=== PATIENT | female | born 1970 | race Caucasian/White ===

== ENCOUNTER 2023-05-12 10:22 | Outpatient (OUT) | payer OTHER, SELFPAY ==
[2023-05-12 10:43] LABS: Basophils Absolute Auto 0.1 10^3/uL (0.0-0.1); Basophils Percent Auto 1.4 % (0.2-2.0); Eosinophils Absolute Auto 0.2 10^3/uL (0.0-0.7); Eosinophils Percent Auto 3.4 % (0.9-7.0); Hematocrit 46.3 % (36.0-48.0); Hemoglobin 15.6 g/dL (12.0-16.0); Immature Granulocytes Abs Auto 0.01 10^3/uL (0.00-0.03); Immature Granulocytes Pct Auto 0.2 % (0.0-0.5); Lymphocytes Absolute Auto 1.3 10^3/uL (1.2-3.8); Lymphocytes Percent Auto 22.3 % (20.5-60.0); Mean Corpuscular HGB Conc 33.7 g/dL (29.9-35.2); Mean Corpuscular Hemoglobin 29.3 pg (26.7-34.0); Mean Platelet Volume 9.9 fL (9.5-13.5); Monocytes Absolute Auto 0.3 10^3/uL (0.3-0.8); Monocytes Percent Auto 6.1 % (1.7-12.0); Neutrophils Absolute Auto 3.7 10^3/uL (1.4-6.5); Neutrophils Percent Auto 66.6 % (43.0-75.0); Platelet Count 326 10^3/uL (150-450); Red Blood Count 5.32 10^6/uL (4.20-5.40); Red Cell Distribution Width 12.1 % (11.0-15.0); White Blood Count 5.6 10^3/uL (4.0-11.0)
[2023-05-12 10:56] LABS: Anion Gap 11.6; Calcium 9.2 mg/dL (8.5-10.1); Carbon Dioxide 30.5 mmol/L (21.0-32.0); Chloride 104 mmol/L (98-107); Estimated GFR (African America >60 (>=60); Estimated GFR (Non-African Ame >60 (>=60); Glucose 101 mg/dL (74-106); Potassium 4.1 mmol/L (3.5-5.1); Sodium 142 mmol/L (136-145)
== END 2023-05-12 10:23 ==
LOC: LAB 10:26
PROVIDERS: PCP Family Medicine; Visit Provider Internal Medicine Cardiovascular Disease
DX: I48.91 Unspecified atrial fibrillation (principal)
CPT/HCPCS: 36415; 80048; 85025

== ENCOUNTER 2023-08-24 16:30 | Outpatient (OUT) | payer OTHER, SELFPAY ==
[2023-08-26 04:07] LABS: FSH 77.7 mIU/mL (.); Luteinizing Hormone(LH) 17.9 mIU/mL (.)
== END 2023-08-24 16:31 | disposition home or self-care (01) ==
PROVIDERS: PCP Family Medicine
DX: Z00.00 Encounter for general adult medical examination without abnormal findings (principal)
CPT/HCPCS: 36415; 83001; 83002

== ENCOUNTER 2024-05-20 14:39 | Outpatient (OUT) | payer OTHER, SELFPAY ==
[2024-05-20 15:09] LABS: Basophils Absolute Auto 0.1 10^3/uL (0.0-0.1); Eosinophils Absolute Auto 0.3 10^3/uL (0.0-0.7); Eosinophils Percent Auto 3.3 % (0.9-7.0); Hematocrit 42.9 % (36.0-48.0); Hemoglobin 14.1 g/dL (12.0-16.0); Immature Granulocytes Abs Auto 0.01 10^3/uL (0.00-0.03); Immature Granulocytes Pct Auto 0.1 % (0.0-0.5); Lymphocytes Absolute Auto 1.7 10^3/uL (1.2-3.8); Lymphocytes Percent Auto 20.8 % (20.5-60.0); Mean Corpuscular HGB Conc 32.9 g/dL (29.9-35.2); Mean Corpuscular Volume 88.3 fL (81.0-99.0); Mean Platelet Volume 9.7 fL (9.5-13.5); Monocytes Absolute Auto 0.6 10^3/uL (0.3-0.8); Monocytes Percent Auto 7.4 % (1.7-12.0); Neutrophils Absolute Auto 5.4 10^3/uL (1.4-6.5); Neutrophils Percent Auto 67.4 % (43.0-75.0); Platelet Count 293 10^3/uL (150-450); Red Blood Count 4.86 10^6/uL (4.20-5.40); Red Cell Distribution Width 12.4 % (11.0-15.0); White Blood Count 8.1 10^3/uL (4.0-11.0)
[2024-05-20 15:26] LABS: Anion Gap 11.9; BUN Creatinine Ratio 35.2; Calcium 8.8 mg/dL (8.5-10.1); Carbon Dioxide 30.1 mmol/L (21.0-32.0); Chloride 104 mmol/L (98-107); Estimated GFR (African America >60 (>=60); Estimated GFR (Non-African Ame >60 (>=60); Glucose 93 mg/dL (74-106); Sodium 142 mmol/L (136-145)
== END 2024-05-20 14:40 | disposition home or self-care (01) ==
LOC: LAB 14:44
PROVIDERS: PCP Family Medicine; Visit Provider Internal Medicine Cardiovascular Disease
DX: I48.0 Paroxysmal atrial fibrillation (principal)
CPT/HCPCS: 36415; 80048; 85025

== ENCOUNTER 2024-06-06 07:54 | Outpatient (OUT) | payer OTHER, SELFPAY ==
--- NOTE | 2024-06-06 08:01 | CA_ITS ---
Patient Name: HILDA STANLEY MR#: [id number] : 1970 Exam Date: 06/06/2024 Ordering Doctor: KHAI SAEED ECHOCARDIOGRAM REPORT PROCEDURE: CA ECHO DOPPLER COMPLETE INDICATIONS: Paroxysmal A-fib COMPARISON: None. DESCRIPTION: COMPLETE ECHOCARDIOGRAM Real-time transthoracic echocardiography with 2D, M-mode, spectral and color flow Doppler performed. QUALITY: Technical quality was good. LEFT VENTRICLE: Normal chamber size. Borderline left ventricular hypertrophy. Abnormal septal motion, likely due to bundle branch block. Global left ventricular systolic function is normal. LV EF: Estimated left ventricular ejection fraction is 60-65 % DIASTOLIC: Diastolic function is indeterminate. ATRIAL SEPTUM: LEFT ATRIUM: Moderate dilatation. RIGHT ATRIUM: Moderate dilatation. RIGHT VENTRICLE: Normal chamber size. Normal right ventricular systolic function. Pacer wire present. TRICUSPID VALVE: Normal mobility and thickness. No stenosis with moderate regurgitation. Mild pulmonary hypertension. RVSP 35 mmHg MITRAL VALVE: Normal mobility and thickness. No evidence of mitral valve stenosis. Mild mitral annular calcification. Trivial mitral regurgitation. AORTIC VALVE: Normal trileaflet appearance. Thickened aortic valve. Normal leaflet mobility. No evidence of aortic valve stenosis. No aortic regurgitation. AORTIC ROOT: Normal diameter and appearance. PULMONIC VALVE: Normal thickness and mobility. No stenosis. Trivial regurgitation. PERICARDIUM: No evidence of pericardial effusion. IVC: Normal size with partial collapse. PLEURA: CONCLUSION: 1. Borderline concentric left ventricular hypertrophy with normal systolic function. Abnormal septal motion is likely due to bundle branch block. LVEF is estimated at 60 to 65%. 2. Normal right ventricular size and systolic function. 3. Moderate biatrial dilatation. 4. Moderate tricuspid regurgitation. 5. Mildly elevated right-sided pressures. 6. No pericardial effusion. Adult Echocardiography Procedure Report Left Ventricle LVEDD (3.7 - 5.6 cm): 4.75 cm LVESD (2.2 - 4.0 cm): 3.47 cm LVIVS thickness (0.6 - 1.2 cm): 0.93 cm LVPW thickness (0.5 - 1.0 cm): 1.07 cm e': 0.10 m/s E - e': 6.58 LVOT Max Gradient: 5.15 mm[Hg] LVOT Area (cm2): 1.13 m/s Peak Velocity (LVOT): 1.13 m/s Mean Velocity (LVOT): 0.78 m/s LVOT Diameter 1.88 cm Left Ventricular Ejection Fraction: 60-65 % Left Atrium LA Volume Index (2D A2C): 39.96 ml/m2 Left Atrium Systolic Dimension: 3.74 cm Mitral Valve MV E to A Ratio: 1 Mitral Valve A-Wave Peak Velocity: 0.64 m/s Mitral Valve E-Wave Peak Velocity: 0.64 m/s Right Ventricle RV Internal Diastolic Dimension: 3.28 cm Aorta AO Root Diam: 3.33 cm Ascending Ao Diam: 3.37 cm, 3.18 cm Aortic Valve AoV Area (Peak Henrry): 2.32 cm2, 2.32 cm2 AoV Area (VTI): 2.20 cm2, 2.20 cm2 Peak Velocity(Antegrade Flow): 1.36 m/s Peak Gradient(Antegrade Flow): 7.40 mm[Hg] Mean Velocity(Antegrade Flow): 0.90 m/s Mean Gradient(Antegrade Flow): 3.83 mm[Hg] Velocity Time Integral: 27.97 cm Tricuspid Valve Peak Velocity (Regurgitant Flow): 2.18 m/s, 2.60 m/s, 2.16 m/s Pulmonic Valve Mean Gradient: 1.47 mm[Hg], 1.60 mm[Hg] Mean Velocity: 0.56 m/s, 0.59 m/s Peak Velocity: 0.87 m/s Peak Gradient: 2.82 mm[Hg], 3.27 mm[Hg] Right Atrium Right Atrium Systolic Pressure: 45.96 ml, 45.96 ml Dictated by: Rick Landrum M.D. on 06/06/2024 at 13:37 Approved by: Rick Landrum M.D. on 06/06/2024 at 13:41
== END 2024-06-06 07:55 | disposition home or self-care (01) ==
LOC: CARD 07:54
PROVIDERS: PCP Family Medicine; Visit Provider Internal Medicine Cardiovascular Disease
DX: I48.0 Paroxysmal atrial fibrillation (principal)
CPT/HCPCS: 93306

== ENCOUNTER 2024-07-18 16:01 | Outpatient (OUT) | payer OTHER, SELFPAY ==
[2024-07-18 16:21] LABS: Basophils Absolute Auto 0.1 10^3/uL (0.0-0.1); Basophils Percent Auto 0.9 % (0.2-2.0); Eosinophils Absolute Auto 0.2 10^3/uL (0.0-0.7); Eosinophils Percent Auto 2.7 % (0.9-7.0); Hematocrit 44.2 % (36.0-48.0); Hemoglobin 14.6 g/dL (12.0-16.0); Immature Granulocytes Abs Auto 0.02 10^3/uL (0.00-0.03); Immature Granulocytes Pct Auto 0.2 % (0.0-0.5); Lymphocytes Percent Auto 23.2 % (20.5-60.0); Mean Corpuscular Hemoglobin 28.9 pg (26.7-34.0); Mean Corpuscular Volume 87.5 fL (81.0-99.0); Mean Platelet Volume 9.5 fL (9.5-13.5); Monocytes Absolute Auto 0.6 10^3/uL (0.3-0.8); Monocytes Percent Auto 7.5 % (1.7-12.0); Neutrophils Absolute Auto 5.6 10^3/uL (1.4-6.5); Neutrophils Percent Auto 65.5 % (43.0-75.0); Platelet Count 317 10^3/uL (150-450); Red Blood Count 5.05 10^6/uL (4.20-5.40); White Blood Count 8.5 10^3/uL (4.0-11.0)
[2024-07-18 16:36] LABS: Troponin I High Sensitivity 5.8 pg/mL (4.0-51.3)
[2024-07-18 17:14] LABS: Erythrocyte Sedimentation Rate 5 mm/hr (<=30)
[2024-07-20 14:09] LABS: C-Reactive Protein, Cardiac 0.24 mg/L (0.00-3.00)
== END 2024-07-18 16:02 | disposition home or self-care (01) ==
LOC: LAB 16:01
PROVIDERS: PCP Family Medicine; Visit Provider Nurse Practitioner Family
DX: R07.89 Other chest pain (principal); R06.00 Dyspnea, unspecified; R06.02 Shortness of breath
CPT/HCPCS: 36415; 84484; 85025; 85652; 86140

== ENCOUNTER 2024-07-22 07:06 | Outpatient (OUT) | payer OTHER, SELFPAY ==
--- OUTSIDE RECORDS SUMMARY | 2024-07-22 07:09 | XMS_ITS | CCD ---
Author Organization [facility] Care Team Providers Care Hogshead Builder Name Role Phone Rashid Pruitt Attending Unavailable Rashid Pruitt Admitting Unavailable Kasey Pop Primary Care Unavailable RANDAL MEAZ Admitting Unavailable RANDAL MEZA Attending Unavailable KASEY POP Referring Unavailable KASEY POP Primary Care Unavailable NITA CHIANG Admitting Unavailable NITA CHIANG Attending Unavailable KASEY POP Referring Unavailable KASEY POP Primary Care Unavailable UNKNOWN, PROVIDER Admitting Unavailable UNKNOWN, PROVIDER Attending Unavailable KASEY POP Referring Unavailable KASEY POP Primary Care Unavailable PA Procedure Practitioner Unavailab le UNKNOWN, PROVIDER Surgeon Unavailable PA Procedure Practitioner Unavailab RANDAL Hogan Surgeon Unavailable Monica Garcia Unavailable LUIS Cardozo, DR AUNG Syed Admitting Unavaila skyler Cardozo, DR AUNG Syed Attending Unavaila skyler POP ., DR PARKS Primary Care Unavailable CLEMENT PEREZ Admitting Unavailable CLEMENT PEREZ Attending Unavailable MARTIN ., DR PARKS Primary Care Unavailable CLEMENT PEREZ Consulting Unavailable MARTIN ., DR APRKS Admitting Unavailable MARTIN ., DR PARKS Attending Unavailable MARTIN ., DR PARKS Primary Care Unavailable MARTIN ., DR PARKS Consulting Unavailable Kasey Pop Primary Care Physician Alexandria Fernandez Referring Unavailable Alexandria Fernandez Attending Unavailable Alexandria Fernandez Admitting Unavailable CLEMENT PEREZ Admitting Unavailable CLEMENT PEREZ Attending Unavailable CLEMENT PEREZ Referring Unavailable DELFINA TAO Attending Unavailable CLEMENT PEREZ Referring Unavailable STANLEY REYES Attending Unavailable CLEMENT PEREZ Attending Unavailable CLEMENT PEREZ Referring Unavailable CLEMENT PEREZ Referring Unavailable Allergies Allergy Classification Reported Allergen(s) Allergy Type Date of Onset Reaction(s) Facility (1 source) 09068,00; Translations: [Unknown] Propensity to adverse reactions (disorder) 9 [facility] Repository (1 source) No Known Medication Allergies; Translations: [No Known Medication Allergies] Propensity to adverse reactions (disorder) [facility] Repository Medications Current Medications Medication Drug Class(es) Dates Sig (Normalized) Sig (Original) Acetaminophen / oxyCODONE (1 source) Opioid Agonist Start: 04-08-2014 Percocet 325 mg-5 mg Tab 1 tab(s), Oral, q4hr as needed for pain, 15 tab(s), Refill(s) 0, Take one tab by mouth every four hours as needed for pain Start Date: 04/08/14 Status: Ordered aspirin 81 mg delayed release oral tablet (2 sources) Platelet Aggregation Inhibitor, Nonsteroidal Anti-inflammatory Drug Start: 11-11-2021 take 1 mg by mouth once daily aspirin 81 mg Oral EC Tab mg tab(s), Oral, Daily, Refills(s) 0 Start Date: 11/11/21 Status: Ordered Aspirin Active 24 hr dilTIAZem hydrochloride 240 mg extended release oral capsule (2 sources) Calcium Channel Sarah Start: 11-11-2021 take 1 capsule by mouth once daily Cardizem CD 240 mg/24 hours Cap-ER mg cap(s), Oral, Daily, Refills(s) 0 Start Date: 11/11/21 Status: Ordered Cartia XT Active lisinopril 5 mg oral tablet (2 sources) Angiotensin Converting Enzyme Inhibitor Start: 11-11-2021 take 1 mg by mouth once daily lisinopril 5 mg Tab mg tab(s), Oral, Daily, Refills(s) 0 Start Date: 11/11/21 Status: Ordered Lisinopril Activ e promethazine hydrochloride 25 mg oral tablet (1 source) Phenothiazine Start: 04-08-2014 take 1 tablet by mouth every six hours as needed for nausea and nausea and vomiting, then take 1 tablet by mouth every six hours as needed for nausea and nausea and vomiting Phenergan 25 mg Tab 1 tab, Oral, q6hr, PRN Nausea, Take one by mouth every six hours for nausea and vomiting, # 10 tab(s), Refills(s) 0 Start Date: 04/08/14 Status: Ordered valACYclovir 1000 mg oral tablet (1 source) Herpesvirus Nucleoside Analog DNA Polymerase Inhibitor, Herpes Simplex Virus Nucleoside Analog DNA Polymerase Inhibitor, Herpes Zoster Virus Nucleoside Analog DNA Polymerase Inhibitor Start: 09-08-2021 take 1 tablet by mouth every eight hours Valtrex 1 GM 1 tablet Orally tid for 10 day(s) Aug, Active Problems Active Problems Problem Classification Problem Date Documented Date Episodic/Chronic Acute cerebrovascular disease (1 source) Cerebrovascular accident 11-11-2021 Chronic Calculus of urinary tract (1 source) Kidney stone 11-11-2021 Episodic Cardiac and circulatory congenital anomalies (4 sources) Persistent left superior vena cava; Translations: [PERSISTENT LEFT SUPERIOR VENA CAVA] Onset: 04-02-2023 Chronic Cardiac dysrhythmias (5 sources) Atrial fibrillation; Translations: [Paroxysmal atrial fibrillation] Onset: 03-24-2023 11-11-2021 Chronic Conduction disorders (4 sources) Presence of cardiac pacemaker; Translations: [Encounter for adjustment and management of automatic implantable cardiac defibrillator] Onset: 04-04-2023 Chronic Essential hypertension (2 sources) Essential (primary) hypertension; Translations: [Essential (primary) hypertension] Onset: 03-24-2023 Chronic Genitourinary symptoms and ill-defined conditions (1 source) Nocturia 01-13-2022 Episodic Heart valve disorders (1 source) Rheumatic tricuspid insufficiency; Translations: [RHEUMATIC TRICUSPID INSUFFICIENCY] Onset: 04-04-2023 Chronic Other circulatory disease (2 sources) Presence of other cardiac implants and grafts; Translations: [Presence of other cardiac implants and grafts] Onset: 05-12-2024 Chronic Unclassified (1 source) Asymptomatic microscopic hematuria 01-13-2022 Unclassified (1 source) Supraventricular tachycardia, unspecified; Translations: [Supraventricular tachycardia, unspecified] Onset: 03-24-2023 Past or Other Problems Problem Classification Problem Date Documented Date Episodic/Chronic Unclassified (1 source) Supraventricular tachycardia, unspecified; Translations: [Supraventricular tachycardia, unspecified] Onset: 05-12-2024 Viral infection (1 source) Zoster without complications; Translations: [Herpes zoster without complication B02.9] Onset: 09-08-2021 Resolved: 09-08-2021 Episodic Results Test Name Value Interpretation Reference Range Facility 36on 07-19-2024 36 Appreciate your help! [facility] 36 She can get a limite d ECHO, assessing for effusion. I didn't see anything concerning on EKG, did you Dr. Perez? [facility] 36on 07-18-2024 36 Just spoke with Hollycoleen tano and she hasn't transmitted since 07/12. She just left the office. I will email the ECG to you and Dr. Perez. She will have labs drawn right now. I did ask her to do a manual transmission when she gets home. [facility] 36 Patient just had ech o last month prior to ablation. Did you still want another one? I spoke with scheduling at [facility] and they can't get her in for an echo for a week or so. Unless you wanted a limited, as they have more wiggle room for that. Patient is coming to the office right now for EKG and labs. Will call Evoke right now also. [facility] 36 Patient called to make you aware of an episode that happened yesterday morning around 7:50am. She was woken up by chest pain. Says she wasn't able to breathe during this time. Patient states it felt like someone was gripping my heart . She says she hasn't felt right since then. She did not go to the ED. Any suggestions? [facility] Follow-Upon 07-12-2024 Follow-Up [id number] Todd Stanley 1970 F Date Provider Department Center 07/12/2024 166-DELFINA TAO [facility]ARD [facility] Family History Problem Relation Age of Onset Bilateral breast cancer Other Diabetes Other Coronary artery disease Other Hypertension Other Family Status - Relation Status Age at Other Level of Service:18057 PA OFFICE/OUTPATIENT ESTABLISHED MOD MDM 30 MIN Reason for Visit and Comments: Atrial Fibrillation [80] Hypertension [077478] [facility] Telephoneon 07-01-2024 Telephone [id number] Todd Stanley 1970 F Date Provider Department Center 07/01/2024 Jimmie-MEHRDAD LOPEZ [facility] [place] [facility] Family History Problem Relation Age of Onset Bilateral breast cancer Other Diabetes Other Coronary artery disease Other Hypertension Other Family Status - Relation Status Age at Other Reason for Visit and Comments: 3 week post ablation f/u [Other] Normal [facility] Telephoneon 06-16-2024 Telephone [id number] Todd Stanley 1970 F Date Provider Department Center 06/16/20241986-MEHRDAD LOPEZ [facility] [place] [facility] Family History Problem Relation Age of Onset Bilateral breast cancer Other Diabetes Other Coronary artery disease Other Hypertension Other Family Status - Relation Status Age at Other Reason for Visit and Comments: week f/u post ablation [Other] Normal [facility] HPon 06-09-2024 [facility] Electrophysiology Consult Note Reason for visit: Afib ablation 06/09/24 Pt here for Afib ablation. Pt had episode of AF 1 month ago and was present for >1hr. She has come for Afib ablation. She is ablae to tolerate DOAC and previously underwent WATCHMAN for hematuria. Previously, she underwent hysterectomy in October of 2018 and in November of 2018 she sustained a cerebrovascular event consisting of slurred speech and unsteady gait among other symptoms. She was evaluated by Dr. Tiago Howe from Neurology at the time of her cerebrovascular symptoms according to Neurology note Left-sided weakness and left-sided numbness followed by an acute confusional state and transient global type a knee just symptoms. She was also observed to have dysarthria and difficulty with her speech as well as a left facial droop . An MRI of the brain could not be performed due to her pacemaker not being MRI compatible. At that time she was evaluated by Cardiology and interrogation of her pacemaker revealed 1.7% burden of atrial fibrillation. She was was recommended anticoagulation therapy. She has been maintained on apixaban 5 milligram twice daily. 06/08/23 HPI: patient for follow-up s/p generator change Submuscular PPM patient was previously seen by Jonathan Crenshaw for postop pain and as a precaution antibiotics were prescribed. she has come for follow-up for evaluation of her site. Patient denies aches, chills, fever --- 03/24/23 HPI: Todd Stanley is a 53 y.o. 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 She then had a gen change in [address] Cain with a suubsequent pocket revision by Dr Grider 2 months later. Subsequently this was infected and she underwent lead extraction at [facility]. A new dual chamber system was implanted at [facility]. She is also s/p WATCHMAN implant by Dr DAVILA. Now her device has approached HANNA. The current device is submuscular. She has [employer] device with 96% A pacing and 69% V pacing. She has underlying junctional and noted to have 2: 1 block when HR is >100bpm. PMH: Past Medical History: Diagnosis Date Abnormal ECG Arrhythmia Atrial fibrillation (CMS/HCC) Hypertension Kidney stones Myalgia Sinus node dysfunction (CMS/HCC) PSH: Past Surgical History: Procedure Laterality Date ABLATION OF DYSRHYTHMIC FOCUS CARDIAC CATHETERIZATION SECTION, CLASSIC INSERT / REPLACE / REMOVE PACEMAKER 2007 OTHER SURGICAL HISTORY watchman device placed SH: Social Determinants of Health Tobacco Use: Low Risk (06/09/2024) Patient History Smoking Tobacco Use: Never Smokeless Tobacco Use: Never Passive Exposure: Never Alcohol Use: Not on file Financial Resource Strain: Not on file Food Insecurity: Not on file Transportation Needs: Not on file Physical Activity: Not on file Stress: Not on file Social Connections: Not on file Intimate Partner Violence: Not At Risk (06/08/2023) [place] Safety & Environment Fear of Current or Ex-Partner: No Emotionally Abused: No Physically Abused: No Sexually Abused: No Physically or Sexually Abused: Not on file Depression: Not at risk (06/08/2023) PHQ-2 PHQ-2 Score: 0 Housing Stability: Not on file Utilities: Not on file Allergies: No Known Allergies Weight: 54.9kg Visit Vitals BP 154/86 Pulse 65 Temp 36.3 ???C (97.3 ???F) (Temporal) Resp 16 Ht 1.575 m (5' 2 ) Wt 59.7 kg (131 lb 9.8 oz) SpO2 100% BMI 24.07 kg/m??? OB Status Postmenopausal Smoking Status Never BSA 1.62 m??? Meds: No current facility-administered medications on file prior to encounter. Current Outpatient Medications on File Prior to Encounter Medication Sig Dispense Refill aspirin 81 mg EC tablet Take 81 mg by mouth in the morning. dilTIAZem CD (Cardizem CD) 120 mg 24 hr capsule TAKE 1 CAPSULE TWICE A DAY 60 capsule 0 lisinopril 5 mg tablet TAKE 1 TABLET DAILY 90 tablet 3 traMADol (Ultram) 50 mg tablet TAKE 1 TABLET BY MOUTH EVERY 8 HOURS NEEDED FOR SEVERE PAIN ROS: Review of Systems Constitutional: Positive for malaise/fatigue. All other systems reviewed and are negative. Physical Exam: Constitutional General Appearance: well-nourished, well-developed, appears stated age Level of Distress: comfortable Psychiatric Mental Status: alert, normal affect Orientation: oriented to time, place, and person Insight: good judgement Eyes Lids and Conjunctivae: non-injected, no xanthelasma ENMT Ears: no lesions on external ear Nose: no lesions on external nose Oropharynx: no cyanosis, no pallor Neck Neck: supple, trachea midline Carotid Arteries: bilateral normal upstroke, no bruits Jugular Veins: normal jugular venous pressure Thyroid: not enlarged Lungs Respiratory Effort: unlabored Chest Exam: normal curvature, no thoracic deformity Auscultation: clear, no w (more content not included)... Normal [facility] NURSNOTEon 06-09-2024 NURSNOTE EKG called to do EKG . Pt/inr sent Normal [facility] Orders Onlyon 06-09-2024 Orders Only [id number] Todd Stanley 1970 F Date Provider Department Center 06/09/20241986-MEHRDAD LOPEZ [facility] [place] [facility] Family History Problem Relation Age of Onset Bilateral breast cancer Other Diabetes Other Coronary artery disease Other Hypertension Other Family Status - Relation Status Age at Other Normal [facility] POCT GLUCOSE METER UNSOLICIT ED RESULTSon 06-09-2024 Glucose [Mass/Vol] 104 mg/dL Normal 70-105 [facility] Comment on above: Order Comment: Waive d Testing in the ED is performed under the ED CLIA certificate #[id number]. Result Comment: [facility] [place] Performed By: #### L [id number] ####[facility] ([facility] [place] [address] PROTIME-INRon 06-09-2024 INR IN PPP BY COAGULATION ASSAY 0.97 Normal 0.90-1.10 [facility] Comment on above: Result Comment: [facility] P RECOMMENDED INR FOR WARFARIN THERAPY CONDITION INR PROPHYLAXIS OF VENOUS THROMBOSIS 2-3 (HIGH-RISK SURGERY) TREATMENT OF VENOUS THROMBOSIS 2-3 TREATMENT OF PULMONARY EMBOLISM 2-3 PREVENTION OF SYSTEMIC EMBOLISM: 2-3 ACUTE MYOCARDIAL INFARCTION TISSUE HEART VALVES VALVULAR HEART DISEASE ATRIAL FIBRILLATION RECURRENT SYSTEMIC EMBOLISM MECHANICAL HEART VALVE 2.5-3.5 FROM: ORAL ANTICOAGULANTS. MECHANISM OF ACTION, CLINICAL EFFECTIVENESS, AND OPTIMAL THERAPEUTIC RANGE. CHEST 1995;108:231S-246S. Performed By: #### L [id number] ####[facility] ([facility] [place] [address] PROTHROMBIN TIME (PT) IN PPP BY COAGULATION ASSAY 12.9 Seconds Normal 12.3-14.8 [facility] Comment on above: Performed By: #### L [id number] ####[facility] ([facility] [place] [address] CTA CHEST W IV CONTRASTon CTA CHEST W IV CONTRAST CTA CHEST W IV CONTRAST 06/02/2024 8:49 AM CLINICAL INDICATIONS: Paroxysmal atrial fibrillation. Preablation evaluation. PROTOCOL: Gated chest CTA CONTRAST: 100 mL Omnipaque 350 TECHNIQUE: Multidetector CT axial slices of the chest were obtained with IV contrast. Multiplanar reformats were performed and viewed on a separate workstation and reviewed to further define anatomy and possible pathology. All CT scans at this facility use dose modulation, iterative reconstruction, and/or weight based dosing when appropriate to reduce radiation dose to as low as reasonably achievable. COMPARISON: None. FINDINGS: Lower neck: Thyroid gland within normal limits, no supraclavicle adenopathy. Vessels: Pulmonary arteries are Within normal limits. Mild atherosclerotic changes in the aorta. and coronary arteries. Mediastinum and Justina: Within normal limits. Heart: Normal size. No pericardial effusion. Airways: Within normal limits Lungs: A lateral dependent atelectasis. No other parenchymal abnormality Pleura: Within normal limits. Chest Wall: Left subclavian pacer with wires coursing within the right heart and coronary sinus associated with metal artifacts. Upper Abdomen: Within normal limits. Bones: Mild bony spurring in the thoracic spine suggesting mild spondylosis. No acute bony abnormality. Small sclerotic bone island is seen in the thoracic spine at approximately T10 level 3-D volume rendered images of the left atrium and pulmonary veins are obtained in various projections. Watchman device is seen in the left atrial appendage. Left superior pulmonary vein ostium measures 1.1 cm in diameter and first branch is approximately 2 cm from the ostium. Left inferior pulmonary vein ostium is 1.1 cm and first branch is approximately 2.4 cm from the ostium. The right superior pulmonary vein ostium is 1.7 cm in diameter and first branch is approximately 1.7 cm from the ostium. The right inferior pulmonary vein ostium is 1.5 cm and first branch is approximately 1.6 cm from the ostium. Contrast-filled esophagus is seen immediately posterior to the left atrium and in close proximity to the right inferior pulmonary vein ostium and also the left inferior pulmonary vein ostium. IMPRESSION: Watchman device in the left atrial appendage with no definite complications appreciated. Left subclavian pacer in place with wires coursing within the right heart and coronary sinus associated with metallic artifacts. Normal size and configuration of the left atrium and 2 pulmonary veins on each side with the measurements described above. Otherwise, no evidence of acute pulmonary pathology. Electronically signed: Fatmata Wheeler MD. Not Vldtd Invalid Interpretation Code [facility] Comment on above: Order Comment: Modesta freedman schedule prior to Jun 30 Orders Onlyon 05-17-2024 Orders Only [id number] Todd Stanley 1970 F Date Provider Department Center 05/17/2024 Sosa-AMYSTANLEY Salas Leyla Baez. Family History Problem Relation Age of Onset Bilateral breast cancer Other Diabetes Other Coronary artery disease Other Hypertension Other Family Status - Relation Status Age at Other Normal [facility] Prep for Procedureon 024 Prep for Procedure [id number] Todd Stanley 1970 F Date Provider Department Center 05/17/2024 CLEMENT AGUAYO [facility] [place] [facility] Family History Problem Relation Age of Onset Bilateral breast cancer Other Diabetes Other Coronary artery disease Other Hypertension Other Family Status - Relation Status Age at Other Normal [facility] Office Visiton 05-12-2024 Follow-up visit [id number] Todd Stanley 1970 F Date Provider Department Center 05/12/2024 STANLEY GONZALEZ QIAN Plummer Family History Problem Relation Age of Onset Bilateral breast cancer Other Diabetes Other Coronary artery disease Other Hypertension Other Family Status - Relation Status Age at Other Level of Service:06735 PA OFFICE/OUTPATIENT ESTABLISHED MOD MDM 30 MIN Normal [facility] MA Mamm Screen w/CAD if perf and 3D Bilon 12-28-2023 MA Mamm Screen w/CAD if perf and 3D Raymond Exam Date/Time: 12/24/2023 16:35 EST Reason for Exam: Z12.31 Report IMPRESSION: BIRADS 1 NEGATIVE, NORMAL INTERVAL FOLLOW-UP.12 MONTH RECALL. CLINICAL HISTORY: Z12.31. COMPARISON: 10/06/2018. COMMENT: Routine views and tomosynthesis views of both breasts were obtained. There are scattered areas of fibroglandular density. No dominant breast mass nor neoplastic calcifications are noted. There has been no significant change when compared to the prior exam. The examination was reviewed with Computer Aided Detection. Breast Density: No Mammography is very important to your health. The current [employer] and National [employer] Network guidelines recommends annual mammography beginning at age 40. This facility utilizes a reminder system to ensure all patients receive reminder notifications at the appropriate time based on the recommendations of this exam. Board Certified Radiologists. Accredited by the ACR and FDA. Ordering Provider: Alexandria Fernandez FINAL REPORT Dictated: 12/28/2023 11:46 am Saroj Alcala M.D. Signed (Electronic Signature): 12/28/2023 11:46 am Signed by: Saroj Alcala M.D. Transcribed by: TYSON Technologist: BURTON Assessment: BI-RADS Category 1-Negative Recommendation: Normal interval follow-up Normal [facility] Consent for Treatmenton Consent for Treatment [id number] .[id number] Normal [facility] Physician Orderon 12-15-2023 Physician Order [id number] .00TIFF Normal [facility] ECHOCARDIO M/2D COMPLETEon 0 04-02-2023 ECHOCARDIO M/2D COMPLETE Patient: TODD STANLEY Exam Date: 04/02/2023 : 1970 Gender:F Ordering : CLEMENT PEREZ Admission #: [id number] Family : Order #: [id number] CLICK HERE TO VIEW EXAM ECHOCARDIOGRAM REPORT PROCEDURE: CARDIO PULMONARY ECHOCARDIO M/2D COMP INDICATIONS: Persistent left superior vena cava COMPARISON: None. DESCRIPTION: COMPLETE ECHOCARDIOGRAM Real-time transthoracic echocardiography with 2D, M-mode, spectral and color flow Doppler performed. QUALITY: Technical quality was good. LEFT VENTRICLE: Normal chamber size. Moderate concentric left ventricular hypertrophy. LV EF: Global left ventricular systolic function is hyperdynamic. Calculated left ventricular ejection fraction is 69% DIASTOLIC: Diastolic function is normal. ATRIAL SEPTUM: Inadequately seen. LEFT ATRIUM: Severe dilatation. RIGHT ATRIUM: Mild dilatation. RIGHT VENTRICLE: Normal chamber size. Normal right ventricular systolic function. Pacer wire present. TRICUSPID VALVE: Normal mobility and thickness. Moderate regurgitation. Mild pulmonary hypertension. RVSP 39mmHg MITRAL VALVE: Normal mobility and thickness. No evidence of mitral valve stenosis. There is no mitral annular calcification. Trivial mitral regurgitation. AORTIC VALVE: Normal trileaflet appearance. No visible sclerosis. Normal leaflet mobility. No evidence of aortic valve stenosis. Trivial aortic regurgitation. AORTIC ROOT: Normal diameter and appearance. PULMONIC VALVE: Normal thickness and mobility. No stenosis. No regurgitation. PERICARDIUM: Anterior free space; trivial effusion versus fat pad. IVC: Mild dilatation. No collapse CONCLUSION: 1. Global left ventricular systolic function is hyperdynamic; visually estimated ejection fraction 65 to 70%. No wall motion abnormalities. 2. Moderately increased left ventricular wall thickness. 3. Diastolic function is normal. 4. Biatrial enlargement. 5. The right ventricle is normal in size and systolic function. 6. Moderate tricuspid regurgitation. Mildly elevated right-sided pressures. 7. Anterior free space; trivial effusion versus fat pad. Adult Echocardiography Procedure Report Left Ventricle LVEDD (3.7 - 5.6 cm): 4.27 cm LVESD (2.2 - 4.0 cm): 3.11 cm LVIVS thickness (0.6 - 1.2 cm): 1.41 cm LVPW thickness (0.5 - 1.0 cm): 1.16 cm e': 0.10 m/s E - e': 6.90 LVOT Max Gradient: 5.26 mm[Hg] Peak Velocity (LVOT): 1.15 m/s Mean Velocity (LVOT): 0.79 m/s LVOT Diameter 2.06 cm Left Ventricular Ejection Fraction: 52.92 %, 52.92 % Left Atrium LA Volume Index (2D A2C): 75.84 ml, 75.84 ml Left Atrium Systolic Dimension: 3.88 cm Mitral Valve MV E to A Ratio: 1, 0.93 Mitral Valve A-Wave Peak Velocity: 0.74 m/s, 0.74 m/s Mitral Valve E-Wave Peak Velocity: 0.74 m/s, 0.68 m/s Right Ventricle RV Internal Diastolic Dimension: 3.02 cm Aorta AO Root Diam: 3.33 cm Ascending Ao Diam: 2.50 cm Aortic Valve AoV Area (Peak Henrry): 2.41 cm2, 2.41 cm2 AoV Area (VTI): 2.38 cm2, 2.38 cm2 Peak Velocity(Antegrade Flow): 1.59 m/s Peak Gradient(Antegrade Flow): 10.10 mm[Hg] Mean Velocity(Antegrade Flow): 1.03 m/s Mean Gradient(Antegrade Flow): 5.00 mm[Hg] Velocity Time Integral: 28.08 cm Tricuspid Valve Peak Velocity (Regurgitant Flow): 2.46 m/s, 2.35 m/s, 2.41 m/s, 2.17 m/s Peak Velocity: 0.55 m/s Pulmonic Valve Mean Gradient: 2.12 mm[Hg], 2.01 mm[Hg], 2.09 mm[Hg], 2.12 mm[Hg] Mean Velocity: 0.67 m/s, 0.65 m/s, 0.67 m/s, 0.68 m/s Peak Velocity: 1.02 m/s, 0.98 m/s, 0.98 m/s, 0.98 m/s Peak Gradient: 4.17 mm[Hg], 3.83 mm[Hg], 3.83 mm[Hg], 3.83 mm[Hg] Right Atrium Right Atrium Systolic Pressure: 50.68 ml, 50.68 ml Dictated by: Shellie Prince M.D. on 04/02/2023 at 15:04 Approved by: Shellie Prince M.D. on 04/02/2023 at 15:09 Normal [facility] CBC AUTO DIFFon 07-10-2022 BASO # 0.1 103/ul Normal 0.0-0.1 [facility] Comment on above: Performed By: #### H FPFCBC #### [facility] [address] [place] [address] Dr. Landen Mcrae Basophils/100 WBC (Bld) 1.0 % Normal 0.2-2.0 [facility] Comment on above: Performed By: #### H FPFCBC #### [facility] [address] [place] [address] Dr. Landen Mcrae EO # 0.4 103/ul Normal 0.0-0.7 [facility] Comment on above: Performed By: #### H FPFCBC #### [facility] [address] [place] [address] Dr. Landen Mcrae Eosinophils/100 WBC (Bld) 4.0 % Normal 0.9-7.0 [facility] Comment on above: Performed By: #### H FPFCBC #### [facility] [address] [place] [address] Dr. Landen Mcrae Erythrocyte distribution width (RBC) [Ratio] 12.3 % Normal 11.0-15.0 [facility] Comment on above: Performed By: #### H FPFCBC #### [facility] [address] [place] [address] Dr. Landen Mcrae Hematocrit (Bld) [Volume fraction] 41.9 % Normal 36.0-48.0 [facility] Comment on above: Performed By: #### H FPFCBC #### [facility] [address] [place] [address] Dr. Landen Mcrae Hemoglobin (Bld) [Mass/Vol] 14.1 g/dL Normal 12.0-16.0 [facility] Comment on above: Performed By: #### H FPFCBC #### [facility] [address] [place] [address] Dr. Landen Mcrae IG # 0.04 10e3/ul Critically high 0.00-0.03 [facility] Comment on above: Performed By: #### H FPFCBC #### [facility] [address] [place] [address] Dr. Landen Mcrae IG % 0.5 % Normal 0.0-0.5 [facility] Comment on above: Performed By: #### H FPFCBC #### [facility] [address] [place] [address] Dr. Landen Mcrae LYMPH # 1.6 103/ul Normal 1.2-3.8 [facility] Comment on above: Performed By: #### H FPFCBC #### [facility] [address] [place] [address] Dr. Landen Mcrae Lymphocytes/100 WBC (Bld) 17.7 % Critically low 20.5-60.0 [facility] Comment on above: Performed By: #### H FPFCBC #### [facility] [address] [place] [address] Dr. Landen Mcrae MCH (RBC) [Entitic mass] 29.5 pg Normal 26.7-34.0 [facility] Comment on above: Performed By: #### H FPFCBC #### [facility] [address] [place] [address] Dr. Landen Mcrae MCHC (RBC) [Mass/Vol] 33.7 g/dL Normal 29.9-35.2 [facility] Comment on above: Performed By: #### H FPFCBC #### [facility] [address] [place] [address] Dr. Landen Mcrae MCV (RBC) [Entitic vol] 87.7 fL Normal 81.0-99.0 [facility] Comment on above: Performed By: #### H FPFCBC #### [facility] [address] [place] [address] Dr. Landen Mcrae MONO # 0.6 103/ul Normal 0.3-0.8 [facility] Comment on above: Performed By: #### H FPFCBC #### [facility] [address] [place] [address] Dr. Landen Mcrae Monocytes/100 WBC (Bld) 7.0 % Normal 1.7-12.0 [facility] Comment on above: Performed By: #### H FPFCBC #### [facility] [address] [place] [address] Dr. Landen Mcrae NEUT # 6.2 103/ul Normal 1.4-6.5 [facility] Comment on above: Performed By: #### H FPFCBC #### [facility] [address] [place] [address] Dr. Landen Mcrae Neutrophils/100 WBC (Bld) 69.8 % Normal 43.0-75.0 [facility] Comment on above: Performed By: #### H FPFCBC #### [facility] [address] [place] [address] Dr. Landen Mcrae Platelet mean volume (Bld) [Entitic vol] 9.9 fL Normal 9.5-13.5 [facility] Comment on above: Performed By: #### H FPFCBC #### [facility] [address] [place] [address] Dr. Landen Mcrae PLT 344 103/ul Normal 150-450 [facility] Comment on above: Performed By: #### H FPFCBC #### [facility] [address] [place] [address] Dr. Landen Mcrae RBC 4.78 106/ul Normal 4.20-5.40 [facility] Comment on above: Performed By: #### H FPFCBC #### [facility] [address] [place] [address] Dr. Landen Mcrae WBC 8.8 103/ul Normal 4.0-11.0 [facility] Comment on above: Performed By: #### H FPFCBC #### [facility] [address] [place] [address] Dr. Landen Mcrae HEALTHFAIR PROFILEon 022 Albumin [Mass/Vol] 3.8 g/dL Normal 3.4-5.0 [facility] Comment on above: Performed By: #### H FPF #### [facility] [address] [place] [address] Dr. Landen Mcrae Albumin/Globulin [Mass ratio] 1.4 {ratio} Normal [facility] Comment on above: Performed By: #### H FPF #### [facility] [address] [place] [address] Dr. Landen Mcrae ALP [Catalytic activity/Vol] 83 U/L Normal 46-116 [facility] Comment on above: Performed By: #### H FPF #### [facility] [address] [place] [address] Dr. Landen Mcrae ALT [Catalytic activity/Vol] 19 U/L Normal 14-59 [facility] Comment on above: Performed By: #### H FPF #### [facility] [address] [place] [address] Dr. Landen Mcrae AST [Catalytic activity/Vol] 15 U/L Normal 15-37 [facility] Comment on above: Performed By: #### H FPF #### [facility] [address] [place] [address] Dr. Landen Mcrae Bilirubin [Mass/Vol] 0.5 mg/dL Normal 0.2-1.0 [facility] Comment on above: Performed By: #### H FPF #### [facility] [address] [place] [address] Dr. Landen Mcrae Calcium [Mass/Vol] 8.9 mg/dL Normal 8.5-10.1 [facility] Comment on above: Performed By: #### H FPF #### [facility] [address] [address] [address] Landen Mcrae Chloride [Moles/Vol] 103 mmol/L Normal 98-107 [facility] Comment on above: Performed By: #### H FPF #### [facility] [address] [address] [address] Landen Mcrae CHOL-HDL RATIO NORM SEE BELOW Normal [facility] Comment on above: Result Comment: 3.3 - 4.4 LOW RISK 4.4 - 7.1 AVERAGE RISK 7.1 - 11.0 MODERATE RISK >11.0 HIGH RISK Performed By: #### H FPF #### [facility] [address] [place] [address] Dr. Landen Mcrae Cholesterol [Mass/Vol] 161 mg/dL Normal <=200 [facility] Comment on above: Performed By: #### H FPF #### [facility] [address] [place] [address] Dr. Landen Mcrae Cholesterol in HDL [Mass/Vol] 57 mg/dL Normal 40-60 [facility] Comment on above: Performed By: #### H FPF #### [facility] [address] [place] [address] Dr. Landen Mcrae Cholesterol in LDL [Mass/Vol] 88.0 mg/dL Normal [facility] Comment on above: Performed By: #### H FPF #### [facility] [address] [address] [address] Landen Mcrae Cholesterol.total/C holesterol in HDL [Mass ratio] 2.8 {ratio} Normal [facility] Comment on above: Performed By: #### H FPF #### [facility] [address] [address] [address] Landen Mcrae CO2 [Moles/Vol] 27.1 mmol/L Normal 21.0-32.0 [facility] Comment on above: Performed By: #### H FPF #### [facility] [address] [address] [address] Landen Mcrae Creatinine [Mass/Vol] 0.58 mg/dL Normal 0.55-1.02 [facility] Comment on above: Performed By: #### H FPF #### [facility] [address] [address] [address] Landen Mcrae Globulin (S) [Mass/Vol] 2.8 g/dL Normal [facility] Comment on above: Performed By: #### H FPF #### [facility] [address] [address] [address] Landen Mcrae Glucose [Mass/Vol] 88 mg/dL Normal 74-106 [facility] Comment on above: Performed By: #### H FPF #### [facility] [address] [address] [address] Landen Mcrae HDL NORMAL > or = 60 mg/dl - LO W CARDIOVASCULAR RISK <40 mg/dl - HIGH CARDIOVASCULAR RISK Normal [facility] Comment on above: Performed By: #### H FPF #### [facility] [address] [address] [address] Landen Mcrae LDL CALC NORMAL SEE BELOW Normal [facility] Comment on above: Result Comment: <100 mg/dl OPTIMAL 100 - 129 mg/dl NEAR OR ABOVE OPTIMAL 130 - 159 mg/dl BORDERLINE HIGH 160 - 189 mg/dl HIGH >190 mg/dl VERY HIGH Performed By: #### H FPF #### [facility] [address] [address] [address] Landen Mcrae Potassium [Moles/Vol] 3.8 mmol/L Normal 3.5-5.1 [facility] Comment on above: Performed By: #### H FPF #### [facility] [address] [address] [address] Landen Mcrae Protein [Mass/Vol] 6.6 g/dL Normal 6.4-8.2 [facility] Comment on above: Performed By: #### H FPF #### [facility] [address] [address] [address] Landen Mcrae Sodium [Moles/Vol] 140 mmol/L Normal 136-145 [facility] Comment on above: Performed By: #### H FPF #### [facility] [address] [address] [address] Landen Mcrae Triglyceride [Mass/Vol] 80 mg/dL Normal <=150 [facility] Comment on above: Performed By: #### H FPF #### [facility] [address] [address] [address] Landen Mcrae TSH 1.159 uIU/mL Normal 0.358-3.740 [facility] Comment on above: Performed By: #### H FPF #### [facility] [address] [address] [address] Landen Mcrae Urea nitrogen [Mass/Vol] 19.0 mg/dL Critically high 7.0-18.0 [facility] Comment on above: Performed By: #### H FPF #### [facility] [address] [address] [address] Landen Mcrae Urea nitrogen/Creatinine [Mass ratio] 32.8 mg/mg Normal [facility] Comment on above: Performed By: #### H FPF #### [facility] [address] [address] [address] Landen Mcrae VLDL CALC 16.0 mg/dL Normal [facility] Comment on above: Performed By: #### H FPF #### [facility] [address] [address] [address] Landen Mcrae CBC COMPLETE BLOOD COUNTon 01-04-2019 Erythrocyte distribution width (RBC) [Ratio] 12.7 % Normal 11.5-15.0 [facility] Comment on above: Order Comment: No: D o not add to previous draw Performed By: #### 0 [id number] #### [facility] [address] [place] [address], [facility] Hematocrit (Bld) [Volume fraction] 36.4 % Normal 36.0-45.0 [facility] Comment on above: Order Comment: No: D o not add to previous draw Performed By: #### 0 0071 #### [facility] [address] [place] [address], [place] Hemoglobin (Bld) [Mass/Vol] 12.0 g/dL Normal 12.0-15.0 [facility] Comment on above: Order Comment: No: D o not add to previous draw Performed By: #### 0 [id number] #### [facility] [address] [place] [id number], [facility] MCH (RBC) [Entitic mass] 29.3 pg Normal 27.0-33.0 [facility] Comment on above: Order Comment: No: D o not add to previous draw Performed By: #### 0 0071 #### [facility] [address] [place] [address], [facility] MCHC (RBC) [Mass/Vol] 33.0 g/dL Normal 32.0-35.0 [facility] Comment on above: Order Comment: No: D o not add to previous draw Performed By: #### 0 0071 #### [facility] [address] [place] [address], [facility] MCV (RBC) [Entitic vol] 89.0 fL Normal 82.0-98.0 [facility] Comment on above: Order Comment: No: D o not add to previous draw Performed By: #### 0 0071 #### [facility] [address] [facility] [place] [address], [facility] Nucleated RBC/100 WBC (Bld) [Ratio] 0 % Normal 0-0 [facility] Comment on above: Order Comment: No: D o not add to previous draw Performed By: #### 0 [id number] #### [facility] [address] [facility] [place] [address], [facility] PLAT CNT 242 10*3/uL Normal 150-400 [facility] Comment on above: Order Comment: No: D o not add to previous draw Performed By: #### 0 0071 #### [facility] [address] [place] [id number], [facility] RBC (Bld) [#/Vol] 4.09 10*6/uL Normal 3.80-5.00 [facility] Comment on above: Order Comment: No: D o not add to previous draw Performed By: #### 0 0071 #### [facility] [address] WBC (Bld) [#/Vol] 8.63 10*3/uL Normal 4.00-10.60 [facility] Comment on above: Order Comment: No: D o not add to previous draw Performed By: #### 0 0071 #### [facility] [address] [facility] Cardiovascular Lab Reporton 11-03-2019 Cardiovascular Lab Report [facility] MR #: [id number] Department of Physician: [facility] Patt Landrum M.D. Division of Service Date: 11/02/2019 Cardiology Birthdate: 1970 Adult Cardiovascular Room #: [id number] [facility] [address] [address] Cardiovascular Laboratory Report INDICATION: The patient is a 48-year-old woman with a history of hypertension, paroxysmal atrial fibrillation, and transient ischemic attack. Her CHADS-VASc score is 4. She could not tolerate anticoagulation due to recurrent bleeding and hematuria. She has stopped the anticoagulation therapy. She had a shared care decision making with her mail opener, Dr. Ian Bruce and they both agreed that she should undergo the Watchman left atrial appendage closure procedure as an alternative to long-term anticoagulation. Because of that she is presenting today for that procedure. PROCEDURES: 1. Access into the right femoral vein under ultrasound guidance. 2. Preclosure in the right femoral vein. 3. Transseptal puncture under echocardiographic and fluoroscopic guidance. 4. Left atrial appendage angiogram. 5. Successful closure of the left atrial appendage using a Watchman 24 mm device. 6. Transesophageal echocardiography performed by Dr. Randal Meza for guidance of structural heart procedure. Please refer to her dictation for that. METHODS: Procedure was explained to the patient with risks and benefits. She signed an informed consent. She was brought to catheter builder in a fasting state. A transesophageal echocardiogram was performed under conscious sedation. After clearing the appendage from thrombi and doing initial measurement, access was obtained in the right common femoral vein. Using ultrasound guidance and micropuncture technique, a 6-[place] x 11 cm sheath was placed. A preclosure in the right common femoral vein was performed using a 6-[place] ProGlide device. An SL-1 transseptal sheath was advanced to the superior vena cava and using a BRK-1 needle transseptal puncture was performed using echocardiographic and fluoroscopic guidance. The transseptal sheath was advanced in the left atrial cavity and position was confirmed by measurement of left atrial pressure and obtaining saturated blood as well as by echocardiography and fluoroscopy. At this time, we advanced Amplatz Super Stiff J-tipped wire. However, it turned out that the sheath came back to the right atrium. We then readvanced the dilator of the transseptal sheath and we were able to find the recently created trans-septal hole and we advanced the sheath across it to the left atrial cavity. This was followed by advancement of the Amplatz Super Stiff wire to the left superior pulmonary vein. The transseptal sheath was then exchanged to the Watchman 14-[place]izen [place] access sheath single curve. Note that after initial access in the right common femoral vein, 3000 units of heparin were administered and after obtaining transseptal position, full heparinization was given with therapeutic ACT confirmed during the rest of the procedure and additional heparin given as needed. A 6-[place] angled pigtail catheter was advanced into the left atrial appendage. Left atrial appendage angiogram was performed in the right anterior oblique with caudal angulation view. Measurement of the appendage was performed by echocardiography and the maximal width was 20 mm. We decided to proceed with a 24 mm device which was prepped according to standard techniques. The device was advanced to the tip of the delivery sheath, however, the sheath came back. Therefore, we retrieved the device and then we advanced the pigtail catheter to achieve a more distal position in the left atrial appendage. The pigtail was retrieved and the 24 mm Watchman device was then re-advanced and then deployed across the appendage. A TUG test was performed. The left atrial appendage angiogram was performed. Transesophageal echocardiography confirmed adequate device position and adequate seal with a compression ranging from 8% to 19%. The device medium at all the PASS criteria. We decided to release the device. The device was released and maintained stable position at the end of the procedure. Transesophageal echocardiography showed that the device was stable in position. There was no evidence of pericardial effusion. However at the end of the procedure, it was noticed that at the tip of the sheath there was a mobile filament. The sheath was then retrieved from the left atrium to the inferior vena cava and then outside of the body and they previously placed Perclose sutures were tightened achieving partial hemostasis which was then managed with manual compression with good hemostasis. Examination of the access sheath showed that there was a small string attached to the tip of the access sheath and this was probably coming from the tip of the sheath. The tip of the sheath was then sent back to the nursing surgical services director for further examination. The patient tolerated the procedure well. The procedure was performed under conscious sedation. She will be admitted for further management. TOTAL FLUORO TIME: 23.1 minutes. TOTAL AIR KERMA: 382 mGy. TOTAL CONTRAST VOLUME: 15 mL. LEFT ATRIAL PRESSURE: Initially 1 mmHg, following administration of intravenous fluids 6 mmHg and reaching up to 10-12 mmHg with respiration. RECOMMENDATIONS: 1. The patient will be observed overnight after the Watchman procedure. 2. The patient will obtain an echocardiogram the next morning. 3. The patient will continue on aspirin 81 mg daily. 4. Warfarin 10 mg daily today and tomorrow followed by 5 mg daily. 5. Endocarditis prophylaxis for 6 months after Watchman procedure. 6. The patient will be scheduled for 45 day transesophageal echocardiography post Watchman procedure as per protocol. Electronically Signed by: Mario Landrum M.D. 11/16/2019 07:08 P Mario Landrum M.D. Date Dict: 11/02/2019/01:50 P/Mario Landrum M.D. Date Trans: 11/03/2019 03:13 Kayode [id number] cc: Kasey Pop M.D. [address] [id number] Normal [facility] PROTHROMBIN TIMEon 9 INR Coag (PPP) [Relative time] 1.16 {INR} Normal 0.91-1.16 [facility] Comment on above: Order Comment: No: D o not add to previous draw Result Comment: ACCC P RECOMMENDED INR FOR WARFARIN THERAPY ------ ------- CONDITION INR PROPHYLAXIS OF VENOUS THROMBOSIS 2-3 (HIGH-RISK SURGERY) TREATMENT OF VENOUS THROMBOSIS 2-3 TREATMENT OF PULMONARY EMBOLISM 2-3 PREVENTION OF SYSTEMIC EMBOLISM: 2-3 ACUTE MYOCARDIAL INFARCTION TISSUE HEART VALVES VALVULAR HEART DISEASE ATRIAL FIBRILLATION RECURRENT SYSTEMIC EMBOLISM MECHANICAL HEART VALVE 2.5-3.5 FROM: ORAL ANTICOAGULANTS. MECHANISM OF ACTION, CLINICAL EFFECTIVENESS, AND OPTIMAL THERAPEUTIC RANGE. CHEST 1995;108:231S-246S. Performed By: #### 0 [id number] #### [facility] [address] [facility]. [address] PT Coag (PPP) [Time] 14.9 s High 12.3-14.8 [facility] Comment on above: Order Comment: No: D o not add to previous draw Result Comment: ALL RESULTS MUST BE INTERPRETED WITH RESPECT TO BLOOD DRAWING ARTIFACT OR DILUTION ERROR OF ANTICOAGULANT AT THE TIME OF SAMPLING. Performed By: #### 0 [id number] #### [facility] [address] [facility]. [address] BASIC METABOLIC PANELon 10-23 Calcium [Mass/Vol] 9.0 mg/dL Normal 8.6-10.3 [facility] Comment on above: Performed By: #### 0 0071 #### [facility] [address] [place] [address], [place] Chloride [Moles/Vol] 102 mmol/L Normal 98-107 [facility] Comment on above: Performed By: #### 0 0071 #### [facility] [address] [place] [address], [place] CO2 [Moles/Vol] 29 mmol/L Normal 21-31 [facility] Comment on above: Performed By: #### 0 0071 #### [facility] [address] [place] [address], [place] Creatinine [Mass/Vol] 0.61 mg/dL Normal 0.60-1.20 [facility] Comment on above: Performed By: #### 0 0071 #### [facility] [address] [place] [address], [place] GFR/1.73 sq M predicted among blacks MDRD (S/P/Bld) [Vol rate/Area] mL/min/{1.73_m2} Normal >60 [facility] Comment on above: Performed By: #### 0 [id number] #### [facility] [address] [place] [address], [place] GFR/1.73 sq M predicted among non-blacks MDRD (S/P/Bld) [Vol rate/Area] mL/min/{1.73_m2} Normal >60 [facility] Comment on above: Performed By: #### 0 [id number] #### [facility] [address] [place] [address], [place] Glucose [Mass/Vol] 97 mg/dL Normal 70-100 [facility] Comment on above: Performed By: #### 0 [id number] #### [facility] [address] [place] [address], [place] Potassium [Moles/Vol] 3.2 mmol/L Low 3.5-5.1 [facility] Comment on above: Performed By: #### 0 0071 #### [facility] [address] [place] [address], [facility] Sodium [Moles/Vol] 139 mmol/L Normal 136-145 [facility] Comment on above: Performed By: #### 0 [id number] #### [facility] [address] [place] [address], [facility] Urea nitrogen [Mass/Vol] 16 mg/dL Normal 7-25 [facility] Comment on above: Performed By: #### 0 1 #### [facility] [address] [place] [address], [facility] CBC COMPLETE BLOOD COUNTon 01-03-2019 Erythrocyte distribution width (RBC) [Ratio] 12.4 % Normal 11.5-15.0 [facility] Comment on above: Performed By: #### [id number] #### [facility] [address] [place] [address], [facility] Hematocrit (Bld) [Volume fraction] 47.3 % High 36.0-45.0 [facility] Comment on above: Performed By: #### [id number] #### [facility] [address] [facility] [place] [id number], [facility] Hemoglobin (Bld) [Mass/Vol] 15.7 g/dL High 12.0-15.0 [facility] Comment on above: Performed By: #### 5 [id number] #### [facility] [address] [place] [id number], [facility] MCH (RBC) [Entitic mass] 28.9 pg Normal 27.0-33.0 [facility] Comment on above: Performed By: #### 5 [id number] #### [facility] [address] [place] [id number], [facility] MCHC (RBC) [Mass/Vol] 33.2 g/dL Normal 32.0-35.0 [facility] Comment on above: Performed By: #### 5 [id number] #### [facility] [address] [place] [address], [facility] MCV (RBC) [Entitic vol] 87.1 fL Normal 82.0-98.0 [facility] Comment on above: Performed By: #### 5 [id number] #### [facility] [address] [place] [address], [facility] Nucleated RBC/100 WBC (Bld) [Ratio] 0 % Normal 0-0 [facility] Comment on above: Performed By: #### 5 [id number] #### [facility] [address] [place] [address], [facility] PLAT CNT 359 10*3/uL Normal 150-400 The [facility] Comment on above: Performed By: #### 5 [id number] #### [facility] [address] [place] [address], [facility] RBC (Bld) [#/Vol] 5.43 10*6/uL High 3.80-5.00 [facility] Comment on above: Performed By: #### 5 [id number] #### [facility] [address] [place] [address], [facility] WBC (Bld) [#/Vol] 12.09 10*3/uL High 4.00-10.60 [facility] Comment on above: Performed By: #### 5 [id number] #### [facility] [address] PROTHROMBIN TIMEon 9 INR Coag (PPP) [Relative time] 1.17 {INR} High 0.91-1.16 [facility] Comment on above: Order Comment: No: D o not add to previous draw Result Comment: ACCC P RECOMMENDED INR FOR WARFARIN THERAPY ------ ------- CONDITION INR PROPHYLAXIS OF VENOUS THROMBOSIS 2-3 (HIGH-RISK SURGERY) TREATMENT OF VENOUS THROMBOSIS 2-3 TREATMENT OF PULMONARY EMBOLISM 2-3 PREVENTION OF SYSTEMIC EMBOLISM: 2-3 ACUTE MYOCARDIAL INFARCTION TISSUE HEART VALVES VALVULAR HEART DISEASE ATRIAL FIBRILLATION RECURRENT SYSTEMIC EMBOLISM MECHANICAL HEART VALVE 2.5-3.5 FROM: ORAL ANTICOAGULANTS. MECHANISM OF ACTION, CLINICAL EFFECTIVENESS, AND OPTIMAL THERAPEUTIC RANGE. CHEST 1995;108:231S-246S. Performed By: #### 5 [id number] #### [facility] [employer] [address] PT Coag (PPP) [Time] 15.0 s High 12.3-14.8 [facility] Comment on above: Order Comment: No: D o not add to previous draw Result Comment: ALL RESULTS MUST BE INTERPRETED WITH RESPECT TO BLOOD DRAWING ARTIFACT OR DILUTION ERROR OF ANTICOAGULANT AT THE TIME OF SAMPLING. Performed By: #### 5 [id number] #### [facility] [employer] [address] *MRSA/MSSA DNA NASALon 06-17 *MRSA/MSSA DNA NASAL Clinical Report: (D) Specimen: NASAL SWAB Collected: 06/17/2019 11:45 Status: Final Last Updated: 06/17/2019 18:47 MSSA DNA (Final) Negative MRSA DNA (Final) Methicillin Resistant Staphylococcus aureus DNA Detected Normal The [facility] Comment on above: Performed By: #### 3 1595 #### [facility] [address] APTTon 06-17-2019 aPTT Coag (Bld) [Time] 30.5 s Normal 25.0-35.0 [facility] Comment on above: Result Comment: ALL RESULTS MUST BE INTERPRETED WITH RESPECT TO BLOOD DRAWING ARTIFACT OR DILUTION ERROR OF ANTICOAGULANT AT THE TIME OF SAMPLING. THE APTT SHOULD NOT BE USED TO MONITOR UNFRACTIONATED HEPARIN THERAPY, THIS LABORATORY NO LONGER HAS AN ESTABLISHED THERAPEUTIC RANGE BASED ON THE APTT. IT IS RECOMMENDED THAT THE UFH - HEPARIN ASSAY (ANTI-XA ACTIVITY) BE USED FOR THIS PURPOSE. Performed By: #### 5 [id number], [id number] #### [facility] [address] [place] [address], [facility] BASIC METABOLIC PANELon 07-2 Calcium [Mass/Vol] 9.4 mg/dL Normal 8.6-10.3 [facility] Comment on above: Performed By: #### 0 0071 #### [facility] [address] [facility] [place] [address], [facility] Chloride [Moles/Vol] 102 mmol/L Normal 98-107 [facility] Comment on above: Performed By: #### 0 0071 #### [facility] [address] [facility] [place] [place] [address], [facility] CO2 [Moles/Vol] 28 mmol/L Normal 21-31 [facility] Comment on above: Performed By: #### 0 0071 #### [facility] [address] [facility] [place] [address], [facility] Creatinine [Mass/Vol] 0.56 mg/dL Low 0.60-1.20 [facility] Comment on above: Performed By: #### 0 0071 #### [facility] [address] [facility] [place] [address], [facility] GFR/1.73 sq M predicted among blacks MDRD (S/P/Bld) [Vol rate/Area] mL/min/{1.73_m2} Normal >60 The [facility] Comment on above: Performed By: #### 0 0071 #### [facility] [address] [place] [address], [facility] GFR/1.73 sq M predicted among non-blacks MDRD (S/P/Bld) [Vol rate/Area] mL/min/{1.73_m2} Normal >60 [facility] Comment on above: Performed By: #### 0 0071 #### [facility] [address] [place] [address], [facility] Glucose [Mass/Vol] 93 mg/dL Normal 70-100 The [facility] Comment on above: Performed By: #### 0 0071 #### [facility] [address] [place] [address], [facility] Potassium [Moles/Vol] 3.3 mmol/L Low 3.5-5.1 The [facility] Comment on above: Performed By: #### 0 0071 #### [facility] [address] [place] [address], [place] Sodium [Moles/Vol] 139 mmol/L Normal 136-145 The [facility] Comment on above: Performed By: #### 0 0071 #### [facility] [address] [place] [address], [facility] Urea nitrogen [Mass/Vol] 17 mg/dL Normal 7-25 [facility] Comment on above: Performed By: #### 0 0071 #### [facility] [address] [place] [address], [facility] CBC COMPLETE BLOOD COUNTon 0 06-17-2019 Erythrocyte distribution width (RBC) [Ratio] 12.7 % Normal 11.5-15.0 [facility] Comment on above: Performed By: #### 5 0608 #### [facility] [address] [place] [address], [facility] Hematocrit (Bld) [Volume fraction] 45.3 % High 36.0-45.0 [facility] Comment on above: Performed By: #### 5 0608 #### [facility] [address] [place] [address], [place] Hemoglobin (Bld) [Mass/Vol] 15.4 g/dL High 12.0-15.0 [facility] Comment on above: Performed By: #### 5 0608 #### [facility] [address] [place] [address], [facility] MCH (RBC) [Entitic mass] 29.1 pg Normal 27.0-33.0 [facility] Comment on above: Performed By: #### 5 0608 #### [facility] [address] [place] [address], [facility] MCHC (RBC) [Mass/Vol] 34.0 g/dL Normal 32.0-35.0 [facility] Comment on above: Performed By: #### 5 0608 #### [facility] [address] [place] [address], [facility] MCV (RBC) [Entitic vol] 85.5 fL Normal 82.0-98.0 [facility] Comment on above: Performed By: #### 5 0608 #### [facility] [address] [facility] [place] [address], [facility] Nucleated RBC/100 WBC (Bld) [Ratio] 0 % Normal 0-0 [facility] Comment on above: Performed By: #### 5 0608 #### [facility] [address] [place] [address], [facility] PLAT CNT 417 10*3/uL High 150-400 The [facility] Comment on above: Performed By: #### 5 0608 #### [facility] [address] [place] [address], [facility] RBC (Bld) [#/Vol] 5.30 10*6/uL High 3.80-5.00 The [facility] Comment on above: Performed By: #### 5 0608 #### [facility] [address] [place] [id number], [facility] WBC (Bld) [#/Vol] 10.62 10*3/uL High 4.00-10.60 [facility] Comment on above: Performed By: #### 5 0608 #### [address] CHEST AND LATERALon 06-17-20 CHEST AND LATERAL [facility] Department of Radiology [address] [place] [id number] Patient Name: DEEDEE STANLEY : 1970 Sex: F Age: Race: White Pt. Location: OUTP Patient Status: O Ordered Date: 06/17/2019 12:10:00 PM Completed Date: 06/17/2019 12:15 PM Requesting Provider: NITA CHIANG Attending Provider: NITA CHIANG Report Copy To: Signs & Symptoms: Pre-op for Watchman Device eval History: Comments: H/O atrial fibrillation Exam: CHEST AND LATERAL CHEST AND LATERAL 06/17/2019 12:15 PM EDT SIGNS AND SYMPTOMS: Pre-op for Watchman Device eval TECHNOLOGIST COMMENTS: Pre-op for Watchman Device eval QUESTION FOR THE RADIOLOGIST: H/O atrial fibrillation PROTOCOL: AP(PA) and Lateral views were obtained. 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 There is no pneumothorax. The lungs are free of infiltrates. There are no pleural effusions. The cardiomediastinal silhouette is unremarkable. IMPRESSION: No acute cardiopulmonary process. Approved by:Rashid Knapp on 06/17/2019 1:38 PM EDT. I, Madhav Harley, have reviewed the images and report and concur with these findings. Electronically signed by:Madhav Harley. Transcribed by: [email or web address], User Resident: RASHID KNAPP Electronically Signed by: MADHAV HARLEY @ 06/17/2019 04:12 PM I personally read this/these film(s) with this resident Normal The [facility] Comment on above: Order Comment: H/O a trial fibrillation PROTHROMBIN TIMEon 9 INR Coag (PPP) [Relative time] 0.97 {INR} Normal 0.91-1.16 The [facility] Comment on above: Result Comment: ACCC P RECOMMENDED INR FOR WARFARIN THERAPY ------ ------- CONDITION INR PROPHYLAXIS OF VENOUS THROMBOSIS 2-3 (HIGH-RISK SURGERY) TREATMENT OF VENOUS THROMBOSIS 2-3 TREATMENT OF PULMONARY EMBOLISM 2-3 PREVENTION OF SYSTEMIC EMBOLISM: 2-3 ACUTE MYOCARDIAL INFARCTION TISSUE HEART VALVES VALVULAR HEART DISEASE ATRIAL FIBRILLATION RECURRENT SYSTEMIC EMBOLISM MECHANICAL HEART VALVE 2.5-3.5 FROM: ORAL ANTICOAGULANTS. MECHANISM OF ACTION, CLINICAL EFFECTIVENESS, AND OPTIMAL THERAPEUTIC RANGE. CHEST 1995;108:231S-246S. Performed By: #### 5 [id number], [id number] #### [facility] [address] PT Coag (PPP) [Time] 12.9 s Normal 12.3-14.8 The [facility] Comment on above: Result Comment: ALL RESULTS MUST BE INTERPRETED WITH RESPECT TO BLOOD DRAWING ARTIFACT OR DILUTION ERROR OF ANTICOAGULANT AT THE TIME OF SAMPLING. Performed By: #### 5 [id number], [id number] #### [facility] [address] [place] [address], [place] TYPE AND SCREENon 06-17-2019 ABO INTERPRETATION A Normal [facility] Comment on above: Performed By: #### 6 2586 #### [facility] [address] [place] [address], [place] RH INTERPRETATION Positive Normal [facility] Comment on above: Performed By: #### 6 2586 #### [facility] [address] [place] [address], [place] Basic Metabolic Panelon 04-0 Calcium mass conc 9.4 mg/dL Normal 8.2-10.2 [facility] Comment on above: Performed By: #### C BC, PT, PTT, BMP #### [facility] [address] Chloride molar conc 101 mmol/L Normal 95-114 [facility] Comment on above: Performed By: #### C BC, PT, PTT, BMP #### [facility] [address] CO2 molar conc 24.1 mmol/L Normal 22.0-30.0 [facility] Comment on above: Performed By: #### C BC, PT, PTT, BMP #### [facility] [address] Creatinine mass conc 0.60 mg/dL Normal 0.44-1.03 [facility] Comment on above: Performed By: #### C BC, PT, PTT, BMP #### [facility] [address] [place] [address] [place] Creatinine mass conc 90.8558260523 mg/dL Normal [facility] Comment on above: Result Comment: PERF ORMED BY: [place] [address] [facility] [employer] [employer] ARELIS MONTEMAYOR M.D. Performed By: #### C BC, PT, PTT, BMP #### [facility] [address] [place] [address] [place] Estimated GFR ( Mehreen > 60 Normal [facility] Comment on above: Result Comment: GFR estimated reference range: According to KDOQI guidelines, <60 ml/min/1.73m2 is sufficient to diagnose a patient with chronic kidney disease. Performed By: #### C BC, PT, PTT, BMP #### [facility] [address] Estimated GFR (Non- Am > 60 Normal [facility] Comment on above: Performed By: #### C BC, PT, PTT, BMP #### [facility] [address] [place] [address] [place] Glucose mass conc 116 mg/dL High 70-100 [facility] Comment on above: Result Comment: [place] om Glucose Reference Range is dependent on time and content of last meal. Glucose of more than 200 mg/dL in a nonstressed, ambulatory subject supports the diagnosis of Diabetes Mellitus. ADA recommended reference range Performed By: #### C BC, PT, PTT, BMP #### [facility] [address] Potassium molar conc 3.5 mmol/L Normal 3.5-5.1 [facility] Comment on above: Performed By: #### C BC, PT, PTT, BMP #### [facility] [address] Sodium molar conc 137 mmol/L Normal 136-146 [facility] Comment on above: Performed By: #### C BC, PT, PTT, BMP #### [facility] [address] [place] [address] [place] Urea nitrogen mass conc 19 mg/dL Normal 9-23 [facility] Comment on above: Performed By: #### C BC, PT, PTT, BMP #### [facility] [address] [place] [address] abdomen pelvis wo conon 0 02-22-2019 CT abdomen pelvis wo con [facility] [place] [address] [place] [address] CT Scan Report Signed Patient: Todd Stanley MR#: [id number] : 1970 Acct:[id number] Age/Sex: 48 / F ADM Date: 02/22/19 Loc: ER Room: Type: [facility] ER Attending Dr: Ordering Provider: Rashid Pruitt DO Date of Service: 02/22/19 CT/CT abdomen pelvis wo con: Urogenital-Female Copies to: EdmondRashid DO CT ABDOMEN AND PELVIS WITHOUT CONTRAST COMPARISON: 11/26/2018 CLINICAL DATA: Dark urine for the past week and now gross hematuria. Painful urination. History of kidney stones. Spiral images were obtained through the abdomen and pelvis without contrast. This CT exam was performed using one or more following dose reduction techniques: Automated exposure control, adjustment of the mA and/or kV according to patient size, or use of iterative reconstruction technique. Limited cuts through the lung bases show minimal scarring or atelectasis. Evaluation of the intraabdominal organs is slightly limited without enhancement. No intrahepatic masses are identified. There are no calcified gallstones however gallbladder sludge is not excluded. The spleen, pancreas and adrenal glands are unremarkable. There are multiple small bilateral renal calculi. There is also a larger stone at the renal pelvis on the right toward the ureteropelvic junction which measures 7 mm. No hydronephrosis is seen. There is no ureteral dilatation or stones. The abdominal aorta is normal caliber and there is mild atherosclerotic plaque. There are a few tiny abdominal lymph nodes. No ascites is seen. There is an umbilical hernia containing fat. No small bowel dilatation is noted. Stool is present along the colon. A sclerotic area at the T10 vertebral body was seen previously. Images through the pelvis show normal caliber small bowel loops. There is additional moderate colonic stool. No diverticular disease is noted. The appendix is unremarkable. The uterus appears to be surgically absent. There is a left ovarian cyst measuring 2.5 cm. A smaller follicle is seen on the right. The urinary bladder shows no obvious abnormalities for the degree of distention. There are tiny inguinal lymph nodes. No free fluid is noted. CT/CT abdomen pelvis wo con IMPRESSION: BILATERAL NEPHROLITHIASIS WITH A LARGER STONE IN THE RIGHT RENAL PELVIS TOWARD THE URETEROPELVIC JUNCTION. NO OBSTRUCTIVE UROPATHY. INCOMPLETE BLADDER DISTENTION, LIMITING FULL ASSESSMENT. MODERATE COLONIC STOOL. 2.5 CM LEFT OVARIAN CYST. Impression dictated by: Nicole Freedman M.D.02/22/2019 3:21 PM Dictation Location: [facility] Transcribed By: [facility] 02/22/19 1521 Dictated By: Nicole Freedman MD 02/22/19 1514 Signed By: 02/22/19 1521 Normal [facility] Complete Blood Count Auto Di ffon 02-22-2019 Basophils #/vol (Bld) 0.1 10*3/uL Normal 0.0-0.2 [facility] Comment on above: Result Comment: PERF ORMED BY: [place] [address] [facility] [employer] ARELIS MONTEMAYOR M.D. Performed By: #### C BC, PT, PTT, BMP #### [address] Basophils/100 WBC (Bld) 0.8 % Normal . [facility] Comment on above: Performed By: #### C BC, PT, PTT, BMP #### [facility] [address] [place] [address] Eosinophils #/vol (Bld) 0.2 10*3/uL Normal 0.0-0.45 [facility] Comment on above: Performed By: #### C BC, PT, PTT, BMP #### [address] Eosinophils/100 WBC (Bld) 2.1 % Normal . [facility] Comment on above: Performed By: #### C BC, PT, PTT, BMP #### [address] Erythrocyte distribution width Ratio (RBC) 13.9 % Normal 11.9-15.3 [facility] Comment on above: Performed By: #### C BC, PT, PTT, BMP #### [facility] [address] [place] [address] Hematocrit Volume Fraction (Bld) 39.6 % Normal 34.0-46.4 [facility] Comment on above: Performed By: #### C BC, PT, PTT, BMP #### [address] Hemoglobin mass conc (Bld) 13.2 g/dL Normal 11.8-15.4 [facility] Comment on above: Performed By: #### C BC, PT, PTT, BMP #### [address] Lymphocytes #/vol (Bld) 1.3 10*3/uL Normal 1.00-4.8 [facility] Comment on above: Performed By: #### C BC, PT, PTT, BMP #### [address] Lymphocytes/100 WBC (Bld) 11.5 % Normal . [facility] Comment on above: Performed By: #### C BC, PT, PTT, BMP #### [address] MCH Entitic mass (RBC) 28.5 pg Normal 24.7-34.3 [facility] Comment on above: Performed By: #### C BC, PT, PTT, BMP #### [address] MCH Entitic mass (RBC) 33.3 g/dL Normal 32.0-35.0 [facility] Comment on above: Performed By: #### C BC, PT, PTT, BMP #### [address] MCV Entitic volume (RBC) 85.6 fL Normal 80-100 [facility] Comment on above: Performed By: #### C BC, PT, PTT, BMP #### [facility] [address] [place] [address] Monocytes #/vol (Bld) 0.8 10*3/uL Normal 0.0-0.8 [facility] Comment on above: Performed By: #### C BC, PT, PTT, BMP #### [address] Monocytes/100 WBC (Bld) 7.0 % Normal . [facility] Comment on above: Performed By: #### C BC, PT, PTT, BMP #### [facility] [address] Neutrophils #/vol (Bld) 9.1 10*3/uL High 1.8-7.7 [facility] Comment on above: Performed By: #### C BC, PT, PTT, BMP #### [facility] [address] [place] [address] Neutrophils/100 WBC (Bld) 78.6 % Normal . [facility] Comment on above: Performed By: #### C BC, PT, PTT, BMP #### [facility] [address] [place] [address] Nucleated RBC/100 WBC Ratio (Bld) 0.0 % Normal 0-0.5 [facility] Comment on above: Performed By: #### C BC, PT, PTT, BMP #### [address] Platelet mean volume Entitic volume (Bld) 8.3 fL Normal 6.3-10.7 [facility] Comment on above: Performed By: #### C BC, PT, PTT, BMP #### [facility] [address] [place] [address] Platelets #/vol (Bld) 319 10*3/uL Normal 150-450 [facility] Comment on above: Performed By: #### C BC, PT, PTT, BMP #### [facility] [address] [place] [address] RBC #/vol (Bld) 4.62 10*6/uL Normal 3.60-5.00 [facility] Comment on above: Performed By: #### C BC, PT, PTT, BMP #### [facility] [address] [place] [address] [place] WBC #/vol (Bld) 11.6 10*3/uL High 4.5-11.0 [facility] Comment on above: Performed By: #### C BC, PT, PTT, BMP #### [place] [address] [place] Dipstick and Microscopicon 0 02-22-2019 Appearance Nom (U) Turbid Critically abnormal Clear [facility] Comment on above: Order Comment: Name Collection Type: Clean-Voided Midstream Performed By: #### A DDMELANIAUAPLUS, CUU #### [facility] [address] [place] [address] Bacteria LM.HPF #/area (Urine sed) 1+ High None Seen [facility] Comment on above: Order Comment: Name Collection Type: Clean-Voided Midstream Result Comment: PERF ORMED BY: [place] [address] [facility] [employer] ARELIS MONTEMAYOR M.D. Performed By: #### A DDMELANIAUAPLUS, CUU #### [place] [address] [place] Bilirubin,Urine 2+ High Negative [facility] Comment on above: Order Comment: Name Collection Type: Clean-Voided Midstream Performed By: #### A DDMELANIAUAPLUS, CUU #### [address] Color Nom (U) Red Critically abnormal Yellow [facility] Comment on above: Order Comment: Name Collection Type: Clean-Voided Midstream Performed By: #### A DDONUAPLUS, CUU #### [address] Glucose Ql (U) 100 mg/dL High Normal [facility] Comment on above: Order Comment: Name Collection Type: Clean-Voided Midstream Performed By: #### A DDONUAPLUS, CUU #### [place] [address] [place] Ketones Ql (U) 1+ High Negative [facility] Comment on above: Order Comment: Name Collection Type: Clean-Voided Midstream Performed By: #### A DDONUAPLUS, CUU #### [place] [address] [place] Leukocyte esterase Test strip Ql (U) 3+ High Negative [facility] Comment on above: Order Comment: Name Collection Type: Clean-Voided Midstream Performed By: #### A DDONUAPLUS, CUU #### [facility] [address] [place] [address] [place] Nitrite,Urine Positive High Negative [facility] Comment on above: Order Comment: Name Collection Type: Clean-Voided Midstream Performed By: #### A DDONUAPLUS, CUU #### [address] Occult Blood,Urine 3+ High Negative [facility] Comment on above: Order Comment: Name Collection Type: Clean-Voided Midstream Result Comment: PERF ORMED BY: [place] [address] [facility] [employer] [employer] ARELIS MONTEMAYOR M.D. Performed By: #### A DDONUAPLUS, CUU #### [address] pH (U) 6.5 [pH] Normal 5.0-9.0 [facility] Comment on above: Order Comment: Name Collection Type: Clean-Voided Midstream Performed By: #### A DDONUAPLUS, CUU #### [place] [address] [place] Protein mass conc (U) mg/dL High Negative [facility] Comment on above: Order Comment: Name Collection Type: Clean-Voided Midstream Performed By: #### A DDONUAPLUS, CUU #### [place] [address] [place] RBC LM.HPF #/area (Urine sed) Innumerable High 0-4 [facility] Comment on above: Order Comment: Name Collection Type: Clean-Voided Midstream Performed By: #### A DDONUAPLUS, CUU #### [place] [address] [place] Specificy [place],Urine 1.025 Normal 1.001-1.030 [facility] Comment on above: Order Comment: Name Collection Type: Clean-Voided Midstream Performed By: #### A DDONUAPLUS, CUU #### [place] [address] [place] Squamous Epithelial Cell,Urine 3-4 High 0-2 [facility] Comment on above: Order Comment: Name Collection Type: Clean-Voided Midstream Performed By: #### A DDONUAPLUS, CUU #### [address] Urobilinogen,Urine >=2 High Normal [facility] Comment on above: Order Comment: Name Collection Type: Clean-Voided Midstream Performed By: #### A DDONUAPLUS, CUU #### [address] WBC LM.HPF #/area (Urine sed) 10-19 High 0-4 [facility] Comment on above: Order Comment: Name Collection Type: Clean-Voided Midstream Performed By: #### A DDONUAPLUS, CUU #### [address] Partial Thromboplastin Timeo n 02-22-2019 aPTT Coag time (Bld) 34.2 s Normal 23.0-35.0 [facility] Comment on above: Result Comment: PERF ORMED BY: [place] [address] PATH[facility] ARELIS MONTEMAYOR M.D. Performed By: #### C BC, PT, PTT, BMP #### [address] Prothrombin Time INRon 02-22 INR Coag RelTime (PPP) 1.2 {INR} Normal [facility] Comment on above: Result Comment: INR Therapeutic Range A) Pre- and Peroperative OAT started two weeks before surgery. NOT HIP SURGERY: 1.5 - 2.5 HIP SURGERY: 2 - 3 B) Primary and secondary prevention of venous THROMBOSIS: 2 - 3 C) Active venous thrombosis, pulmonary embolism and prevention of recurrent venous thrombosis: 2 - 3 D) Prevention of arterial thromboembolism including patients with mechanical heart valves: 3 - 4.5 Performed By: #### C BC, PT, PTT, BMP #### [address] Prothrombin time (PT) Coag time (PPP) 14.3 s High 9.0-12.9 [facility] Comment on above: Performed By: #### C BC, PT, PTT, BMP #### [facility] [address] [place] [address] [place] Urine Cultureon 02-22-2019 Bacteria identified Cx Nom (U) No Growth 2 Days PERFORMED BY: [place] [address] PATH[facility] [employer] ARELIS MONTEMAYOR M.D. Normal [facility] Comment on above: Performed By: #### A DDONUAPLUS, CUU #### [facility] [address] [id number] [facility] Vital Signs Date Time Vital Sign Value Performing Clinician Facility 09-08-2021 13:05-0400 Body height 157.48 cm Monica Kelleymond Other [employer] Other 09-08-2021 13:05-0400 Body mass index (BMI) [Ratio] 24.32 kg/m2 Monica Kelleymond Other [employer] Other 09-08-2021 13:05-0400 Body temperature 97.1 [degF] Monica Radha Other [employer] Other 09-08-2021 13:05-0400 Body weight 60.33 kg Monica Radha Other [employer] Other 09-08-2021 13:05-0400 Diastolic blood pressure 94 mm[Hg] Monica Kelleymond Other [employer] Other 09-08-2021 13:05-0400 Respiratory rate 18 /min Monica Radha Other [employer] Other 09-08-2021 13:05-0400 SaO2% (BldA) [Mass fraction] 100 % Monica Garcia Other [facility] [employer] Other 09-08-2021 13:0400 Systolic blood pressure 144 mm[Hg] Monica Garcia Other [facility] Other Encounters Encounter Date Encounter Type Care Provider Facility Start: 07-12-2024 End: 07-12-20[facility] Start: 06-09-2024 amb[facility] Start: 06-09-2024 End: 06-09-2024 ambulatory [facility] Start: 06-02-2024 End: 06-02-2024 ambulatory [facility] Start: 05-24-2024 ambulatory [facility] Start: 05-12-2024 End: 05-12-2024 ambulatory STANLEY [facility] Start: 05-10-2024 End: 05-10-2024 ambulatory [facility] Start: 12-24-2023 End: 12-25-2023 ambulatory Alexandria Fernandez Facility:[facility] Start: 12-24-2023 End: 12-24-2023 Patient encounter procedure Alexandria Fernandez [facility] Start: 04-02-2023 End: 04-03-2023 ambulatory CLEMENT PEREZ Facility: Start: 07-20-[address] AUNG Cardozo Facility: Start: 07-10-2022 End: 07-11-[address] KASEY POP . Facility: Start: 09-08-2021 Office outpatient vi sit 15 minutes Monica Garcia [facility] Start: 11-02-2019 End: 11-03-2019 Evaluation and management of inpatient PROVIDER UNKNOWN Facility:[facility] Start: 06-17-2019 End: 06-18-2019 Patient encounter procedure NITA CHIANG Facility:[facility] Start: 02-22-2019 End: 02-22-2019 Emergency department patient visit Rashid Pruitt Facility:[facility] Start: 12-29-2018 End: 12-30-2018 Patient encounter procedure RANDAL MEZA Facility:[facility] Procedures Date Procedure Procedure Detail Performing Clinician Start: 12-28-2021 Cystoscopy Alexandria Nelson pe Start: 11-07-2020 Cardiac pacemaker, d evice (physical object) Alexandria Jim Start: 11-02-2019 OCCLUSION OF JOHN WIT H INTRALUM DEV, PERC APPROACH MARIO V MOUKARBEL Start: 11-02-2019 ULTRASONOGRAPHY OF L EFT HEART, TRANSESOPHAGEAL RANDAL MEZA Start: 06-17-2019 Antibody screen RANDAL HIGGINS Comment on above: Performed By: #### 6 [id number] #### [address] Start: 01-06-2019 Cystourethroscopy wi dilation of urethral stricture Alexandria Jim section Alexandria Lamp e Hysterectomy Alexandria Jim Immunizations Immunization Date Immunization Notes Care Provider Fa lexie 01-25-2021 SARS-CoV-2 (COVID-19 ) mRNA BNT-162b2 vax Alexandria Jim [facility] 01-04-2021 SARS-CoV-2 (COVID-19 ) mRNA BNT-162b2 vax Alexandria Jim [facility] NEGATED: Highlighted row has not occurred!11-11-2021 influenza virus vaccine, unspecified formulation Alexandria Jim [facility] Payers Date Payer Category Payer Self-pay 1970 Unknown [id number] [id number] 1970 Unknown [id number] 2.16.8 [id number] 1970 Unknown [id number] 2.16.8 [id number] 1970 Unknown [id number] 2.16.84 [id number] 1970 Unknown [id number] 2.16.84 [id number] 1970 Unknown [id number] 2.16.8 [id number] 1959 Self-pay [id number] 1959 Unknown [id number] Unknown [id number] Unknown [id number] 2.16.84 [id number] Social History Date Type Detail Facility Unknown if ever smoked [facility] Other Sex Assigned At [facility] Start: 01-13-2022 Tobacco smoking status Never s moked tobacco (finding) [facility] Tobacco smoking status Never [facility] Clinical Notes 09-08-2021 to 07-12-2024 Note Date & Type Note Facility 07-12-2024 Note Pt is here for follo w up from afib ablation. Review of Systems Musculoskeletal: Positive for myalgias. All other systems reviewed and are negative. [facility] 07-12-2024 Note Cardiovascular Medic ine [facility] SUBJECTIVE Chief Complaint Patient presents with Atrial Fibrillation Hypertension Todd Stanley is a 53 y.o. female here for follow-up. HPI PMHx: -Supraventricular tachycardia s/p ablation procedure in the past and dual chamber pacemaker placement which was initially placed on the right side and then was moved to the left side -Hypertension -Paroxysmal atrial fibrillation, hx hematuria, s/p Watchman 10/2019, s/p ablation 05/2024 -Persistent left superior vena cava. -hx CVA 07/12/2024 She has been doing well since her procedure. Denies any sx's - although she wasn't experiencing sx's prior. Ablation access site healed well. Denies c/o CP, dyspnea, orthopnea, PND, LE edema, dizziness/LH, palpitations, syncope. Patient Active Problem List Diagnosis Atrial fibrillation (CMS/HCC) Sinus node dysfunction (CMS/HCC) Paroxysmal supraventricular tachycardia (CMS/HCC) Benign hypertension Chronic pain Dyspnea Kidney stones Nocturia Pacemaker Pacemaker complications Pacemaker malfunction Persistent left superior vena cava Presence of Watchman left atrial appendage closure device Asymptomatic microscopic hematuria CVA (cerebral vascular accident) (CMS/HCC) Cardiomegaly Nonspecific intraventricular block Rheumatic tricuspid insufficiency Past Medical History: Diagnosis Date Abnormal ECG Arrhythmia Atrial fibrillation (CMS/HCC) Hypertension Kidney stones Myalgia Sinus node dysfunction (CMS/HCC) Family History Problem Relation Name Age of Onset Bilateral breast cancer Other Diabetes Other Coronary artery disease Other Hypertension Other Social History Tobacco Use Smoking status: Never Passive exposure: Never Smokeless tobacco: Never Substance Use Topics Alcohol use: Not Currently Drug use: Never No Known Allergies Review of Systems Constitutional: Negative for chills, decreased appetite, fever, malaise/fatigue and weight gain. Cardiovascular: Negative for chest pain, dyspnea on exertion, irregular heartbeat, leg swelling, near-syncope, orthopnea, palpitations, paroxysmal nocturnal dyspnea and syncope. Hematologic/Lymphatic: Negative for bleeding problem. Does not bruise/bleed easily. OBJECTIVE Visit Vitals BP 138/85 (BP Location: Left arm, Patient Position: Sitting) Pulse 60 Ht 1.575 m (5' 2 ) Wt 60.3 kg (133 lb) SpO2 98% BMI 24.33 kg/m??? OB Status Postmenopausal Smoking Status Never BSA 1.62 m??? Medications: Current Outpatient Medications: dilTIAZem CD (Cardizem CD) 120 mg 24 hr capsule, TAKE 1 CAPSULE TWICE A DAY, Disp: 60 capsule, Rfl: 0 lisinopril 5 mg tablet, TAKE 1 TABLET DAILY, Disp: 90 tablet, Rfl: 3 rivaroxaban (Xarelto) 20 mg tablet, Take 1 tablet (20 mg) by mouth daily with evening meal. Take with food. Do not start before June 10, 2024., Disp: 30 tablet, Rfl: 2 Physical Exam Vitals reviewed. Constitutional: Appearance: Normal appearance. She is normal weight. HENT: Head: Normocephalic and atraumatic. Right Ear: External ear normal. Left Ear: External ear normal. Eyes: Extraocular Movements: Extraocular movements intact. Conjunctiva/sclera: Conjunctivae normal. Pupils: Pupils are equal, round, and reactive to light. Neck: Vascular: No carotid bruit. Cardiovascular: Rate and Rhythm: Normal rate and regular rhythm. Pulses: Normal pulses. Heart sounds: Normal heart sounds. Pulmonary: Effort: Pulmonary effort is normal. Breath sounds: Normal breath sounds. Abdominal: General: Bowel sounds are normal. Palpations: Abdomen is soft. Musculoskeletal: Cervical back: Neck supple. Right lower leg: No edema. Left lower leg: No edema. Skin: General: Skin is warm and dry. Neurological: General: No focal deficit present. Mental Status: She is alert and oriented to person, place, and time. Psychiatric: Mood and Affect: Mood normal. Behavior: Behavior normal. Thought Content: Thought content normal. Judgment: Judgment normal. Labs: Admission on 06/09/2024, Discharged on 06/09/2024 Component Date Value Ref Range Status Ventricular Rate 06/09/2024 71 BPM Final Atrial Rate 06/09/2024 131 BPM Final QRS DURATION 06/09/2024 142 ms Final QT Interval 06/09/2024 456 ms Final QTC CALCULATION(BAZETT) 06/09/2024 495 ms Final R-[place] 06/09/2024 74 degrees Final T Wave [place] 06/09/2024 -85 degrees Final Protime 06/09/2024 12.9 12.3 - 14.8 Seconds Final INR 06/09/2024 0.97 0.90 - 1.10 Final Glucose POC 06/09/2024 104 70 - 105 mg/dL Final Ventricular Rate 06/09/2024 69 BPM Final QRS DURATION 06/09/2024 92 ms Final QT Interval 06/09/2024 464 ms Final QTC CALCULATION(BAZETT) 06/09/2024 497 ms Final R-[place] 06/09/2024 -58 degrees Final T Wave [place] 06/09/2024 87 degrees Final POCT ACT 06/09/2024 400 (A) 82 - 152 seconds In process QC Pass/Fail 06/09/2024 Passed In process QC LOT # 06/09/2024 18 In process QC (more content not included)... [facility] 06-09-2024 Note ATRIAL FIBRILLATION ABLATION PROCEDURE NOTE DATE OF PROCEDURE: 06/09/2024 PERFORMING PHYSICIAN: Dr. Clement Perez CONSENT: Patient NAME OF THE PROCEDURE: Pulmonary Vein Isolation and Comprehensive EP study. INDICATIONS FOR PROCEDURE: 1. Early Persistent atrial fibrillation. FLUROSCOPY: 4.9minutes/ 21mGy. EBL: 15cc SPECIMEN REMOVED: None PROCEDURES PERFORMED: 1. Sonosite guided venous access as noted below and images stored in PACS. 2. Comprehensive EP study and catheter ablation for persistent atrial fibrillation through the pulmonary vein isolation technique. This includes right atrial recording and pacing, His bundle recording and right ventricular recording and pacing. 3. Intracardiac EP 3D mapping. 4. Intracardiac echocardiogram 5. Left atrial and coronary sinus recording and pacing to assess ablation results. 6. Left heart pressure measurements and LV pacing and recording. 7. Induction of arrhythmia and testing of ablation results using intravenous adenosine infusion. 8. Fluroscopy. 9. Pre and Post ablation device testing. INDICATION: 53year old with past medical history of Afib, persistent LSVC who underwent PPM implant in 2007 for SND. She then had a gen change in [address] Cain with a suubsequent pocket revision by Dr Grider 2 months later. Subsequently this was infected and she underwent lead extraction at [facility]. A new dual chamber system was implanted at [facility]. She is also s/p WATCHMAN implant by Dr DAVILA. Now her device has approached HANNA. The current device is submuscular. She has [employer] device with 96% A pacing and 69% V pacing. She has underlying junctional and noted to have 2: 1 block when HR is >100bpm. Pt had episode of AF 1 month ago and was present for >1hr. She has come for Afib ablation. She is ablae to tolerate DOAC and previously underwent WATCHMAN for hematuria. Previously, she underwent hysterectomy in October of 2018 and in November of 2018 she sustained a cerebrovascular event consisting of slurred speech and unsteady gait among other symptoms. She was evaluated by Dr. Tiago Howe from Neurology at the time of her cerebrovascular symptoms according to Neurology note Left-sided weakness and left-sided numbness followed by an acute confusional state and transient global type a knee just symptoms. She was also observed to have dysarthria and difficulty with her speech as well as a left facial droop . An MRI of the brain could not be performed due to her pacemaker not being MRI compatible.At that time she was evaluated by Cardiology and interrogation of her pacemaker revealed 1.7% burden of atrial fibrillation. She was was recommended anticoagulation therapy. She has been maintained on apixaban 5 milligram twice daily until it was stopped after WATCHMAN implant. PROCEDURE NOTE: On the day of presentation, he was noted to be in sinus rhythm following which the ENMANUEL was deferred. Risks, benefits and alternatives of the procedure were discussed with the patient and family who agreed to proceed. Please refer to my consult note for details of the discussion and of indications. The patient was prepped and draped following which four venous access was procured on right side as noted below. Ultrasound was used to determine the course and patency of the femoral veins on both sides and they were noted to be patent and the image stored in PACS. After infiltration with 1% lidocaine, 4 venous sheaths were placed in the right as noted below and a radial arterial line was placed by Anesthesia team. RFV: 8Fx3, [employer] Thermo[employer] SF Bi-Directional over SL1/ Vizigo, SL1: Octoray,, CS Catheter (EZ Steer). 9F: ICE catheter, Device was programmed to DDI and lead thresholds checked. Following venous access, heparin bolus was given followed by continuous intravenous drip to target ACT around 350. An intracardiac ultrasound catheter was inserted into the right atrium to examine the right atrial anatomy, atrial septum, pulmonary vein anatomy and to monitor for pericardial effusion and guide transseptal access. The LA and RA was only moderately dilated. At baseline, there was no pericardial effusion and no JOHN clot but noted a very prominent Coumadin ridge. Pt was noted to have persistent LSVC through which the leads were placed. Esophagus was mapped using the [employer] 3D mapping software and noted to be towards the LSPV. Transeptal access was procured with ICE guidance using a SL-1 sheath and Pooja needle. LV pacing was performed and no VA conduction was seen. Interestingly, patient was noted to go into Afib with termination. Following this, Octoray,catheter was advanced and the multipolar mapping performed of the LA creating a geometry as well as bipolar voltage assessment was made. The LA was noted to be healthy except superiorly in the roof aspect of the LA in the posterior aspect. After FAM geometry was performed, a 2nd transseptal was perform (more content not included)... [facility] 06-09-2024 Note Patient: Todd palomares Procedure Summary Date: 06/09/24 Room / Location: [facility] ACCOUNT SERVICES COORDINATOR 1 / [facility] (Cath) Anesthesia Start: 831 Anesthesia Stop: Procedure: Ablation a-fib paroxysmal Diagnosis: Paroxysmal atrial fibrillation (CMS/HCC) (Paroxysmal atrial fibrillation (CMS/HCC) [I48.0]) Providers: Clement Perez MD Responsible Provider: Rafael Miranda MD Anesthesia Type: general ASA Status: 3 Anesthesia Post Transport Note Transport to: PACU O2 Route: room air Patient Monitor: direct observation Transport: uneventful Patient condition is: stable Comments: Patient was able to respond and follow verbal commands throughout transport process [facility] 06-09-2024 Note Patient: Todd palomares Procedure Summary Date: 06/09/24 Room / Location: [facility] ACCOUNT SERVICES COORDINATOR 1 / [facility] (Cath) Anesthesia Start: 831 Anesthesia Stop: Procedure: Ablation a-fib paroxysmal Diagnosis: Paroxysmal atrial fibrillation (CMS/HCC) (Paroxysmal atrial fibrillation (CMS/HCC) [I48.0]) Providers: Clement Perez MD Responsible Provider: Rafael Miranda MD Anesthesia Type: general ASA Status: 3 Anesthesia Type: general Vitals Value Taken Time BP 112/63 06/09/24 1253 Temp 36 ???C (96.8 ???F) 06/09/24 1225 Pulse 68 06/09/24 1252 Resp 15 06/09/24 1252 SpO2 100 % 06/09/24 1252 Vitals shown include unvalidated device data. Anesthesia Post Evaluation Patient location during evaluation: PACU Patient participation: complete - patient participated Level of consciousness: awake Pain score: 1 Pain management: adequate Airway patency: patent Cardiovascular status: stable Respiratory status: acceptable Hydration status: balanced Patient is hemodynamically stable and is able to be discharged from PACU per anesthesia protocol. No notable events documented. [facility] 06-09-2024 Note Airway Date/Time: 06/09/2024 8:52 AM Urgency: elective Airway not difficult General Information and Staff Patient location during procedure: OR Anesthesiologist: Rafael Miranda MD Resident/WARP DRAWER/CAA: Iliana Gandara MD Performed: other anesthesia staff Learner assisted: Reina Lundberg Indications and Patient Condition Indications for airway management: anesthesia Spontaneous Ventilation: absent Sedation level: deep Preoxygenated: yes Patient position: sniffing Mask difficulty assessment: 1 - vent by mask Planned trial extubation Final Airway Details Final airway type: endotracheal airway Successful airway: ETT Cuffed: yes Successful intubation technique: video laryngoscopy Facilitating devices/methods: intubating stylet Endotracheal tube insertion site: oral Blade: Ramírez Blade size: #3 ETT size (mm): 7.5 Cormack-Lehane Classification: grade I - full view of glottis Placement verified by: chest auscultation and capnometry Measured from: lips ETT to lips (cm): 22 Number of attempts at approach: 1 Number of other approaches attempted: 0 [facility] 06-09-2024 Note Arterial Line: Date/Time: 06/09/2024 7:35 AM An arterial line was placed Procedure performed using surface landmarks.in the pre-op for the following indication(s): continuous blood pressure monitoring and blood sampling needed. A 20 G (size), 2 inch (length), Angiocath (type) catheter was placed, Seldinger technique used , into the Left radial artery, secured by Biodisc/Biopatch, tape and Tegaderm. Events: patient tolerated procedure well with no complications. Medications Administered lidocaine (XYLOCAINE) 1 % SubQ - infiltration 1 mL - 06/09/2024 7:35:00 AM Staffing Performed: resident/WARP DRAWER/CAA Anesthesiologist: Rafael Miranda MD Resident/WARP DRAWER: Iliana Gandara MD Performed by: Iliana Gandara MD Authorized by: Iliana Gandara MD [facility] 06-09-2024 Note Patient: Todd palomares Procedure Information Date/Time: 06/09/24 0800 Procedure: Ablation a-fib paroxysmal Location: [facility] ACCOUNT SERVICES COORDINATOR 1 / [facility] (Cath) Providers: Clement Perez MD Relevant Problems Cardio METS >4 without chest pain or SOB (+) Atrial fibrillation (CMS/HCC) (+) Benign hypertension (+) Pacemaker (+) Paroxysmal supraventricular tachycardia (CMS/HCC) (+) Persistent left superior vena cava (+) Sinus node dysfunction (CMS/HCC) Endo Glucose 104 /Renal K 4.3 Cr 0.62 (+) Kidney stones Neuro/Psych (+) CVA (cerebral vascular accident) (CMS/HCC) (4 years ago, no lasting deficits) Other Hgb 15.2 EKG: No results found for this or any previous visit (from the past 4464 hour(s)). Echo 06/06/24: Clinical information reviewed: Tobacco Allergies Meds Med Hx Surg Hx OB Status Fam Hx Soc Hx Physical Exam Airway Mallampati: III TM distance: >3 FB Neck ROM: full Cardiovascular Rhythm: regular Rate: normal Dental - normal exam Pulmonary Breath sounds clear to auscultation Abdominal - normal exam Anesthesia Plan ASA 3 general The patient is not a current smoker. Patient was previously instructed to abstain from smoking on day of procedure. Patient did not smoke on day of procedure. Education provided regarding risk of obstructive sleep apnea. intravenous induction Postoperative administration of opioids is intended. Trial extubation is planned. Anesthetic plan and risks discussed with patient. Use of blood products discussed with patient who consented to blood products. Plan discussed with attending. Additional Equipment Requests [facility] 05-12-2024 Note Device interrogation q 6 months [facility] 05-12-2024 Note stable [facility] 05-12-2024 Note Continue lisinopril and Diltiazem- provider asked pt to check b/p at home 1-2 times/day and goal is < 130/80- she voiced understanding that staff will call her in 1-2 weeks to review b/p log and she is to call office. [facility] 05-12-2024 Note Stable s/p SVT Ablat ion 2008- remains on diltiazem. [facility] 05-12-2024 Note Stable s/p PPM implantation [facility] 05-12-2024 Note [facility] CARDIOLOGY PROGR ESS NOTE HPI: Todd Stanley is a 53 y.o. female here for routine f/u HPI Patient here for 1 year follow up sinus node dysfunction s/p PPM and afib s/p Watchman implant. Her device was interrogated in the office 2 days ago. She denies chest pain, SOB, palpitations, and lightheadedness/syncope. Denied any symptoms during a fib noted on device interrogation. Review of Systems Musculoskeletal: Positive for myalgias. All other systems reviewed and are negative. Previous per Dr Perez 03/24/23 HPI: Todd Stanley is a 52 y.o. 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 She then had a gen change in [address] Cain with a suubsequent pocket revision by Dr Grider 2 months later. Subsequently this was infected and she underwent lead extraction at [facility]. A new dual chamber system was implanted at [facility]. She is also s/p WATCHMAN implant by Dr DAVILA. Now her device has approached HANNA. The current device is submuscular. She has [employer] device with 96% A pacing and 69% V pacing. She has underlying junctional and noted to have 2: 1 block when HR is >100bpm. Visit Vitals BP (!) 146/96 (BP Location: Right arm, Patient Position: Sitting) Pulse 65 Ht 1.575 m (5' 2 ) Wt 59.9 kg (132 lb) SpO2 97% BMI 24.14 kg/m??? OB Status Postmenopausal Smoking Status Never BSA 1.62 m??? No Known Allergies Medications: Current Outpatient Medications on File Prior to Visit Medication Sig Dispense Refill aspirin 81 mg EC tablet Take 81 mg by mouth in the morning. dilTIAZem CD (Cardizem CD) 120 mg 24 hr capsule TAKE 1 CAPSULE TWICE A DAY 60 capsule 0 lisinopril 5 mg tablet TAKE 1 TABLET DAILY 90 tablet 3 traMADol (Ultram) 50 mg tablet TAKE 1 TABLET BY MOUTH EVERY 8 HOURS NEEDED FOR SEVERE PAIN No current facility-administered medications on file prior to visit. Physical Exam: Constitutional: Appearance: Normal appearance. Without apparent distress HENT: Head: Normocephalic and atraumatic. Nose: Nose normal. Mouth/Throat: Mouth: Mucous membranes are moist. Eyes: Extraocular Movements: Extraocular movements intact. Conjunctiva/sclera: Conjunctivae normal. Neck: Vascular: No JVD. Cardiovascular: Rate and Rhythm: Normal rate and regular rhythm. Pulses: Dorsalis pedis pulses are 3 on the right side and 3on the left side. Posterior tibial pulses are 3 on the right side and 3 on the left side. Heart sounds: Normal heart sounds, S1 normal and S2 normal. Pulmonary: Effort: Pulmonary effort is normal. Breath sounds: Normal breath sounds. Abdominal: General: Bowel sounds are normal. Palpations: Abdomen is soft. Musculoskeletal: General: Normal range of motion. Cervical back: Normal range of motion. Right lower leg: No edema. Left lower leg: No edema. Skin: General: Skin is warm and dry. Capillary Refill: Capillary refill takes less than 2 seconds. Neurological: General: No focal deficit present. Mental Status: She is alert and oriented to person, place, and time. Psychiatric: Mood and Affect: Mood normal. Behavior: Behavior normal. Thought Content: Thought content normal. Judgment: Judgment normal. Labs: 07/10/23 CBC normal NA 141, K+ 4.3 BUN 20, CR 0.62 Normal LFT normal Chol 172, Trig 65, LDL 93, HDL 66- well controlled Last lab values have been reviewed CV Testing: Device interrogation 05/10/24- Normal device function, lead measurements stable. 2 NSVT events, Consistent with AT with 1:1, and 33 mode switches, consistent with A fib- longest 3 hr 22 min. 04/02/23 TTE LVSF normal 65-70% No wall motion abnormalities Mod increased LV thickness RV normal size and function RVSP 39 LA severe dilatation, Mild RA dilatation Mod tricuspid regurg No echocardiogram results found for the past 12 months Assessment/Plan: Atrial fibrillation (CMS/HCC) - AF s/p WATCHMAN - no anticoagulation Continue diltiazem, noted A fib on PPM device interrogation and d/w pt about possible a fib ablation, provided pt information via pamphlet about a fib ablation, and she voiced understanding and agreement- Dr Perez- EP updated. During A fib episodes she is not in RVR and rate remains controlled, she denied any symptoms Sinus node dysfunction (CMS/HCC) Stable s/p PPM implantation Paroxysmal supraventricular tachycardia (CMS/HCC) Stable s/p SVT Ablation 2008- remains on diltiazem. Benign hypertension Continue lisinopril and Diltiazem- provider asked pt to check b/p at home 1-2 times/day and goal is < 130/80- she voiced understanding that staff will call her in 1-2 weeks to review b/p log and she is to call office. Presence of Watchman left atrial appendage closure device stable Pacemaker Device interrogation q [address] Perez- possible a fib abalation. [facility] 05-12-2024 Note Patient here for 1 y ear follow up sinus node dysfunction s/p PPM and afib s/p Watchman implant. Her device was interrogated in the office 2 days ago. She denies chest pain, SOB, palpitations, and lightheadedness/syncope. Review of Systems Musculoskeletal: Positive for myalgias. All other systems reviewed and are negative. [facility] 05-12-2024 Note - AF s/p WATCHMAN - no anticoagulation Continue diltiazem, noted A fib on PPM device interrogation and d/w pt about possible a fib ablation, provided pt information via pamphlet about a fib ablation, and she voiced understanding and agreement- Dr Perez- EP updated. During A fib episodes she is not in RVR and rate remains controlled, she denied any symptoms [facility] 09-08-2021 Evaluation note Encounter Date Diagnosis Assessment Notes Aug, Herpes zoster without complication (ICD-10 - B02.9) Drink plenty fluids, get plenty of rest. Continue home medications as prescribed. Take the Valtrex as prescribed until gone. Consider using [id number] er capsaicin cream to the rash for pain. Follow-up with your family physician if no improvement in 2 to 3 days. [facility] Other Evaluation + Plan note No data available for this section [facility] - [facility]orted* Type Description Date Medical History stroke Medical History heart disease Medical History htn Surgical History hysterectomy Surgical History pacemaker Surgical History watchman Hospitalization History see above Hospitalization History stroke 2019 [facility] Other [facility] Discharge instructions No data available for this section [facility] No data available for this section [facility] Summary Purpose Family History No Family History Records FoundNo Family History Records FoundNo Family History Records Found No data available for this section No Family History Records FoundNo Family History Records Found Advance Directives No Advanced Directives Records FoundNo Advanced Directives Records FoundNo Advanced Directives Records FoundNo Advanced Directives Records FoundNo Advanced Directives Records Found Hospital Course Note MR#: [id number] [facility] Pt. Name: Deedee Stanley Admitted: 11/02/2019 Discharged: 11/03/2019 Date of : 1970 Physician: Mario Landrum M.D. DISCHARGE SUMMARY PRIMARY DIAGNOSIS: Atrial fibrillation. SECONDARY DIAGNOSES: Hypertension, hematuria, history of transient ischemic attack. HISTORY OF PRESENT ILLNESS: This is a 48-year-old female with a history of hypertension, atrial fibrillation, paroxysmal, and transient ischemic attack. Her CHADS-VASc score is 4. She was placed on anticoagulation, but did not tolerate it due to recurrent gross hematuria. She was evaluated by an outside urologist, who agreed that she needs a better alternative anticoagulation for prevention of strokes. She currently is admitted with no anticoagulation. She has a shared care decision making with her mail opener, Dr. Ian Bruce, they both agreed that she should undergo the Watchman left atrial appendage closure procedure as an alternative to long-ter (more content not included)... Additional Source Comments INFORMATION SOURCE (unrecogn ized section and content) DATE CREATED AUTHOR 02/26/2019 [facility] DATE CREATED AUTHOR AUTHOR'S ORGANIZ ATION 12/20/2019 [facility] DATE CREATED AUTHOR AUTHOR'S ORGANIZ ATION 04/05/2023 [facility] DATE CREATED AUTHOR AUTHOR'S ORGANIZ ATION 12/28/2023 [facility] DATE CREATED AUTHOR AUTHOR'S ORGANIZ ATION 07/20/2024 [facility] REASON FOR VISIT (unrecogniz ed section and content) RASH ON BACK OF NECK FOR 3 D AYS Patient Care team informatio n (unrecognized section and content) Personnel Name: Kasey Pop MD Address: Address: [address] [place] [address] FOR RECORDS PERTAINING TO PATIENTS WHO ARE OR HAVE BEEN ENROLLED IN A CHEMICAL DEPENDENCY/SUBSTANCEABUSE PROGRAM, SOME INFORMATION MAY BE OMITTED. This clinical summary was aggregated from multiple sources. Caution should be exercised in using it in the provision of clinical care. This summary normalizes information from multiple sources, and as a consequence, information in this document may materially change the coding, format and clinical context of patient data. In addition, data may be omitted in some cases. CLINICAL DECISIONS SHOULD BE BASED ON THE PRIMARY CLINICAL RECORDS. [employer] [facility]. provides no warranty or guarantee of the accuracy or completeness of information in this document.
--- NOTE | 2024-07-22 07:30 | CA_ITS ---
Patient Name: HILDA STANLEY MR#: [id number] : 1970 Exam Date: 07/22/2024 Ordering Doctor: DELFINA TAO CNP ECHOCARDIOGRAM REPORT PROCEDURE: CA ECHO LIMITED INDICATIONS: Chest pain, R/O pericardial effusion, pacemaker, ablation (06/2024), watchman COMPARISON: None. DESCRIPTION: Limited ECHOCARDIOGRAM Real-time transthoracic echocardiography with 2D and M-mode performed. QUALITY: Technical quality was good. LEFT VENTRICLE: Normal chamber size. Thickened septal wall. Normal systolic function. LV EF: Normal left ventricular ejection fraction, (55-60%). DIASTOLIC: ATRIAL SEPTUM: LEFT ATRIUM: Moderate dilatation. RIGHT ATRIUM: Mild dilatation. RIGHT VENTRICLE: Normal chamber size. Normal systolic function. Pacer wire present. TRICUSPID VALVE: Normal mobility and thickness. MITRAL VALVE: Normal mobility and thickness. There is no mitral annular calcification. AORTIC VALVE: Normal trileaflet appearance. No visible sclerosis. Normal leaflet mobility. AORTIC ROOT: Normal diameter and appearance. Ascending aorta is dilated (3.8 cm) PULMONIC VALVE: Normal thickness and mobility. PERICARDIUM: No evidence of pericardial effusion. IVC: Not well visualized. PLEURA: CONCLUSION: 1. Normal ventricular size and systolic function. LVEF is estimated at 55 to 60%. 2. Mild to moderate biatrial dilatation. 3. No pericardial effusion. 4. The ascending aorta is mildly dilated measuring 3.8 cm. Adult Echocardiography Procedure Report Left Ventricle LVEDD (3.7 - 5.6 cm): 3.88 cm LVESD (2.2 - 4.0 cm): 2.43 cm LVIVS thickness (0.6 - 1.2 cm): 1.39 cm LVPW thickness (0.5 - 1.0 cm): 1.07 cm LVOT Diameter 1.84 cm Left Atrium Left Atrium Systolic Dimension: 4.34 cm Mitral Valve Right Ventricle Aorta AO Root Diam: 3.20 cm Ascending Ao Diam: 3.79 cm Aortic Valve Tricuspid Valve Pulmonic Valve Right Atrium Dictated by: Rick Landrum M.D. on 07/22/2024 at 17:40 Approved by: Rick Landrum M.D. on 07/22/2024 at 17:42
== END 2024-07-22 07:07 | disposition home or self-care (01) ==
LOC: CARD 07:06
PROVIDERS: PCP Family Medicine; Visit Provider Nurse Practitioner Family
DX: R07.89 Other chest pain (principal)
CPT/HCPCS: 93308

== ENCOUNTER 2024-12-05 08:39 | Outpatient (OUT) | payer OTHER, SELFPAY ==
--- NOTE | 2024-12-05 | NM_ITS ---
Patient Name: HILDA STANLEY MR#: [id number] : 1970 Exam Date: 12/05/2024 Ordering Doctor: DR. KIRSTEN LINDO M.D. RADIOLOGY REPORT PROCEDURE: NM CAROL ANN PERF SPECT REST STR COMPARISON: None. INDICATIONS: CHEST PAIN TECHNIQUE: Exam Description: Stress/Rest one day protocol gated SPECT Rest Imagin.8 mCi Tc-99m Cardiolite IV on 12/05/2023 Stress Imaging 29.5 mCi Tc-99m Cardiolite IV on 12/05/2023 Exercise Protocol: 0.4 mg Lexiscan given IV Heart Rate (bpm): Rest: 63 Max: 83 PMHR: Blood Pressure: Rest: 126/94 Max: 144/88 Symptoms: Rest and peak stress ECG findings were normal and the exercise portion of the study was normal per attending physician Dr. Lindo . For more details please see separate cardiac stress test report. FINDINGS: QUALITY OF STUDY: Excellent. PERFUSION DEFECT: None. LOCATION: N/A SIZE: N/A. SEVERITY: N/A. TYPE: N/A. WALL MOTION: Normal. LV SIZE: Normal. 66 mL. TID / TCD: None; 0.8 LVEF: Normal. Calculated EF 82%. SUMMARY: Myocardial perfusion imaging study is NORMAL. CONCLUSION: 1. No acute or reversible ischemia. 2. Normal wall motion, left ventricle volume, and ejection fraction. Dictated by: Alejandro Brice M.D. on 12/06/2024 at 14:32 Approved by: Alejandro Brice M.D. on 12/06/2024 at 14:35
--- NOTE | 2024-12-05 | PCN_ITS ---
CARDIAC STRESS TEST Requesting Physician: Procedure Date: 12/05/2024 EKG LEXISCAN STRESS TEST INDICATION FOR THE PROCEDURE: Chest pain. The procedure in details, including risks and benefits were discussed with the patient and she was agreeable to proceed. Resting EKG showed atrial pacing and occasional ventricular pacing, left axis deviation, ST-T changes in anterior leads. Resting heart rate 63 beats per minute, resting blood pressure 126/94 mm/Hg. Lexiscan 0.4 mg IV was injected and the patient was monitored for a few minutes after the injection. Max heart rate 83 beats per minute and max blood pressure 144/88 mm/Hg. EKG throughout the test did not show significant T or ST changes or significant arrhythmias. Atrial pacing persisted throughout the test; however, there was no ventricular pacing. CONCLUSION: 1. Negative EKG Lexiscan stress test for ischemia. 2. The nuclear images result will be reported separately by Radiology. [facility]
--- OUTSIDE RECORDS SUMMARY | 2024-12-05 08:55 | XMS_ITS | CCD ---
Author Organization [facility] Care Team Providers Care Cinder Pitman Name Role Phone Italia Pruitt Attending Unavailable Italia Pruitt Admitting Unavailable Kasey Pop Primary Care Unavailable JODI MEZA Admitting Unavailable JODI MEZA Attending Unavailable KASEY POP Referring Unavailable KASYE POP Primary Care Unavailable NITA CHIANG Admitting Unavailable NITA CHIANG Attending Unavailable KASEY POP Referring Unavailable KASEY POP Primary Care Unavailable UNKNOWN, PROVIDER Admitting Unavailable UNKNOWN, PROVIDER Attending Unavailable KASEY POP Referring Unavailable KASEY POP Primary Care Unavailable [place] Procedure Practitioner Unavailab le UNKNOWN, PROVIDER Surgeon Unavailable [place] Procedure Practitioner Unavailab JODI Hogan Surgeon Unavailable Monica Garcia Unavailable LUIS Cardozo, DR AUNG Syed Admitting Unavaila skyler Cardozo, DR AUNG Syed Attending Unavaila skyler POP ., DR PARKS Primary Care Unavailable CLEMENT PEREZ Admitting Unavailable CLEMENT PEREZ Attending Unavailable MARTIN ., DR PARKS Primary Care Unavailable CLEMENT PEREZ Consulting Unavailable MARTIN ., DR PARKS Admitting Unavailable MARTIN ., DR PARKS Attending Unavailable MARTIN ., DR PARKS Primary Care Unavailable MARTIN ., DR PARKS Consulting Unavailable Kasey Pop Primary Care Physician Aleaxndria Fernandez Referring Unavailable Alexandria Fernandez Attending Unavailable Alexandria Fernandez Admitting Unavailable CLEMENT PEREZ Admitting Unavailable CLEMENT PEREZ Attending Unavailable KIRSTEN REIS Attending Unavailable DELFINA TAO Attending Unavailable CLEMENT PEREZ Referring Unavailable CLEMENT PEREZ Referring Unavailable CLEMENT PEREZ Referring Unavailable CLEMENT PEREZ Attending Unavailable STANLEY REYES Attending Unavailable CLEMENT PEREZ Referring Unavailable Allergies Allergy Classification Reported Allergen(s) Allergy Type Date of Onset Reaction(s) Facility (1 source) 46833,00; Translations: [Unknown] Propensity to adverse reactions (disorder) [facility] Repository (1 source) No Known Medication Allergies; Translations: [No Known Medication Allergies] Propensity to adverse reactions (disorder) [facility] Repository Medications Current Medications Medication Drug Class(es) [...] VENA CAVA] Onset: 04-02-2023 Chronic Cardiac dysrhythmias (7 sources) Atrial fibrillation; Translations: [Unspecified atrial fibrillation] Onset: 03-24-2023 11-11-2021 Chronic Conduction [...] Translations: [RHEUMATIC TRICUSPID INSUFFICIENCY] Onset: 04-04-2023 Chronic Nonspecific chest pain (2 sources) Other chest pain; Translations: [Other chest pain] Onset: 10-10-2024 Episodic Other circulatory disease (2 sources) Presence of [...] Name Value Interpretation Reference Range Facility 36on 10-28-[address] Reis: Patient informed of Holter monitor result, with occasional PAC's and PVC's. Lexiscan stress test will be ordered. Patient made aware. Order faxed to [facility]. Patient verbalized understanding. [facility] Documentationon 10-13-2024 Documentation [id number] Todd Stanley 1970 F Date Provider Department Center 10/13/2024 [id number]-QCBVJENNIFER HARSHA HVCANTICOAG [facility] Family History Problem Relation Age of Onset Bilateral breast cancer Other Diabetes Other Coronary artery disease Other Hypertension Other Family Status - Relation Status Age at Other Reason for Visit and Comments: PharmD Cardiology Consult [Other] [facility] Office Visiton 10-10-2024 Follow-up visit [id number] Todd Stanley 1970 F Date Provider Department Center 10/10/2024 [facility] Family History Problem Relation Age of Onset Bilateral breast cancer Other Diabetes Other Coronary artery disease Other Hypertension Other Family Status - Relation Status Age at Other Level of Service:33062 [place] OFFICE/OUTPATIENT ESTABLISHED MOD MDM 30 MIN Reason for Visit and Comments: Hypertension [889519] Atrial Fibrillation [80] - Pt is here for a three month follow up. [facility] 36on 07-29-2024 36 Regarding limited echo result from 07/22/2024: CHIDI Mart MA Please let her know her ECHO showed no significant findings. Normal pumping function, no fluid collected around the heart. There is some mild enlargement in the aorta that we will keep an eye on with routine ECHOs. Good blood pressure and HR with keep this from getting bigger. Her chest pain may have possibly been a spasm of some kind. Sometimes GI issues can cause chest pain as well. We can refer to GI if she would like or see her PCP. Follow-up as planned. Thanks! Patient made aware. [facility] 36on 07-19-2024 36 Appreciate your help! Normal [facility] 36 She can get a limite d ECHO, assessing for effusion. I didn't see anything concerning on EKG, did you Dr. Perez? [facility] 36on 07-18-2024 36 Just spoke with Sandrita freedman and she hasn't transmitted since 07/12. She just left the office. I will email the ECG to you and Dr. Perez. She will have labs drawn right now. I did ask her to do a manual transmission when she gets home. [facility] 36 Patient just had ech o last month prior to ablation. Did you still want another one? I spoke with scheduling at [facility] and they can't get her in for an echo for a week or so. Unless you wanted a limited, as they have more wiggle room for that. Patient is coming to the office right now for EKG and labs. Will call Evoke right now also. [facility] 36 Patient called to make you aware of an episode that happened yesterday morning around 7:50am. She was woken up by chest pain. Says she wasn't able to breathe during this time. Patient states it felt like someone was gripping my heart . She says she hasn't felt right since then. She did not go to the ED. Any suggestions? [facility] Follow-Upon 07-12-2024 Follow-Up [id number] Todd Stanley 1970 F Date Provider Department Center 07/12/2024 166-DELFINA TAO CARD [facility] Family History Problem Relation Age of Onset Bilateral breast cancer Other Diabetes Other Coronary artery disease Other Hypertension Other Family Status - Relation Status Age at Other Level of Service:72857 [place] OFFICE/OUTPATIENT ESTABLISHED MOD MDM 30 MIN Reason for Visit and Comments: Atrial Fibrillation [80] Hypertension [183429] [facility] Telephoneon 07-01-2024 Telephone [id number] Todd Stanley Grayson 1970 F Date Provider Department Center 07/01/2024 1987-MEHRDAD LOPEZ [facility] VASC LAB [facility] Family History Problem Relation Age of Onset Bilateral breast cancer Other Diabetes Other Coronary artery disease Other Hypertension Other Family Status - Relation Status Age at Other Reason for Visit and Comments: 3 week post ablation f/u [Other] Normal [facility] Telephoneon 06-16-2024 Telephone [id number] Todd Stanley 1970 F Date Provider Department Center 06/16/2024 1987-MEHRDAD LOPEZ C [facility] Family History Problem Relation Age of Onset Bilateral breast cancer Other Diabetes Other Coronary artery disease Other Hypertension Other Family Status - Relation Status Age at Other Reason for Visit and Comments: week f/u post ablation [Other] Normal [facility] Anesthesiaon 06-09-2024 Anesthesia [id number] Todd Stanley 1970 F Date Provider Department Center 06/09/2024 4031-DILLON WILSON C [facility] Family History Problem Relation Age of Onset Bilateral breast cancer Other Diabetes Other Coronary artery disease Other Hypertension Other Family Status - Relation Status Age at Other Normal [facility] HPon 06-09-2024 [facility] Electrophysiology Consult Note Reason for visit: Afib [...] Intimate Partner Violence: Not At Risk (06/08/2023) [place] Safety & Environment Fear of Current or [...] no w (more content not included)... Normal [facility] NURSNOTEon 06-09-2024 NURSNOTE EKG called to do EKG . Pt/inr sent Normal [facility] Orders Onlyon 06-09-2024 Orders Only [id number] Todd Stanley 1970 F Date Provider Department Center 06/09/20241986-MEHRDAD LOPEZ [facility] Family History Problem Relation Age of Onset Bilateral breast cancer Other Diabetes Other Coronary artery disease Other Hypertension Other Family Status - Relation Status Age at Other Normal [facility] POCT GLUCOSE METER UNSOLICIT ED RESULTSon 06-09-2024 Glucose [Mass/Vol] 104 mg/dL Normal 70-105 [facility] Comment on above: Order Comment: Waive d Testing in the ED is performed under the ED CLIA certificate #[id number]. Result Comment: [facility] jennifer Performed By: #### L [id number] ####[facility] (BEAKER)[address] [place] [address] PROTIME-INRon 06-09-2024 INR IN PPP BY COAGULATION ASSAY 0.97 Normal 0.90-1.10 [facility] Comment on above: Result Comment: ACCC P [...] CHEST 1995;108:231S-246S. Performed By: #### L [id number] ####[facility] ([facility])[address] [place] [address] PROTHROMBIN TIME (PT) IN PPP BY COAGULATION ASSAY 12.9 Seconds Normal 12.3-14.8 [facility] Comment on above: Performed By: #### L [id number] ####[facility] ([facility])[address] [place] [address] CTA CHEST W IV CONTRASTon CTA CHEST [...] pathology. Electronically signed: Fatmata Wheeler MD. Not Jeffryd Invalid Interpretation Code [facility] Comment on above: Order Comment: Modesta freedman schedule prior to Jun 30 Telemedicineon 05-24-2024 Telemedicine [id number] Todd Stanley 1970 F Date Provider Department Center 05/24/2024 CLEMENT AGUAYO QIAN Plummer Family History Problem Relation Age of Onset Bilateral breast cancer Other Diabetes Other Coronary artery disease Other Hypertension Other Family Status - Relation Status Age at Other Level of Service:71910 [place] PHYS/QHP TELEPHONE EVALUATION 11-20 MIN Normal [facility] Orders Onlyon 05-17-2024 Orders Only [id number] Todd Stanley 1970 F Date Provider Department Center 05/17/2024 STANLEY GONZALEZ QIAN Baez. Family History Problem Relation Age of Onset Bilateral breast cancer Other Diabetes Other Coronary artery disease Other Hypertension Other Family Status - Relation Status Age at Other Normal [facility] Prep for Procedureon 024 Prep for Procedure [id number] Todd Stanley 1970 F Date Provider Department Center 05/17/2024 CLEMENT AGUAYO HV [facility] Family History Problem Relation Age of Onset Bilateral breast cancer Other Diabetes Other Coronary artery disease Other Hypertension Other Family Status - Relation Status Age at Other Normal [facility] Office Visiton 05-12-2024 Follow-up visit [id number] Todd Stanley 1970 F Date Provider Department Center 05/12/2024 STANLEY GONZALEZ QIAN Plummer Family History Problem Relation Age of Onset Bilateral breast cancer Other Diabetes Other Coronary artery disease Other Hypertension Other Family Status - Relation Status Age at Other Level of Service:59552 [place] OFFICE/OUTPATIENT ESTABLISHED MOD MDM 30 MIN Normal [facility] MA Mamm Screen w/CAD if perf and [...] very important to your health. The current [employer] and National Comprehensive Cancer [...] Category 1-Negative Recommendation: Normal interval follow-up Normal [facility] Consent for Treatmenton Consent for Treatment [id number] .00TIFF Normal [facility] Physician Orderon 12-15-2023 Physician Order [id number] .[id number] Normal [facility] ECHOCARDIO M/2D COMPLETEon 0 04-02-2023 ECHOCARDIO M/2D COMPLETE Patient: TODD STANLEY Exam Date: 04/02/2023 : 1970 Gender:F Ordering : CLEMENT PEREZ Admission #: [id number] Family : Order #: [id number] CLICK HERE TO VIEW EXAM ECHOCARDIOGRAM REPORT [...] Prince M.D. on 04/02/2023 at 15:09 Normal [facility] CBC AUTO DIFFon 07-10-2022 BASO # 0.1 103/ul Normal 0.0-0.1 [facility] Comment on above: Performed By: #### H FPFCBC #### [facility] [address] [place] [address] Dr. Landen Mcrae Basophils/100 WBC (Bld) 1.0 % Normal 0.2-2.0 [facility] Comment on above: Performed By: #### H FPFCBC #### [facility] [address] [place] [address] Dr. Landen Mcrae EO # 0.4 103/ul Normal 0.0-0.7 [facility] Comment on above: Performed By: #### H FPFCBC #### [facility] [address] [place] [address] Dr. Landen Mcrae Eosinophils/100 WBC (Bld) 4.0 % Normal 0.9-7.0 [facility] Comment on above: Performed By: #### H FPFCBC #### [facility] [address] [place] [address] Dr. Landen Mcrae Erythrocyte distribution width (RBC) [Ratio] 12.3 % Normal 11.0-15.0 [facility] Comment on above: Performed By: #### H FPFCBC #### [facility] [address] [place] [address] Dr. Landen Mcrae Hematocrit (Bld) [Volume fraction] 41.9 % Normal 36.0-48.0 [facility] Comment on above: Performed By: #### H FPFCBC #### [facility] [address] [place] [address] Dr. Landen Mcrae Hemoglobin (Bld) [Mass/Vol] 14.1 g/dL Normal 12.0-16.0 [facility] Comment on above: Performed By: #### H FPFCBC #### [facility] [address] [place] [address] Dr. Landen Mcrae IG # 0.04 10e3/ul Critically high 0.00-0.03 [facility] Comment on above: Performed By: #### H FPFCBC #### [facility] [address] [place] [address] Dr. Landen Mcrae IG % 0.5 % Normal 0.0-0.5 [facility] Comment on above: Performed By: #### H FPFCBC #### [facility] [address] [place] [address] Dr. Landen Mcrae LYMPH # 1.6 103/ul Normal 1.2-3.8 [facility] Comment on above: Performed By: #### H FPFCBC #### [facility] [address] [place] [address] Dr. Landen Mcrae Lymphocytes/100 WBC (Bld) 17.7 % Critically low 20.5-60.0 [facility] Comment on above: Performed By: #### H FPFCBC #### [facility] [address] [place] [address] Dr. Landen Mcrae MCH (RBC) [Entitic mass] 29.5 pg Normal 26.7-34.0 [facility] Comment on above: Performed By: #### H FPFCBC #### [facility] [address] [place] [address] Dr. Landen Mcrae MCHC (RBC) [Mass/Vol] 33.7 g/dL Normal 29.9-35.2 [facility] Comment on above: Performed By: #### H FPFCBC #### [facility] [address] [place] [address] Dr. Landen Mcrae MCV (RBC) [Entitic vol] 87.7 fL Normal 81.0-99.0 [facility] Comment on above: Performed By: #### H FPFCBC #### [facility] [address] [place] [address] Dr. Landen Mcrae MONO # 0.6 103/ul Normal 0.3-0.8 [facility] Comment on above: Performed By: #### H FPFCBC #### [facility] [address] [place] [address] Dr. Landen Mcrae Monocytes/100 WBC (Bld) 7.0 % Normal 1.7-12.0 [facility] Comment on above: Performed By: #### H FPFCBC #### [facility] [address] [place] [address] Dr. Landen Mcrae NEUT # 6.2 103/ul Normal 1.4-6.5 [facility] Comment on above: Performed By: #### H FPFCBC #### [facility] [address] [place] [address] Dr. Landen Mcrae Neutrophils/100 WBC (Bld) 69.8 % Normal 43.0-75.0 [facility] Comment on above: Performed By: #### H FPFCBC #### [facility] [address] [place] [address] Dr. Landen Mcrae Platelet mean volume (Bld) [Entitic vol] 9.9 fL Normal 9.5-13.5 [facility] Comment on above: Performed By: #### H FPFCBC #### [facility] [address] [place] [address] Dr. Landen Mcrae PLT 344 103/ul Normal 150-450 [facility] Comment on above: Performed By: #### H FPFCBC #### [facility] [address] [place] [address] Dr. Landen Mcrae RBC 4.78 106/ul Normal 4.20-5.40 [facility] Comment on above: Performed By: #### H FPFCBC #### [facility] [address] [place] [address] Dr. Landen Mcrae WBC 8.8 103/ul Normal 4.0-11.0 [facility] Comment on above: Performed By: #### H FPFCBC #### [facility] [address] [place] [address] Dr. Landen Mcrae [facility]ALTH[employer] PROFILEon 022 Albumin [Mass/Vol] 3.8 g/dL Normal 3.4-5.0 [facility] Comment on above: Performed By: #### H FPF #### [facility] [address] [place] [address] Dr. Landen Mcrae Albumin/Globulin [Mass ratio] 1.4 {ratio} Normal [facility] Comment on above: Performed By: #### H FPF #### [facility] [address] [place] [address] Dr. Landen Mcrae ALP [Catalytic activity/Vol] 83 U/L Normal 46-116 [facility] Comment on above: Performed By: #### H FPF #### [facility] [address] [place] [address] Dr. Landen Mcrae ALT [Catalytic activity/Vol] 19 U/L Normal 14-59 [facility] Comment on above: Performed By: #### H FPF #### [facility] [address] [address] [address] Landen Mcrae AST [Catalytic activity/Vol] 15 U/L Normal 15-37 [facility] Comment on above: Performed By: #### H FPF #### [facility] [address] [address] [address] Landen Mcrae Bilirubin [Mass/Vol] 0.5 mg/dL Normal 0.2-1.0 [facility] Comment on above: Performed By: #### H FPF #### [facility] [address] [place] [address] Dr. Landen Mcrae Calcium [Mass/Vol] 8.9 mg/dL Normal 8.5-10.1 [facility] Comment on above: Performed By: #### H FPF #### [facility] [address] [place] [address] Dr. Landen Mcrae Chloride [Moles/Vol] 103 mmol/L Normal 98-107 [facility] Comment on above: Performed By: #### H FPF #### [facility] [address] [place] [address] Dr. Landen Mcrae CHOL-HDL RATIO NORM SEE BELOW Normal [facility] Comment on above: Result Comment: 3.3 - 4.4 LOW RISK 4.4 - 7.1 AVERAGE RISK 7.1 - 11.0 MODERATE RISK >11.0 HIGH RISK Performed By: #### H FPF #### [facility] [address] [place] [address] Dr. Landen Mcrae Cholesterol [Mass/Vol] 161 mg/dL Normal <=200 [facility] Comment on above: Performed By: #### H FPF #### [facility] [address] [address] [address] Landen Mcrae Cholesterol in HDL [Mass/Vol] 57 mg/dL Normal 40-60 [facility] Comment on above: Performed By: #### H FPF #### [facility] [address] [place] [address] Dr. Landen Mcrae Cholesterol in LDL [Mass/Vol] 88.0 mg/dL Normal [facility] Comment on above: Performed By: #### H FPF #### [facility] [address] [address] [address] Landen Mcrae Cholesterol.total/C holesterol in HDL [Mass ratio] 2.8 {ratio} Normal [facility] Comment on above: Performed By: #### H FPF #### [facility] [address] [address] [address] Landen Mcrae CO2 [Moles/Vol] 27.1 mmol/L Normal 21.0-32.0 [facility] Comment on above: Performed By: #### H FPF #### [facility] [address] [address] [address] Landen Mcrae Creatinine [Mass/Vol] 0.58 mg/dL Normal 0.55-1.02 [facility] Comment on above: Performed By: #### H FPF #### [facility] [address] [address] [address] Landen Mcrae Globulin (S) [Mass/Vol] 2.8 g/dL Normal [facility] Comment on above: Performed By: #### H FPF #### [facility] [address] [address] [address] Landen Mcrae Glucose [Mass/Vol] 88 mg/dL Normal 74-106 [facility] Comment on above: Performed By: #### H FPF #### [facility] [address] [address] [address] Landen Mcrae HDL NORMAL > or = 60 mg/dl - LO W CARDIOVASCULAR RISK <40 mg/dl - HIGH CARDIOVASCULAR RISK Normal [facility] Comment on above: Performed By: #### H FPF #### [facility] [address] [address] [address] Landen Mcrae LDL CALC NORMAL SEE BELOW Normal [facility] Comment on above: Result Comment: <100 mg/dl OPTIMAL 100 - 129 mg/dl NEAR OR ABOVE OPTIMAL 130 - 159 mg/dl BORDERLINE HIGH 160 - 189 mg/dl HIGH >190 mg/dl VERY HIGH Performed By: #### H FPF #### [facility] [address] [address] [address] Landen Mcare Potassium [Moles/Vol] 3.8 mmol/L Normal 3.5-5.1 [facility] Comment on above: Performed By: #### H FPF #### [facility] [address] [address] [address] Landen Mcrae Protein [Mass/Vol] 6.6 g/dL Normal 6.4-8.2 [facility] Comment on above: Performed By: #### H FPF #### [facility] [address] [address] [address] Landen Mcrae Sodium [Moles/Vol] 140 mmol/L Normal 136-145 [facility] Comment on above: Performed By: #### H FPF #### [facility] [address] [address] [address] Landen Mcrae Triglyceride [Mass/Vol] 80 mg/dL Normal <=150 [facility] Comment on above: Performed By: #### H FPF #### [facility] [address] [address] [address] Landen Mcrae TSH 1.159 uIU/mL Normal 0.358-3.740 [facility] Comment on above: Performed By: #### H FPF #### [facility] [address] [address] [address] Landen Mcrae Urea nitrogen [Mass/Vol] 19.0 mg/dL Critically high 7.0-18.0 [facility] Comment on above: Performed By: #### H FPF #### [facility] [address] [address] [address] Landen Mcrae Urea nitrogen/Creatinine [Mass ratio] 32.8 mg/mg Normal [facility] Comment on above: Performed By: #### H FPF #### [facility] [address] [address] [address] Landen Mcrae VLDL CALC 16.0 mg/dL Normal [facility] Comment on above: Performed By: #### H FPF #### [facility] [address] [address] [address] Landen Mcrae CBC COMPLETE BLOOD COUNTon 1 01-04-2019 Erythrocyte distribution width (RBC) [Ratio] 12.7 % Normal 11.5-15.0 [facility] Comment on above: Order Comment: No: D o not add to previous draw Performed By: #### 0 0071 #### [facility] [address] [place] [address], [facility] Hematocrit (Bld) [Volume fraction] 36.4 % Normal 36.0-45.0 [facility] Comment on above: Order Comment: No: D o not add to previous draw Performed By: #### 0 0071 #### [facility] [address] [place] [address], [facility] Hemoglobin (Bld) [Mass/Vol] 12.0 g/dL Normal 12.0-15.0 [facility] Comment on above: Order Comment: No: D o not add to previous draw Performed By: #### 0 0071 #### [facility] [address] [address] [place] [id number], [facility] MCH (RBC) [Entitic mass] 29.3 pg Normal 27.0-33.0 [facility] Comment on above: Order Comment: No: D o not add to previous draw Performed By: #### 0 0071 #### [facility] [address] [place] [address], [facility] MCHC (RBC) [Mass/Vol] 33.0 g/dL Normal 32.0-35.0 [facility] Comment on above: Order Comment: No: D o not add to previous draw Performed By: #### 0 0071 #### [facility] [address] [place] [address], [place] MCV (RBC) [Entitic vol] 89.0 fL Normal 82.0-98.0 [facility] Comment on above: Order Comment: No: D o not add to previous draw Performed By: #### 0 0071 #### [facility] [address] [place] [id number], [facility] Nucleated RBC/100 WBC (Bld) [Ratio] 0 % Normal 0-0 [facility] Comment on above: Order Comment: No: D o not add to previous draw Performed By: #### 0 0071 #### [facility] [address] [facility] [address], [facility] PLAT CNT 242 10*3/uL Normal 150-400 The [facility] Comment on above: Order Comment: No: D o not add to previous draw Performed By: #### 0 0071 #### [facility] [address] [place] [address], [facility] RBC (Bld) [#/Vol] 4.09 10*6/uL Normal 3.80-5.00 The [facility] Comment on above: Order Comment: No: D o not add to previous draw Performed By: #### 0 0071 #### [facility] [address] [place] [address], [facility] WBC (Bld) [#/Vol] 8.63 10*3/uL Normal 4.00-10.60 [facility] Comment on above: Order Comment: No: D o not add to previous draw Performed By: #### 0 0071 #### [facility] [address] Cardiovascular Lab Reporton 11-03-2019 Cardiovascular Lab Report [facility] Patient Name: [facility] Deedee Galicia MR #: [id number] Department of Physician: Mario Ludin Patt Roblero M.D. Division of Service Date: 11/02/2019 Cardiology Birthdate: 1970 Adult Cardiovascular Room #: [address]CD [id number] [place] [address] Cardiovascular Laboratory Report INDICATION: The patient is a 48-year-old woman with a history of hypertension, paroxysmal atrial fibrillation, and transient ischemic attack. Her CHADS-VASc score is 4. She could not tolerate anticoagulation due to recurrent bleeding and hematuria. She has stopped the anticoagulation therapy. She had a shared care decision making with her continuous towel roller, Dr. Ian Bruce and they both agreed [...] device. 6. Transesophageal echocardiography performed by Dr. Jodi Meza for guidance of structural heart procedure. Please refer to her dictation for that. METHODS: Procedure was explained to the patient with risks and benefits. She signed an informed consent. She was brought to label printing machinist in a fasting state. A transesophageal echocardiogram was performed under conscious sedation. After clearing the appendage from thrombi and doing initial measurement, access was obtained in the right common femoral vein. Using ultrasound guidance and micropuncture technique, a 6-Colombian x 11 cm sheath was placed. A preclosure in the right common femoral vein was performed using a 6-Colombian ProGlide device. An SL-1 transseptal sheath was [...] sheath was then exchanged to the Watchman 14-Colombian access sheath single curve. Note that after initial access in the right common femoral vein, 3000 units of heparin were administered and after obtaining transseptal position, full heparinization was given with therapeutic ACT confirmed during the rest of the procedure and additional heparin given as needed. A 6-Colombian angled pigtail catheter was advanced into the [...] sheath was then sent back to the bias cutting machine operator for further examination. The patient tolerated the [...] as per protocol. Electronically Signed by: Mario Roblero M.D. 11/16/2019 07:08 P Mario Roblero M.D. Date Dict: 11/02/2019/01:50 P/Mario Roblero M.D. Date Trans: 11/03/2019 03:13 A/carla [id number] cc: Kasey Pop M.D. [address], [facility] [address] Normal [facility] PROTHROMBIN TIMEon 9 INR Coag (PPP) [Relative time] 1.16 {INR} Normal 0.91-1.16 [facility] Comment on above: Order Comment: No: D o not add to previous draw Result Comment: [facility] P RECOMMENDED INR FOR WARFARIN THERAPY ------ [...] 1995;108:231S-246S. Performed By: #### 0 0071 #### [address] [place] [address], [facility] PT Coag (PPP) [Time] 14.9 s High 12.3-14.8 [facility] Comment on above: Order Comment: No: D o not add to previous draw Result Comment: ALL RESULTS MUST BE INTERPRETED WITH RESPECT TO BLOOD DRAWING ARTIFACT OR DILUTION ERROR OF ANTICOAGULANT AT THE TIME OF SAMPLING. Performed By: #### 0 0071 #### [facility] [address] [place] [address], [facility] BASIC METABOLIC PANELon 10-23 Calcium [Mass/Vol] 9.0 mg/dL Normal 8.6-10.3 [facility] Comment on above: Performed By: #### 0 0071 #### [facility] [address] [place] [id number], [facility] Chloride [Moles/Vol] 102 mmol/L Normal 98-107 [facility] Comment on above: Performed By: #### 0 0071 #### [facility] [address] [place] [address], [place] CO2 [Moles/Vol] 29 mmol/L Normal 21-31 The [facility] Comment on above: Performed By: #### 0 0071 #### [facility] [address] [place] [id number], [facility] Creatinine [Mass/Vol] 0.61 mg/dL Normal 0.60-1.20 [facility] Comment on above: Performed By: #### 0 0071 #### [facility] [address] [place] [address], [place] GFR/1.73 sq M predicted among blacks MDRD (S/P/Bld) [Vol rate/Area] mL/min/{1.73_m2} Normal >60 [facility] Comment on above: Performed By: #### 0 0071 #### [facility] [address] [place] [address], [facility] GFR/1.73 sq M predicted among non-blacks MDRD (S/P/Bld) [Vol rate/Area] mL/min/{1.73_m2} Normal >60 [facility] Comment on above: Performed By: #### 0 0071 #### [facility] [address] [place] [address], [facility] Glucose [Mass/Vol] 97 mg/dL Normal 70-100 [facility] Comment on above: Performed By: #### 0 0071 #### [facility] [address] [place] [address], [facility] Potassium [Moles/Vol] 3.2 mmol/L Low 3.5-5.1 [facility] Comment on above: Performed By: #### 0 0071 #### [facility] [address] [place] [address], [place] Sodium [Moles/Vol] 139 mmol/L Normal 136-145 [facility] Comment on above: Performed By: #### 0 0071 #### [facility] [address] [place] [address], [facility] Urea nitrogen [Mass/Vol] 16 mg/dL Normal 7-25 [facility] Comment on above: Performed By: #### 0 0071 #### [facility] [address] [place] [address], [facility] CBC COMPLETE BLOOD COUNTon 11 24- Erythrocyte distribution width (RBC) [Ratio] 12.4 % Normal 11.5-15.0 [facility] Comment on above: Performed By: #### 5 0608 #### [facility] [address] [place] [address], [facility] Hematocrit (Bld) [Volume fraction] 47.3 % High 36.0-45.0 [facility] Comment on above: Performed By: #### 5 0608 #### [facility] [address] [place] [address], [facility] Hemoglobin (Bld) [Mass/Vol] 15.7 g/dL High 12.0-15.0 [facility] Comment on above: Performed By: #### 5 0608 #### [facility] [address] [place] [address], [facility] MCH (RBC) [Entitic mass] 28.9 pg Normal 27.0-33.0 [facility] Comment on above: Performed By: #### 5 0608 #### [facility] [address] [place] [id number], [facility] MCHC (RBC) [Mass/Vol] 33.2 g/dL Normal 32.0-35.0 [facility] Comment on above: Performed By: #### 5 0608 #### [facility] [address] [place] [id number], [facility] MCV (RBC) [Entitic vol] 87.1 fL Normal 82.0-98.0 [facility] Comment on above: Performed By: #### 5 0608 #### [facility] [address] [facility] [place] [id number], [facility] Nucleated RBC/100 WBC (Bld) [Ratio] 0 % Normal 0-0 [facility] Comment on above: Performed By: #### 5 0608 #### [facility] [address] [place] [address], [facility] PLAT CNT 359 10*3/uL Normal 150-400 [facility] Comment on above: Performed By: #### 5 0608 #### [facility] [address] [place] [address], [facility] RBC (Bld) [#/Vol] 5.43 10*6/uL High 3.80-5.00 [facility] Comment on above: Performed By: #### 5 0608 #### [facility] [address] [place] [address], [facility] WBC (Bld) [#/Vol] 12.09 10*3/uL High 4.00-10.60 [facility] Comment on above: Performed By: #### 5 0608 #### [facility] [address] [facility]. [address] PROTHROMBIN TIMEon 9 INR Coag (PPP) [Relative time] 1.17 {INR} High 0.91-1.16 [facility] Comment on above: Order Comment: No: D [...] 1995;108:231S-246S. Performed By: #### 5 6101 #### [facility] [address] [facility]. [address] PT Coag (PPP) [Time] 15.0 s High 12.3-14.8 [facility] Comment on above: Order Comment: No: D o not add to previous draw Result Comment: ALL RESULTS MUST BE INTERPRETED WITH RESPECT TO BLOOD DRAWING ARTIFACT OR DILUTION ERROR OF ANTICOAGULANT AT THE TIME OF SAMPLING. Performed By: #### 5 6101 #### [facility] [address] *MRSA/MSSA DNA NASALon 06-17 *MRSA/MSSA DNA NASAL Clinical Report: (D) Specimen: NASAL SWAB Collected: 06/17/2019 11:45 Status: Final Last Updated: 06/17/2019 18:47 MSSA DNA (Final) Negative MRSA DNA (Final) Methicillin Resistant Staphylococcus aureus DNA Detected Normal [facility] Comment on above: Performed By: #### 3 1595 #### [facility] [address] [place] [address], [facility] APTTon 06-17-2019 aPTT Coag (Bld) [Time] 30.5 s Normal 25.0-35.0 [facility] Comment on above: Result Comment: ALL RESULTS [...] THIS PURPOSE. Performed By: #### 5 7307, [id number] #### [facility] [address] [facility] [place] [address], [facility] BASIC METABOLIC PANELon 05-24 Calcium [Mass/Vol] 9.4 mg/dL Normal 8.6-10.3 [facility] Comment on above: Performed By: #### 0 0071 #### [facility] [address] [facility] [place] [address], [facility] Chloride [Moles/Vol] 102 mmol/L Normal 98-107 [facility] Comment on above: Performed By: #### 0 0071 #### [facility] [address] [facility] [place] [address], [place] CO2 [Moles/Vol] 28 mmol/L Normal 21-31 [facility] Comment on above: Performed By: #### 0 0071 #### [facility] [address] [place] [address], [facility] Creatinine [Mass/Vol] 0.56 mg/dL Low 0.60-1.20 [facility] Comment on above: Performed By: #### 0 0071 #### [facility] [address] [place] [address], [place] GFR/1.73 sq M predicted among blacks MDRD (S/P/Bld) [Vol rate/Area] mL/min/{1.73_m2} Normal >60 [facility] Comment on above: Performed By: #### 0 0071 #### [facility] [address] [place] [address], [place] GFR/1.73 sq M predicted among non-blacks MDRD (S/P/Bld) [Vol rate/Area] mL/min/{1.73_m2} Normal >60 [facility] Comment on above: Performed By: #### 0 0071 #### [facility] [address] [place] [address], [place] Glucose [Mass/Vol] 93 mg/dL Normal 70-100 [facility] Comment on above: Performed By: #### 0 0071 #### [facility] [address] [place] [address], [place] Potassium [Moles/Vol] 3.3 mmol/L Low 3.5-5.1 [facility] Comment on above: Performed By: #### 0 0071 #### [facility] [address] [place] [address], [place] Sodium [Moles/Vol] 139 mmol/L Normal 136-145 [facility] Comment on above: Performed By: #### 0 0071 #### [facility] [address] [place] [address], [place] Urea nitrogen [Mass/Vol] 17 mg/dL Normal 7-25 [facility] Comment on above: Performed By: #### 0 0071 #### [facility] [address] [place] [address], [place] CBC COMPLETE BLOOD COUNTon 0 06-17-2019 Erythrocyte distribution width (RBC) [Ratio] 12.7 % Normal 11.5-15.0 [facility] Comment on above: Performed By: #### 5 0608 #### [facility] [address] [place] [address], [facility] Hematocrit (Bld) [Volume fraction] 45.3 % High 36.0-45.0 [facility] Comment on above: Performed By: #### 5 0608 #### [facility] [address] [facility] [place] [address], [facility] Hemoglobin (Bld) [Mass/Vol] 15.4 g/dL High 12.0-15.0 [facility] Comment on above: Performed By: #### 5 0608 #### [facility] [address] [facility] [place] [address], [facility] MCH (RBC) [Entitic mass] 29.1 pg Normal 27.0-33.0 [facility] Comment on above: Performed By: #### 5 0608 #### [facility] [address] [facility] [address], [facility] MCHC (RBC) [Mass/Vol] 34.0 g/dL Normal 32.0-35.0 [facility] Comment on above: Performed By: #### 5 0608 #### [facility] [address] [facility] [place] [address], [facility] MCV (RBC) [Entitic vol] 85.5 fL Normal 82.0-98.0 [facility] Comment on above: Performed By: #### 5 0608 #### [facility] [address] [facility] [place] [address], [facility] Nucleated RBC/100 WBC (Bld) [Ratio] 0 % Normal 0-0 [facility] Comment on above: Performed By: #### 5 0608 #### [facility] [address] [facility] [place] [address], [facility] PLAT CNT 417 10*3/uL High 150-400 [facility] Comment on above: Performed By: #### 5 0608 #### [facility] [address] [facility] [place] [address], [facility] RBC (Bld) [#/Vol] 5.30 10*6/uL High 3.80-5.00 [facility] Comment on above: Performed By: #### 5 0608 #### [facility] [address] [facility] [place] [address], [facility] WBC (Bld) [#/Vol] 10.62 10*3/uL High 4.00-10.60 [facility] Comment on above: Performed By: #### 5 0608 #### [address] CHEST AND LATERALon 06-17-20 19 CHEST AND LATERAL [facility] Department of Radiology [address] [place] [address] Patient Name: DEEDEE STANLEY : 1970 Sex: [...] unremarkable. IMPRESSION: No acute cardiopulmonary process. Approved by:Italia Knapp on 06/17/2019 1:38 PM EDT. I, Madhav Harley, have reviewed the images and report and concur with these findings. Electronically signed by:Madhav Harley. Transcribed by: [email or web address], User Resident: ITALIA [email or web address] Electronically Signed by: MADHAV HARLEY @ 06/17/2019 04:12 PM I personally read this/these film(s) with this resident Normal [facility] Comment on above: Order Comment: H/O a trial fibrillation PROTHROMBIN TIMEon 9 INR Coag (PPP) [Relative time] 0.97 {INR} Normal 0.91-1.16 [facility] Comment on above: Result Comment: ACCC P [...] RANGE. CHEST 1995;108:231S-246S. Performed By: #### 5 7307, 57923 #### [facility] [address] [place] [address], [facility] PT Coag (PPP) [Time] 12.9 s Normal 12.3-14.8 [facility] Comment on above: Result Comment: ALL RESULTS MUST BE INTERPRETED WITH RESPECT TO BLOOD DRAWING ARTIFACT OR DILUTION ERROR OF ANTICOAGULANT AT THE TIME OF SAMPLING. Performed By: #### 5 7307, 16501 #### [facility] [address] [place] [address], [facility] TYPE AND SCREENon 06-17-2019 ABO INTERPRETATION A Normal [facility] Comment on above: Performed By: #### 6 2586 #### [facility] [address] [place] [address], [place] RH INTERPRETATION Positive Normal The [facility] Comment on above: Performed By: #### 6 2586 #### [facility] [address] [place] [address], [facility] Basic Metabolic Panelon 04-0 Calcium mass conc 9.4 mg/dL Normal 8.2-10.2 [facility] Comment on above: Performed By: #### C BC, PT, PTT, BMP #### [facility] [address] [place] [id number] [place] Chloride molar conc 101 mmol/L Normal 95-114 [facility] Comment on above: Performed By: #### C BC, PT, PTT, BMP #### [facility] [address] [place] [address] [place] CO2 molar conc 24.1 mmol/L Normal 22.0-30.0 [facility] Comment on above: Performed By: #### C BC, PT, PTT, BMP #### [address] Creatinine mass conc 0.60 mg/dL Normal 0.44-1.03 [facility] Comment on above: Performed By: #### C BC, PT, PTT, BMP #### [address] Creatinine mass conc 90.7485929920 mg/dL Normal [facility] Comment on above: Result Comment: PERF ORMED BY: [place] [address] PATHOLOGIST COMPUTER TYPESETTER KEYLINER ARELIS MONTEMAYOR M.D. Performed By: #### C BC, PT, PTT, BMP #### [address] Estimated GFR ( Mehreen > 60 [facility] Comment on above: Result Comment: GFR estimated reference range: According to KDOQI guidelines, <60 ml/min/1.73m2 is sufficient to diagnose a patient with chronic kidney disease. Performed By: #### C BC, PT, PTT, BMP #### [address] Estimated GFR (Non- Am > 60 [facility] Comment on above: Performed By: #### C BC, PT, PTT, BMP #### [address] Glucose mass conc 116 mg/dL High 70-100 [facility] Comment on above: Result Comment: [place] om Glucose Reference Range is dependent on time and content of last meal. Glucose of more than 200 mg/dL in a nonstressed, ambulatory subject supports the diagnosis of Diabetes Mellitus. ADA recommended reference range Performed By: #### C BC, PT, PTT, BMP #### [address] Potassium molar conc 3.5 mmol/L Normal 3.5-5.1 [facility] Comment on above: Performed By: #### C BC, PT, PTT, BMP #### [place] [address] [place] Sodium molar conc 137 mmol/L Normal 136-146 [facility] Comment on above: Performed By: #### C BC, PT, PTT, BMP #### [facility] [address] Urea nitrogen mass conc 19 mg/dL Normal 9-23 [facility] Comment on above: Performed By: #### C BC, PT, PTT, BMP #### [facility] [address] abdomen pelvis wo conon 0 02-22-2019 CT abdomen pelvis wo con [facility] [place] [address] [place] [address] CT Scan Report Signed Patient: Todd Stanley MR#: [id number] : 1970 Acct:[id number] Age/Sex: 48 / F ADM Date: 02/22/19 Loc: ER Room: Type: [facility] ER Attending Dr: Ordering Provider: Italia Pruitt DO Date of Service: 02/22/19 CT/CT abdomen pelvis wo con: Urogenital-Female Copies to: Italia Pruitt DO CT ABDOMEN AND PELVIS WITHOUT CONTRAST [...] Nicole Freedman M.D.02/22/2019 3:21 PM Dictation Location: [facility] Transcribed By: [facility] 02/22/19 1521 Dictated By: Nicole Freedman MD 02/22/19 1514 Signed By: 02/22/19 1521 Normal [facility] Complete Blood Count Auto Di ffon 02-22-2019 Basophils #/vol (Bld) 0.1 10*3/uL Normal 0.0-0.2 [facility] Comment on above: Result Comment: PERF ORMED BY: [place] [address] PATHOLOGIST COMPUTER TYPESETTER KEYLINER ARELIS MONTEMAYOR M.D. Performed By: #### C BC, PT, PTT, BMP #### [facility] [address] [place] [address] [place] Basophils/100 WBC (Bld) 0.8 % Normal . [facility] Comment on above: Performed By: #### C BC, PT, PTT, BMP #### [facility] [address] [place] [address] [place] Eosinophils #/vol (Bld) 0.2 10*3/uL Normal 0.0-0.45 [facility] Comment on above: Performed By: #### C BC, PT, PTT, BMP #### [facility] [address] [place] [address] [place] Eosinophils/100 WBC (Bld) 2.1 % Normal . [facility] Comment on above: Performed By: #### C BC, PT, PTT, BMP #### [address] Erythrocyte distribution width Ratio (RBC) 13.9 % Normal 11.9-15.3 [facility] Comment on above: Performed By: #### C BC, PT, PTT, BMP #### [address] Hematocrit Volume Fraction (Bld) 39.6 % Normal 34.0-46.4 [facility] Comment on above: Performed By: #### C BC, PT, PTT, BMP #### [address] Hemoglobin mass conc (Bld) 13.2 g/dL Normal 11.8-15.4 [facility] Comment on above: Performed By: #### C BC, PT, PTT, BMP #### [address] Lymphocytes #/vol (Bld) 1.3 10*3/uL Normal 1.00-4.8 [facility] Comment on above: Performed By: #### C BC, PT, PTT, BMP #### [address] Lymphocytes/100 WBC (Bld) 11.5 % Normal . [facility] Comment on above: Performed By: #### C BC, PT, PTT, BMP #### [address] MCH Entitic mass (RBC) 28.5 pg Normal 24.7-34.3 [facility] Comment on above: Performed By: #### C BC, PT, PTT, BMP #### [address] MCH Entitic mass (RBC) 33.3 g/dL Normal 32.0-35.0 [facility] Comment on above: Performed By: #### C BC, PT, PTT, BMP #### [address] [address] [place] MCV Entitic volume (RBC) 85.6 fL Normal 80-100 [facility] Comment on above: Performed By: #### C BC, PT, PTT, BMP #### [facility] [address] Monocytes #/vol (Bld) 0.8 10*3/uL Normal 0.0-0.8 [facility] Comment on above: Performed By: #### C BC, PT, PTT, BMP #### [address] Monocytes/100 WBC (Bld) 7.0 % Normal . [facility] Comment on above: Performed By: #### C BC, PT, PTT, BMP #### [address] Neutrophils #/vol (Bld) 9.1 10*3/uL High 1.8-7.7 [facility] Comment on above: Performed By: #### C BC, PT, PTT, BMP #### [address] Neutrophils/100 WBC (Bld) 78.6 % Normal . [facility] Comment on above: Performed By: #### C BC, PT, PTT, BMP #### [address] Nucleated RBC/100 WBC Ratio (Bld) 0.0 % Normal 0-0.5 [facility] Comment on above: Performed By: #### C BC, PT, PTT, BMP #### [facility] [address] [place] [address] Platelet mean volume Entitic volume (Bld) 8.3 fL Normal 6.3-10.7 [facility] Comment on above: Performed By: #### C BC, PT, PTT, BMP #### [facility] [address] [place] [address] Platelets #/vol (Bld) 319 10*3/uL Normal 150-450 [facility] Comment on above: Performed By: #### C BC, PT, PTT, BMP #### [facility] [address] RBC #/vol (Bld) 4.62 10*6/uL Normal 3.60-5.00 [facility] Comment on above: Performed By: #### C BC, PT, PTT, BMP #### [facility] [address] WBC #/vol (Bld) 11.6 10*3/uL High 4.5-11.0 [facility] Comment on above: Performed By: #### C BC, PT, PTT, BMP #### [address] Dipstick and Microscopicon 0 02-22-2019 Appearance Nom (U) Turbid Critically abnormal Clear [facility] Comment on above: Order Comment: Name Collection Type: Clean-Voided Midstream Performed By: #### A DDONUAPLUS, CUU #### [address] Bacteria LM.HPF #/area (Urine sed) 1+ High None Seen [facility] Comment on above: Order Comment: Name Collection Type: Clean-Voided Midstream Result Comment: PERF ORMED BY: [place] [address] PATHOLOGIST COMPUTER TYPESETTER KEYLINER ARELIS MONTEMAYOR M.D. Performed By: #### A DDONUAPLUS, CUU #### [address] Bilirubin,Urine 2+ High Negative [facility] Comment on above: Order Comment: Name Collection Type: Clean-Voided Midstream Performed By: #### A DDONUAPLUS, CUU #### [address] Color Nom (U) Red Critically abnormal Yellow [facility] Comment on above: Order Comment: Name Collection Type: Clean-Voided Midstream Performed By: #### A DDONUAPLUS, CUU #### [address] Glucose Ql (U) 100 mg/dL High Normal [facility] Comment on above: Order Comment: Name Collection Type: Clean-Voided Midstream Performed By: #### A DDONUAPLUS, CUU #### [address] Ketones Ql (U) 1+ High Negative [facility] Comment on above: Order Comment: Name Collection Type: Clean-Voided Midstream Performed By: #### A DDONUAPLUS, CUU #### [address] Leukocyte esterase Test strip Ql (U) 3+ High Negative [facility] Comment on above: Order Comment: Name Collection Type: Clean-Voided Midstream Performed By: #### A DDONUAPLUS, CUU #### [address] Nitrite,Urine Positive High Negative [facility] Comment on above: Order Comment: Name Collection Type: Clean-Voided Midstream Performed By: #### A DDONUAPLUS, CUU #### [address] Occult Blood,Urine 3+ High Negative [facility] Comment on above: Order Comment: Name Collection Type: Clean-Voided Midstream Result Comment: PERF ORMED BY: [place] [address] PATHOLOGIST COMPUTER TYPESETTER KEYLINER ARELIS MONTEMAYOR M.D. Performed By: #### A DDONUAPLUS, CUU #### [address] pH (U) 6.5 [pH] Normal 5.0-9.0 [facility] Comment on above: Order Comment: Name Collection Type: Clean-Voided Midstream Performed By: #### A DDONUAPLUS, CUU #### [address] Protein mass conc (U) mg/dL High Negative [facility] Comment on above: Order Comment: Name Collection Type: Clean-Voided Midstream Performed By: #### A DDONUAPLUS, CUU #### [facility] [address] [place] [address] RBC LM.HPF #/area (Urine sed) Innumerable High 0-4 [facility] Comment on above: Order Comment: Name Collection Type: Clean-Voided Midstream Performed By: #### A DDONUAPLUS, CUU #### [address] Specificy [place],Urine 1.025 Normal 1.001-1.030 [facility] Comment on above: Order Comment: Name Collection Type: Clean-Voided Midstream Performed By: #### A DDONUAPLUS, CUU #### [address] Squamous Epithelial Cell,Urine 3-4 High 0-2 [facility] Comment on above: Order Comment: Name Collection Type: Clean-Voided Midstream Performed By: #### A DDONUAPLUS, CUU #### [address] Urobilinogen,Urine >=2 High Normal [facility] Comment on above: Order Comment: Name Collection Type: Clean-Voided Midstream Performed By: #### A DDONUAPLUS, CUU #### [address] WBC LM.HPF #/area (Urine sed) 10-19 High 0-4 [facility] Comment on above: Order Comment: Name Collection Type: Clean-Voided Midstream Performed By: #### A DDONUAPLUS, CUU #### [address] Partial Thromboplastin Timeo n 02-22-2019 aPTT Coag time (Bld) 34.2 s Normal 23.0-35.0 [facility] Comment on above: Result Comment: PERF ORMED BY: [place] [address] PATHOLOGIST COMPUTER TYPESETTER KEYLINER ARELIS MONTEMAYOR M.D. Performed By: #### C BC, PT, PTT, BMP #### [place] [address] [place] Prothrombin Time INRon 02-22 INR Coag RelTime (PPP) 1.2 {INR} Normal [facility] Comment on above: Result Comment: INR Therapeutic [...] #### C BC, PT, PTT, BMP #### [facility] [address] Prothrombin time (PT) Coag time (PPP) 14.3 s High 9.0-12.9 [facility] Comment on above: Performed By: #### C BC, PT, PTT, BMP #### [facility] [address] [place] [address] Urine Cultureon 02-22-2019 Bacteria identified Cx Nom (U) No Growth 2 Days PERFORMED BY: [place] [address] PATHOLOGIST COMPUTER TYPESETTER KEYLINER ARELIS MONTEMAYOR M.D. [facility] Comment on above: Performed By: #### A DDONUAPLUS, CUU #### [facility] [address] [place] [address] Vital Signs Date Time Vital Sign Value Performing Clinician Facility 09-08-2021 13:05-0400 Body height 157.48 cm Monica Garcia Other [employer] [facility] [email or web address] Other 09-08-2021 13:05-0400 Body mass index (BMI) [Ratio] 24.32 kg/m2 Monica Garcia Other [facility] Other 09-08-2021 13:05-0400 Body temperature 97.1 [degF] Mnoica Garcia Other [facility] Other 09-08-2021 13:05-0400 Body weight 60.33 kg Monica Garcia Other [facility] Other 09-08-2021 13:05-0400 Diastolic blood pressure 94 mm[Hg] Monica Garcia Other [facility] Other 09-08-2021 13:05-0400 Respiratory rate 18 /min Monica Garcia Other [facility] Other 09-08-2021 13:05-0400 SaO2% (BldA) [Mass fraction] 100 % Monica Garcia Other [facility] Other 09-08-2021 13:05-0400 Systolic blood pressure 144 mm[Hg] Monica Garcia Other [facility] Other Encounters Encounter Date Encounter Type Care Provider Facility Start: 10-10-2024 End: 10-10-2024 ambulatory KIRSTEN REIS [facility] Start: 07-12-2024 End: 07-12-2024 ambulatory DELFINA TAO [facility] Start: 06-09-2024 ambulatory [facility] Start: 06-09-2024 End: 06-09-2024 ambulatory [facility] Start: 06-02-2024 End: 06-02-2024 ambulatory [facility] Start: 05-24-2024 ambulatory [facility] Start: 05-12-2024 End: 05-12-2024 ambulatory STANLEY REYES [facility] Start: 05-10-2024 End: 05-10-2024 ambulatory [facility] Start: 12-24-2023 End: 12-25-2023 ambulatory Alexandria Fernandez Facility[facility] Start: 12-24-2023 End: 12-24-2023 Patient encounter procedure Alexandria Fernandez [place] Start: 04-02-2023 End: 04-03-2023 ambulatory CLEMENT PEREZ Facility: Start: 07-20-[address] AUNG GREY JR . Facility: Start: 07-10-2022 End: 07-11-[address] KASEY POP . Facility: Start: 09-08-2021 Office outpatient vi sit 15 minutes Monica Garcia [facility] Start: 11-02-2019 End: 11-03-2019 Evaluation and management of inpatient PROVIDER UNKNOWN Facility:[facility] Start: 06-17-2019 End: 06-18-2019 Patient encounter procedure SAMUELChiquita Cristel CHIANG Facility:[facility] Start: 02-22-2019 End: 02-22-2019 Emergency department patient visit Italia Pruitt Facility:[facility] Start: 12-29-2018 End: 12-30-2018 Patient encounter procedure JODI MEZA Facility:[facility] Procedures Date Procedure Procedure Detail Performing Clinician Start: 12-28-2021 Cystoscopy Alexandria Nelson pe Start: 11-07-2020 Cardiac pacemaker, d evice (physical object) Alexandria Morelose Start: 11-02-2019 OCCLUSION OF JOHN WIT H INTRALUM DEV, PERC APPROACH MARIO Gloria ROBLERO Start: 11-02-2019 ULTRASONOGRAPHY OF L EFT HEART, TRANSESOPHAGEAL JODI MEZA Start: 06-17-2019 Antibody screen JODI HIGGINS Comment on above: Performed By: #### 6 2586 #### [address] [place] [address], [facility] Start: 01-06-2019 Cystourethroscopy wi th dilation of urethral stricture Alexandria Jim section Alexandria Lamp e Hysterectomy Alexandria Jim Immunizations Immunization Date Immunization Notes Care Provider Mati owen 01-25-2021 SARS-CoV-2 (COVID-19 ) mRNA BNT-162b2 vax Alexandria Jim [facility] 01-04-2021 SARS-CoV-2 (COVID-19 ) mRNA BNT-162b2 vax Alexandria Jim [facility] NEGATED: Highlighted row has not occurred!11-11-2021 influenza virus vaccine, unspecified formulation Alexandria Fernandez [facility] Payers Date Payer Category Payer Self-pay 1970 Unknown [id number] [id number] 1970 Unknown [id number] 2.16.8 [id number] 1970 Unknown [id number] 2.16.8 [id number] 1970 Unknown [id number] 2.16.84 [id number] 1970 Unknown [id number] 2.16.84 [id number] 1970 Unknown [id number] 2.16.8 [id number] 1959 Self-pay [id number] 1959 Unknown [id number] Unknown [id number] Unknown [id number] 2.16.84 [id number] Social History Date Type Detail Facility Unknown if ever smoked [facility] Other Sex Assigned At [place] Start: 01-13-2022 Tobacco smoking status Never s moked tobacco (finding) [place] Tobacco smoking status Never [facility] Clinical Notes 09-08-2021 to 11-03-2024 Note Date & Type Note Facility 11-03-2024 Note Addendum created 11/15 by Rafael Miranda MD Attestation recorded in Intraprocedure, Flowsheet accepted, Intraprocedure Attestations filed [facility] 10-13-2024 Note PharmD Consult - Josi or Authorization Referring Provider: Dr. Clement Perez PharmD received consult from provider to assist with coverage of Xarelto. Pertinent PMH includes Afib. Patient does have insurance. Insurance type: Commercial Xarelto requires prior authorization. Completed on CoverMyMeds. Per CoverMyMeds: This request has been approved using information available on the patient's profile. CaseId:[id number];Status:Approved;Review Type:Prior Auth;Coverage Start Date:09/13/2024;Coverage End Date:10/13/2025 Please notify patient. Jennifer Dunne PharmD Cardiology Outpatient Clinical Pharmacist 10/13/24 [facility] 10-10-2024 Note [place] Cardiology - [facility] Subjective Todd Stanley is a 53 y.o. year old female patient being seen for Hypertension and Atrial Fibrillation (Pt is here for a three month follow up.) Patient Active Problem List Diagnosis Atrial fibrillation (CMS/HCC) Sinus node dysfunction (CMS/HCC) Paroxysmal supraventricular tachycardia (CMS/HCC) Benign hypertension Chronic pain Dyspnea Kidney stones Nocturia Pacemaker Pacemaker complications Pacemaker malfunction Persistent left superior vena cava Presence of Watchman left atrial appendage closure device Asymptomatic microscopic hematuria CVA (cerebral vascular accident) (CMS/HCC) Cardiomegaly Nonspecific intraventricular block Rheumatic tricuspid insufficiency HPI Patient has history of paroxysmal atrial fibrillation status post PVI ablation May 2024 and watchman placement October 2019 due to recurrent hematuria on anticoagulation, sinus node dysfunction, s/p permanent management pacemaker implantation initially in 2007, GEN change 2014, chronic pain at the pacemaker site required to extract the old pacemaker and insert it Sub muscular on the left side in 2014 in [facility] and she had generator change 05/18/2023, CVA 2018, hypertension, and persistent left superior vena cava. She is here today for follow-up visit. She is complaining of left-sided chest pain she describes as intermittent ache not related to exertion, can occur anytime and last usually 5 to 10 seconds, she denies associated palpitation per se. She denies associated dizziness, it has been occurring every day for the last week. She admits that she is under a lot of stress. On the other hand she is physically very active and that does not cause her any specific symptoms such as chest pain or shortness of breath. She does not drink any coffee. Every once a while she drinks cup of tea. She denies alcohol or smoking. She drinks good amount of water. Her mother had CAD in her 50s and later she had CABG in her 80s. Patient denies any GI problem. ROS All systems were reviewed and they were negative except for the positive findings noted above in the history Past Medical History: Diagnosis Date Abnormal ECG Arrhythmia Atrial fibrillation (CMS/HCC) Hypertension Kidney stones Myalgia Sinus node dysfunction (CMS/HCC) Past Surgical History: Procedure Laterality Date ABLATION OF DYSRHYTHMIC FOCUS CARDIAC CATHETERIZATION SECTION, CLASSIC INSERT / REPLACE / REMOVE PACEMAKER 2007 OTHER SURGICAL HISTORY watchman device placed Family History Problem Relation Name Age of Onset Bilateral breast cancer Other Diabetes Other Coronary artery disease Other Hypertension Other Social History Tobacco Use Smoking status: Never Passive exposure: Never Smokeless tobacco: Never Substance Use Topics Alcohol use: Not Currently Drug use: Never Allergies No Known Allergies Medications Current Outpatient Medications: dilTIAZem CD (Cardizem CD) 120 mg 24 hr capsule, TAKE 1 CAPSULE TWICE A DAY, Disp: 60 capsule, Rfl: 0 lisinopril 5 mg tablet, TAKE 1 TABLET DAILY, Disp: 90 tablet, Rfl: 3 rivaroxaban (Xarelto) 20 mg tablet, Take 1 tablet (20 mg) by mouth daily with evening meal. Take with food., Disp: 30 tablet, Rfl: 2 Objective Visit Vitals BP 118/80 Pulse 60 Ht 1.575 m (5' 2 ) Wt 59.4 kg (131 lb) SpO2 93% BMI 23.96 kg/m??? OB Status Postmenopausal Smoking Status Never BSA 1.61 m??? Physical exam: GENERAL: alert and oriented x3, well developed, in no acute distress. HEAD: atraumatic, normocephalic. EYES: EVANGELINA, EOMI. NECK: trachea midline, no JVD present, no carotid bruits present. CARDIAC: S1, S2 present. RRR. No murmur, rubs, or gallops. RESPIRATORY: CTAB, no increased effort of breathing, no rales, rhonchi, or wheezing. ABDOMEN: soft, nontender, nondistended. EXTREMITIES: no lower extremity edema. No rash/skin discoloration present. NEURO: strength/sensation equal and symmetric in bilateral upper and lower extremities. PSYCH: appropriate mood, affect, and judgement. Recent Labs Labs 07/08/2024 White blood count 7.8, hemoglobin 15.2, hematocrit 43.4, platelets 347 Sodium 142, potassium 3.9, BUN 18, creatinine 0.72, GFR above 60, glucose 98, calcium 9.5 Total bilirubin 0.9, AST 14, ALT 24, alk phos 90, total protein 7, albumin 4.2 Triglycerides 73, cholesterol 182, LDL 101, HDL 67 TSH 1.137 Imaging and other tests EKG: Today 10/10/2024 showed atrial pacing and ventricular sensing with PACs triplet, left anterior fascicular block.NS T changes Echo: 07/22/2024 at [facility] Stress test: Cardiac cath: EP procedure 06/09/2024 NAME OF THE PROCEDURE: Pulmonary Vein Isolation and Comprehensive EP study. INDICATIONS FOR PROCEDURE: 1. Early Persistent atrial fibrillation. FLUROSCOPY: 4.9minutes/ 21mGy. EBL: 15cc SPECIMEN REMOVED: None PROCEDURES PERFORMED: 1. Sonosite guided venous (more content not included)... [facility] 07-12-2024 Note Pt is here for follo w up from afib ablation. Review of Systems Musculoskeletal: Positive for myalgias. All other systems reviewed and are negative. [facility] 07-12-2024 Note Cardiovascular Medic ine [facility] SUBJECTIVE Chief Complaint Patient presents with Atrial [...] Final QTC CALCULATION(BAZETT) 06/09/2024 495 ms Final R-[place] 06/09/2024 74 degrees Final T Wave [place] 06/09/2024 -85 degrees Final Protime 06/09/2024 12.9 12.3 - 14.8 Seconds Final INR 06/09/2024 0.97 0.90 - 1.10 Final Glucose POC 06/09/2024 104 70 - 105 mg/dL Final Ventricular Rate 06/09/2024 69 BPM Final QRS DURATION 06/09/2024 92 ms Final QT Interval 06/09/2024 464 ms Final QTC CALCULATION(BAZETT) 06/09/2024 497 ms Final R-[place] 06/09/2024 -58 degrees Final T Wave [place] 06/09/2024 87 degrees Final POCT ACT 06/09/2024 400 (A) 82 - 152 seconds In process QC Pass/Fail 06/09/2024 Passed In process QC LOT # 06/09/2024 18 In process QC (more content not included)... [facility] 06-09-2024 Note ATRIAL FIBRILLATION ABLATION PROCEDURE NOTE [...] were placed. Esophagus was mapped using the [employer] 3D mapping software and noted to be [...] transseptal was perform (more content not included)... [facility] 06-09-2024 Note Patient: Todd palomares Procedure Summary Date: 06/09/24 Room / Location: [facility] EP / [facility] (Cath) Anesthesia Start: 831 [...] and follow verbal commands throughout transport process [facility] 06-09-2024 Note Patient: Todd palomares Procedure Summary Date: 06/09/24 Room / Location: [facility] / [facility] (Cath) Anesthesia Start: 831 [...] per anesthesia protocol. No notable events documented. [facility] 06-09-2024 Note Airway Date/Time: 06/09/2024 8:52 AM Urgency: elective Airway not difficult General Information and Staff Patient location during procedure: OR Anesthesiologist: Rafael Miranda MD Resident/MANAGER TECHNICAL/CAA: Iliana Gandara MD Performed: other anesthesia staff [...] 1 Number of other approaches attempted: 0 [facility] 06-09-2024 Note Arterial Line: Date/Time: 06/09/2024 7:35 [...] mL - 06/09/2024 7:35:00 AM Staffing Performed: resident/MANAGER TECHNICAL/CAA Anesthesiologist: Rafael Miranda MD Resident/MANAGER TECHNICAL: Iliana Gandara MD Performed by: Iliana Gandara MD Authorized by: Iliana Gandara MD [facility] 06-09-2024 Note Patient: Todd palomares Procedure Information Date/Time: 06/09/24 0800 Procedure: Ablation a-fib paroxysmal Location: [facility] EP / [facility] (Cath) Providers: Clement Perez [...] Plan discussed with attending. Additional Equipment Requests [facility] 05-24-2024 Note Date of Telehealth V isit: 05/24/24 The patient was notified that using 3rd republican telecommunication application (e.g., [employer]) is not HIPPA compliant and may carry some privacy risks. Yes The visit was conducted [id number] with the use of audio and video technology [email or web address] between patient and provider for a virtual visit. Verbal consent to provide and bill this service was obtained on 05/24/24 . No signature was obtained due to the COVID-19 pandemic. Patient Location: Patient Home I spent 12 minutes of total time on the day of the visit. This time was spent preparing for the visit, obtaining and reviewing any outside history/data, taking a history, performing an exam/evaluation, counseling and educating patient/family about the diagnosis and plan, performing medical decision making, referring to and communicating with other health care referrals, independently interpreting results and documenting in the EMR, and coordinating care. Please see the additional documentation in this note for specific details. [place] Electrophysiology Consult Note Reason for visit: s/p submuscular gen change dual chmaber ppm 05/18/23 Pt to discuss about Afib ablation. 03/24/23 HPI: Todd Stanley is a 53 [...] Dr DAVILA. Now her device has approached AHNNA. The current device is submuscular. She has [employer] scientific device with 96% A pacing and [...] Intimate Partner Violence: Not At Risk (06/08/2023) [place] Safety & Environment Fear of Current or Ex-Partner: No Emotionally Abused: No Physically Abused: No Sexually Abused: No Physically or Sexually Abused: Not on file Depression: Not at risk (06/08/2023) PHQ-2 PHQ-2 Score: 0 Housing Stability: Not on file Utilities: Not on file Allergies: No Known Allergies Weight: No weight available Visit Vitals OB Status Postmenopausal Smoking Status Never Meds: Current Outpatient Medications on File Prior to Visit Medication Sig Dispense Refill dilTIAZem CD (Cardizem CD) 120 mg 24 hr capsule TAKE 1 CAPSULE TWICE A DAY 60 capsule 0 No current facility-administered medications on file prior to visit. ROS: Review of Systems Constitutional: Positive for malaise/fatigue. All other systems reviewed and are negative. Physical Exam: [facility] Labs: @LABRESULTS@ No results found for: CHOLESTEROL TOTAL , HDL , LDL CALC , LDL DIRECT , TRIGLYCERIDES , TSH , T3 TOTAL , T4 TOTAL , THYROID PEROXIDASE AB , BNP EKG: Encounter Date: 06/09/24 ECG 12 lead Result Value Ventricular Rate 69 QRS DURATION 92 QT Interval 464 QTC CALCULATION(BAZETT) 497 R-[place] -58 T Wave [place] 87 Impression Atrial pacemaker with premature supraventricular complexes Left anterior fascicular block Nonspecific ST and T wave abnormality Prolonged QT Abnormal ECG When compared with ECG of 09-JUN-2024 07:18, Electronic ventricular pacemaker no longer seen Confirmed by Erin RAMIRES, L.S. (2) on 06/09/2024 2:25:58 PM Echo: Stress test: Coronary angiogram: @CATH@ Diagnostic Imaging: No images are attached to the encounter. Assessment and Plan: - AF: Patient has opted to have Afib ablation. - SND s/p Dual chamber PPM in left submuscular site with underlying PLSVC: [place] discomfort in the device site has markedly decreased. there is no evidence of infection or discharge. - PLSVC - AF s/p WATCHMAN Afib ablation would require placement of multiple catheters in the heart under moderate sedation which will include diagnostic catheters, ICE catheters and ablation catheters. The risk of the procedures can be described as minor and major min (more content not included)... [facility] 05-12-2024 Note Device interrogation q 6 months [facility] 05-12-2024 Note stable [facility] 05-12-2024 Note Continue lisinopril and Diltiazem- provider asked pt to check b/p at home 1-2 times/day and goal is < 130/80- she voiced understanding that staff will call her in 1-2 weeks to review b/p log and she is to call office. [facility] 05-12-2024 Note Stable s/p SVT Ablat ion 2009- remains on diltiazem. [facility] 05-12-2024 Note Stable s/p PPM implantation [facility] 05-12-2024 Note Patient here for 1 y ear follow up sinus node dysfunction s/p PPM and afib s/p Watchman implant. Her device was interrogated in the office 2 days ago. She denies chest pain, SOB, palpitations, and lightheadedness/syncope. Review of Systems Musculoskeletal: Positive for myalgias. All other systems reviewed and are negative. [facility] 05-12-2024 Note [facility] CARDIOLOGY PROGR ESS NOTE [...] with Dr Perez- possible a fib abalation. [facility] 05-12-2024 Note - AF s/p WATCHMAN - no anticoagulation Continue diltiazem, noted A fib on PPM device interrogation and d/w pt about possible a fib ablation, provided pt information via pamphlet about a fib ablation, and she voiced understanding and agreement- Dr Jian CHRISTIANSON updated. During A fib episodes she is not in RVR and rate remains controlled, she denied any symptoms [facility] 09-08-2021 Evaluation note Encounter Date Diagnosis Assessment Notes Aug, Herpes zoster without complication (ICD-10 - B02.9) Drink plenty fluids, get plenty of rest. Continue home medications as prescribed. Take the Valtrex as prescribed until gone. Consider using [id number] er capsaicin cream to the rash for pain. Follow-up with your family physician if no improvement in 2 to 3 days. [facility] Other Evaluation + Plan note No data available for this section [place] Narrative - Reported* Type Description Date Medical History stroke Medical History heart disease Medical History htn Surgical History hysterectomy Surgical History pacemaker Surgical History watchman Hospitalization History see above Hospitalization History stroke 2019 [facility] Other Hospital Discharge instructions No data available for this section [place] No data available for this section [place] Summary Purpose Family History No Family History Records FoundNo Family History Records FoundNo Family History Records Found No data available for this section No Family History Records FoundNo Family History Records Found Advance Directives No Advanced Directives Records FoundNo Advanced Directives Records FoundNo Advanced Directives Records FoundNo Advanced Directives Records FoundNo Advanced Directives Records Found Hospital Course Note MR#: [id number] [facility] Pt. Name: Deedee Stanley Admitted: 11/02/2019 Discharged: 11/03/2019 Date of : 1970 Physician: Mario Roblero M.D. DISCHARGE SUMMARY PRIMARY DIAGNOSIS: Atrial fibrillation. [...] a shared care decision making with her continuous towel roller, Dr. Ian Bruce, they both agreed that she should undergo the Watchman left atrial appendage closure procedure as an alternative to long-ter (more content not included)... Additional Source Comments INFORMATION SOURCE (unrecogn ized section and content) DATE CREATED AUTHOR 02/26/2019 [facility] DATE CREATED AUTHOR AUTHOR'S ORGANIZ ATION 12/20/2019 [facility] DATE CREATED AUTHOR AUTHOR'S ORGANIZ ATION 04/05/2023 [facility] DATE CREATED AUTHOR AUTHOR'S ORGANIZ ATION 12/28/2023 [facility] DATE CREATED AUTHOR AUTHOR'S ORGANIZ ATION 11/06/2024 [facility] REASON FOR VISIT (unrecogniz ed section and content) RASH ON BACK OF NECK FOR 3 D AYS Patient Care team informatio n (unrecognized section and content) Personnel Name: Kasey Pop MD Address: Address: [address] [place] [address] FOR RECORDS PERTAINING TO PATIENTS WHO ARE [...] BE BASED ON THE PRIMARY CLINICAL RECORDS. [facility] [employer] [facility]. provides no warranty or guarantee of the accuracy or completeness of information in this document.
[2024-12-05] MEDS: REGADENOSON 0.4 MG/5 ML SYRINGE IV (10:39)
[2024-12-05] MEDS: AMINOPHYLLINE 250 MG/10 ML VIAL 50 MG IVP (10:39)
--- NOTE | 2024-12-05 10:39 | PC.NURSE ---
Nursing Note Cardiac Stress Test Reviewed: Medication, allergies and patient history reviewed. Stress Test: [ x] Patient tolerated stress test well. [ ] Patient unable to tolerate walking on treadmill. Switched to Lexiscan stress test. [ ] No chest pain noted per patient [ ] Chest pain that resolved prior to leaving stress lab. [ ] No dyspnea noted. [ x] Dyspnea that resolved prior to leaving stress lab. x[ ] Patient left stress lab asymptomatic and hemodynamically stable. [ ] Patient taken to the Emergency Room due to non-resolving symptoms following stress test. [ ] Patient achieved target heart rate. [ ] Patient unable to achieve target heart rate. [ x] Aminophylline administered as reversal agent to Lexiscan (Regadenoson). [ ] Nitro administered.
== END 2024-12-05 08:40 | disposition home or self-care (01) ==
LOC: NM 08:39
PROVIDERS: PCP Family Medicine; Visit Provider Internal Medicine Cardiovascular Disease
DX: R07.89 Other chest pain (principal); R06.09 Other forms of dyspnea
CPT/HCPCS: 78452; 93017; A9500; J0280; J2785

== ENCOUNTER 2025-01-23 19:05 | Outpatient (RCR) | payer OTHER, SELFPAY ==
[2025-01-23] MEDS: 0.9 % SODIUM CHLORIDE 1,000 ML 1000 ML IV (19:39)
[2025-01-23 19:42] VITALS: BP 116/75; PULSE 68; TEMP 36.8; O2SAT 100
== END 2025-01-23 21:10 | disposition home or self-care (01) ==
LOC: INF 19:05
PROVIDERS: PCP Family Medicine; Visit Provider Family Medicine
DX: E86.0 Dehydration (principal)
CPT/HCPCS: 96360

== ENCOUNTER 2025-01-25 12:18 | Observation (INO) | payer OTHER, SELFPAY ==
[2025-01-25] VITALS (23 sets, daily range): BP systolic 132–159; BP diastolic 75–94; PULSE 60–74; TEMP 36.5–37.2; O2SAT 95–100; BMI 23.4
--- NOTE | 2025-01-25 | OP_ITS ---
OPERATION DATE: 01/25/2025 PREOPERATIVE DIAGNOSIS: 1. Hydronephrosis with left ureteral calculus. 2. Left flank pain. POSTOPERATIVE DIAGNOSIS: 1. Hydronephrosis with left ureteral calculus. 2. Left flank pain. PROCEDURE: 1. Cystoscopy. 2. Left retrograde pyelogram. 3. Left ureteroscopy. 4. Holmium laser lithotripsy and basket extraction left ureteral calculus. 5. Placement left double J string stent under fluoroscopic guidance. SURGEON: Ren Hernandez M.D. COMPLICATIONS: None. ANESTHESIA: Dr. Calzada with a general. INDICATIONS: Ms. Enriquez is a 54-year-old female with a positive prior history of kidney stones, who presents with an obstructing left upper ureteral stone. She has failed to pass stones in the past and presents for operative intervention. She had been given the option of conservative management and wished to proceed. She understands the risks, benefits and details of the procedure, including the risk of bleeding, infection, need for additional procedural intervention, heart and lung problems under anesthesia. She does have the indwelling pacemaker. She understood the increased risk of anesthesia secondary to her comorbidities. She did receive preoperative antibiotics and does have sequential compression devices in place and functional to bilateral lower extremities throughout the case. PROCEDURE: She was then brought back to the operating room and a time out was performed. All were in agreement with the operative plan. She was identified appropriately. After the successful induction of general anesthesia, she was placed in the modified dorsolithotomy position and prepped in the usual fashion with Betadine solution. She was draped appropriately and 2% Xylocaine jelly placed per urethra. A well lubricated 22-Icelandic cystourethroscope with 30 degree lens was then passed into the bladder without difficulty. She does have a significant cystocele. No tumors, no stones or diverticula in the bladder itself. The left orifice was identified. The left ureteral catheter was placed, 6-Icelandic, and a retrograde pyelogram was performed. There was a hint of a filling defect in the upper ureter. The rest of the ureter was clear. Unable to identify whether she has other renal calculi, based on this study. A 0.35 Guidewire was then negotiated up the left ureter and the cystoscope was removed. Alongside the wire then, a semi-rigid ureteroscope was passed up the left ureter, and I was able to gain access all the way up to the stone. It was too large to simply basket extract. I utilized the 200 micron fiber, holmium laser, at about 10 soto of power, and the stone was ablated into three pieces. These pieces were subsequently basket extracted and sent to Pathology for evaluation. Repeat ureteroscopy took place, all the way up to the ureteropelvic junction, with no other stones identified. With the safety wire left in place then the ureteroscope was removed. The cystoscope was backloaded over the wire and a 4.9-Icelandic, 22-30 cm Dornier stent was then passed into the left kidney. The wire was removed and there was good curl within the left renal pelvis and the urinary bladder. The threads were left intact and taped to the patient?s right inner thigh. She tolerates it well and she was subsequently transferred to PACU in satisfactory condition, stable vital signs. Plan will be for transfer to the floor for postoperative management. This will be under the care of Dr. Pop, who will subsequently decide timing for discharge. I discussed all this with the patient?s family postoperatively. The plan will be for them to remove the string stent by simply removing the tape and pulling on the thread in about 3-4 days. She can subsequently see me in the office in about six with a NETO. KATHRYN
--- NOTE | 2025-01-25 13:07 | ED.ABDPAIN1 ---
HPI - Abdominal Pain General Chief Complaint: Abdominal Pain Stated Complaint: ABDOMINAL PAIN Time Seen by Provider: 01/25/25 12:19 Source: patient Mode of arrival: walk-in History of Present Illness HPI narrative: 54 year old female presents to the ED for left-sided abd pain. Onset was last night. Denies fever, chills, injury, urinary sx. She developed N/V last night. She did have N/V/D the weekend of 01/21/25 and 01/22/25. States she had IV fluids 01/23/25. She has not had diarrhea in 3-4 days. Related Data Home Medications ?Medication ?Instructions ?Recorded ?Confirmed diltiazem HCl 120 mg tablet 120 mg PO BID 01/25/25 01/25/25 (Cardizem) hyoscyamine sulfate 0.125 mg 0.125 mg PO Q6H PRN spasms 01/25/25 sublingual tablet lisinopril 5 mg tablet 5 mg PO DAILY 01/25/25 01/25/25 Allergies Allergy/AdvReac Type Severity Reaction Status Date / Time No Known Drug Allergies Allergy Verified 01/25/25 12:22 Review of Systems ROS Constitutional Denies: fever or chills Ears, nose, mouth, and throat Denies: throat pain Cardiovascular Denies: chest pain Respiratory Denies: shortness of breath Gastrointestinal Reports: abdominal pain, nausea, vomiting and diarrhea Genitourinary Denies: painful urination, urinary frequency or urinary urgency Musculoskeletal Denies: back pain or neck pain Integumentary/Breast Denies: rash Neurological Denies: headache PFSH PFS Medical History (Updated 01/25/25 @ 15:38 by Marge Conte RN) Transient ischemic attack (TIA) ?G45.9 - Transient cerebral ischemic attack, unspecified (ICD-10) Pacemaker ?Z95.0 - Presence of cardiac pacemaker (ICD-10) Presence of Watchman left atrial appendage closure device ?Z95.818 - Presence of other cardiac implants and grafts (ICD-10) Atrial fibrillation ?I48.91 - Unspecified atrial fibrillation (ICD-10) Social History Little interest or pleasure in doing things: not at all Feeling down, depressed, or hopeless: not at all Exam Constitutional Vital Signs, click to edit/add: Last Vital Signs Temp 98.0 F 01/25/25 12:25 Pulse 68 03/05/25 14:31 Resp 20 01/25/25 14:31 BP 145/86 H 01/25/25 14:31 Pulse Ox 100 01/25/25 14:31 O2 Del Method Room Air 01/25/25 14:31 Common normals: no apparent distress, oriented x3 and alert General appearance: cooperative HENMT Common normals: moist oral mucous membranes Eye Common normals: conjunctivae normal and no scleral icterus Neck & C-Spine Common normals: supple Chest Chest: symmetrical chest wall rise Respiratory Common normals: normal respiratory effort Effort & inspection: able to speak in complete sentences and symmetric chest movement Cardio Common normals: regular rate and regular rhythm GI Common normals: Normal to inspection, nondistended, normoactive bowel sounds present and soft to palpation Palpation: tender Details: LUQ Neuro Common normals: oriented x3 and moves all extremities Sensorium/orientation: awake and alert Speech: speech normal Course Vital Signs Vital signs: Vital Signs Temperature 98.0 F 01/25/25 12:25 Pulse Rate 61 01/25/25 12:25 Respiratory Rate 20 01/25/25 12:25 Blood Pressure 159/94 H 01/25/25 12:25 Pulse Oximetry 100 01/25/25 12:25 Oxygen Delivery Method Room Air 01/25/25 12:25 Temperature 98.0 F 01/25/25 12:25 Pulse Rate 68 01/25/25 14:31 Respiratory Rate 20 01/25/25 14:31 Blood Pressure 145/86 H 01/25/25 14:31 Pulse Oximetry 100 01/25/25 14:31 Oxygen Delivery Method Room Air 01/25/25 14:31 MDM - Abdominal Pain MDM Narrative Medical decision making narrative: WBC count was 11.7. Creatinine was 1.05; her baseline is around 0.70. CT scan showed a 5 mm stone mid left ureter resulting in hydronephrosis and hydroureter. Findings were discussed with the patient. She reported she has not been able to pass a kidney stone on her own; she typically has to have a surgical procedure. States she recalls her last known stone being 3 mm with her having a procedure for removal. I spoke with Dr. Hernandez for urology. The patient will go to the [facility]. He requested admission to the hospitalist. I spoke with Dr. Pop regarding the admission. Medical Records Attestation: I reviewed the patient's medical records. Lab Data Attestation: I reviewed the patient's lab results. Labs: Lab Results 01/25/25 01/25/25 Range/Units 12:36 14:30 WBC 11.7 H (4.0-11.0) 10^3/uL RBC 5.18 (4.20-5.40) 10^6/uL Hgb 15.4 (12.0-16.0) g/dL Hct 45.0 (36.0-48.0) % MCV 86.9 (81.0-99.0) fL MCH 29.7 (26.7-34.0) pg MCHC 34.2 (29.9-35.2) g/dL RDW 12.2 (11.0-15.0) % Plt Count 397 (150-450) 10^3/uL MPV 9.3 L (9.5-13.5) fL Neut % (Auto) 73.1 (43.0-75.0) % Lymph % (Auto) 15.5 L (20.5-60.0) % [place] % (Auto) 9.2 (1.7-12.0) % Eos % (Auto) 1.0 (0.9-7.0) % Baso % (Auto) 0.5 (0.2-2.0) % Neut # (Auto) 8.6 H (1.4-6.5) 10^3/uL Lymph # (Auto) 1.8 (1.2-3.8) 10^3/uL [place] # (Auto) 1.1 H (0.3-0.8) 10^3/uL Eos # (Auto) 0.1 (0.0-0.7) 10^3/uL Baso # (Auto) 0.1 (0.0-0.1) 10^3/uL Abs Immat Gran (auto) 0.08 H (0.00-0.03) 10^3/uL Imm/Tot Granulo (auto) 0.7 H (0.0-0.5) % Sodium 141 (136-145) mmol/L Potassium 3.9 (3.5-5.1) mmol/L Chloride 103 (98-107) mmol/L Carbon Dioxide 29.7 (21.0-32.0) mmol/L Anion Gap 12.2 BUN 14.0 (7.0-18.0) mg/dL Creatinine 1.05 H (0.55-1.02) mg/dL Est GFR ( Amer) >60 (>=60 mL/min/1.73m^2) Est GFR (Non-Af Amer) 55 L (>=60 mL/min/1.73m^2) BUN/Creatinine Ratio 13.3 Glucose 127 H (74-106) mg/dL Calcium 9.0 (8.5-10.1) mg/dL Total Bilirubin 0.5 (0.2-1.0) mg/dL AST 14 L (15-37) U/L ALT 38 (14-59) U/L Alkaline Phosphatase 76 (46-116) U/L Total Protein 6.8 (6.4-8.2) g/dL Albumin 3.5 (3.4-5.0) g/dL Globulin 3.3 g/dL Albumin/Globulin Ratio 1.1 Lipase 22.0 (16.0-77.0) U/L Urine Color Lt. yellow (YELLOW) Urine Clarity Clear (CLEAR) Urine pH 6.0 (5.0-9.0) Ur Specific [place] <=1.005 A (1.005-1.025) Urine Protein Negative (NEG/TRACE) mg/dL Urine Glucose (UA) Negative (NEGATIVE) mg/dL Urine Ketones Negative (NEGATIVE) mg/dL Urine Occult Blood Large A (NEGATIVE) Urine Nitrite Negative (NEGATIVE) Urine Bilirubin Negative (NEGATIVE) Urine Urobilinogen 0.2 (0.2-1.0) EU/dL Ur Leukocyte Esterase Negative (NEGATIVE) Urine RBC 10-20 A (0-2) #/HPF Urine WBC 0-2 A (NONE SEEN) #/HPF Ur Squamous Epith Cells Rare (NONE/RARE) #/LPF Urine Crystals None seen (None Seen) #/HPF Urine Bacteria Trace A (NONE SEEN) #/HPF Urine Casts None seen (NONE SEEN) #/LPF Urine Mucus None seen (NONE SEEN) Ur Culture Indicated? No Urine HCG, Qual Negative (NEGATIVE) Imaging Data CT scan - abdomen: Attestation: I have reviewed the pertinent imaging results. Radiologist's impression: 5 mm stone mid left ureter resulting in hydronephrosis and hydroureter. Discharge Plan Discharge Chief Complaint: Abdominal Pain Clinical Impression: Calculus of kidney, Calculus, ureteral Patient Disposition: Admitted as Observation Time of Disposition Decision: 15:17 Condition: Good
[2025-01-25 13:16] LABS: Basophils Absolute Auto 0.1 10^3/uL (0.0-0.1); Basophils Percent Auto 0.5 % (0.2-2.0); Eosinophils Absolute Auto 0.1 10^3/uL (0.0-0.7); Hemoglobin 15.4 g/dL (12.0-16.0); Immature Granulocytes Abs Auto 0.08 10^3/uL (0.00-0.03); Immature Granulocytes Pct Auto 0.7 % (0.0-0.5); Lymphocytes Absolute Auto 1.8 10^3/uL (1.2-3.8); Lymphocytes Percent Auto 15.5 % (20.5-60.0); Mean Corpuscular HGB Conc 34.2 g/dL (29.9-35.2); Mean Corpuscular Hemoglobin 29.7 pg (26.7-34.0); Mean Corpuscular Volume 86.9 fL (81.0-99.0); Mean Platelet Volume 9.3 fL (9.5-13.5); Monocytes Absolute Auto 1.1 10^3/uL (0.3-0.8); Monocytes Percent Auto 9.2 % (1.7-12.0); Neutrophils Absolute Auto 8.6 10^3/uL (1.4-6.5); Neutrophils Percent Auto 73.1 % (43.0-75.0); Platelet Count 397 10^3/uL (150-450); Red Blood Count 5.18 10^6/uL (4.20-5.40); Red Cell Distribution Width 12.2 % (11.0-15.0); White Blood Count 11.7 10^3/uL (4.0-11.0)
[2025-01-25] MEDS: ONDANSETRON PF 4 MG/2 ML VIAL IV (13:20)
[2025-01-25] MEDS: 0.9 % SODIUM CHLORIDE 1,000 ML 999 ML IV (13:20)
[2025-01-25] MEDS: FENTANYL CITRATE/PF 100 MCG/2 ML VIAL 50 MCG IV (13:20)
[2025-01-25] MEDS: FAMOTIDINE/PF 20 MG/2 ML VIAL IV (13:21)
[2025-01-25 13:42] LABS: Alanine Aminotransferase 38 U/L (14-59); Albumin Globulin Ratio 1.1; Albumin Level 3.5 g/dL (3.4-5.0); Alkaline Phosphatase 76 U/L (46-116); Anion Gap 12.2; Aspartate Amino Transferase 14 U/L (15-37); BUN Creatinine Ratio 13.3; Bilirubin Total 0.5 mg/dL (0.2-1.0); Carbon Dioxide 29.7 mmol/L (21.0-32.0); Chloride 103 mmol/L (98-107); Estimated GFR (African America >60 (>=60 mL/min/1.73m^2); Estimated GFR (Non-African Ame 55 (>=60 mL/min/1.73m^2); Globulin 3.3 g/dL; Glucose 127 mg/dL (74-106); Potassium 3.9 mmol/L (3.5-5.1); Sodium 141 mmol/L (136-145); Total Protein 6.8 g/dL (6.4-8.2)
[2025-01-25 14:40] LABS: Bilirubin Urine NEGATIVE (NEGATIVE); Blood Urine LARGE (NEGATIVE); Clarity Urine CLEAR (CLEAR); Color Urine LT. YELLOW (YELLOW); Glucose Urine UA NEGATIVE (NEGATIVE); Ketones Urine NEGATIVE (NEGATIVE); Leukocyte Esterase Urine NEGATIVE (NEGATIVE); Nitrite Urine NEGATIVE (NEGATIVE); Protein Urine NEGATIVE (NEG/TRACE); Specific Gravity Urine <=1.005 (1.005-1.025); Urobilinogen Urine 0.2 EU/dL (0.2-1.0)
[2025-01-25 14:48] LABS: Urine Microscopic Indicated YES
[2025-01-25 15:00] LABS: Bacteria Urine TRACE #/HPF (NONE SEEN); Cast Seen? NONE SEEN #/LPF (NONE SEEN); Crystals Seen? None Seen #/HPF (None Seen); Mucus Urine NONE SEEN (NONE SEEN); Squamous Epithelial Cell Urine RARE #/LPF (NONE/RARE); Urine Culture Indicated NO; WBC Urine 0-2 #/HPF (NONE SEEN)
[2025-01-25 15:29] LABS: HCG Qualitative Urine* NEGATIVE (NEGATIVE); Internal Control Within Normal Limits
--- NOTE | 2025-01-25 15:29 | PC.NURSE ---
Surgery rn at bedside, informed of pt cardiac history
--- NOTE | 2025-01-25 15:32 | ECG_ITS ---
[facility] Test Date: 2025-01-25 Pat Name: HILDA STANLEY Department: Room: - Gender: Female Special Education Supervisor: : 1970 Requested By: [id number] Order Number: [id number] Reading MD: MARIO ROBLERO M.D. Measurements Intervals [place] Rate: 64 P: -[id number] MI: -77995 QRS: -54 QRSD: 88 T: 87 QT: 428 QTc: 438 Interpretive Statements Electronic atrial pacemaker with occasional supraventricular premature complexes and possible lead malsensing 2630 Left anterior fascicular block 4068 Nonspecific Twave abnormality 8003 Consistent with pulmonary disease 9150 abnormal ECG Compared to ECG 12/09/2021 11:26:22 ST (T wave) deviation no longer present Electronically Signed On 01-26-2025 6:39:47 EST by MARIO ROBLERO M.D.
--- NOTE | 2025-01-25 15:39 | PC.NURSE ---
surgery rn at bedside
[2025-01-25] MEDS: CEFAZOLIN SODIUM/DEXTROSE,ISO 2 GM/50 ML PIGGYBACK IV (16:15)
--- NOTE | 2025-01-25 16:21 | P.URCN_ITS ---
Urology - CN: HPI Date of Consult Requesting Physician: Gerry Hernandez MD Primary Care Provider: Jah Pop MD Consult Narrative Reason for consult IM: Obstructing kidney stone left mid ureter Narrative: Pain began earlier today, with severe nausea, vomiting, and flank pain. Was evaluated in ER, where CT shows 5 mm left mid ureteral stone. Urologic consult obtained. She denies fever, chills. Positive prior stone history, and has not passed stones on her own - even a 3-[address] Peoples previously operated on her and removed stones. Has had ureteral stents in the past. cc:: CC: Gerry Hernandez MD [facility] Medical History (Updated 01/25/25 @ 16:26 by Gerry Hernandez MD) Transient ischemic attack (TIA) ?G45.9 - Transient cerebral ischemic attack, unspecified (ICD-10) Pacemaker ?Z95.0 - Presence of cardiac pacemaker (ICD-10) Presence of Watchman left atrial appendage closure device ?Z95.818 - Presence of other cardiac implants and grafts (ICD-10) Atrial fibrillation ?I48.91 - Unspecified atrial fibrillation (ICD-10) Social History Little interest or pleasure in doing things: not at all Feeling down, depressed, or hopeless: not at all Meds Home Medications and Allergies Home Medications ?Medication ?Instructions ?Recorded ?Confirmed ?Type diltiazem HCl 120 mg tablet 120 mg PO BID 01/25/25 01/25/25 History (Cardizem) hyoscyamine sulfate 0.125 mg 0.125 mg PO Q6H PRN spasms 01/25/25 History sublingual tablet lisinopril 5 mg tablet 5 mg PO DAILY 01/25/25 01/25/25 History Allergies Allergy/AdvReac Type Severity Reaction Status Date / Time No Known Drug Allergies Allergy Verified 01/25/25 12:22 Exam Narrative Exam Narrative: HEENT normal Heart. RRR Lungs clear Abd: soft, minimal left flank tenderness. Negative peritoneal signs Normal external female genitalia LE: no edema Neuro: no deficits Constitutional Vital Signs, click to edit/add: Last Vital Signs Temp 98.0 F 01/25/25 12:25 Pulse 68 01/25/25 14:31 Resp 20 01/25/25 14:31 BP 145/86 H 01/25/25 14:31 Pulse Ox 100 01/25/25 14:31 O2 Del Method Room Air 01/25/25 14:31 Results Labs Labs: Short CBC 01/25/25 Range/Units 12:36 WBC 11.7 H (4.0-11.0) 10^3/uL Hgb 15.4 (12.0-16.0) g/dL Hct 45.0 (36.0-48.0) % Plt Count 397 (150-450) 10^3/uL BMP 01/25/25 12:36 Sodium 141 Potassium 3.9 Chloride 103 Carbon Dioxide 29.7 BUN 14.0 Creatinine 1.05 H Glucose 127 H Calcium 9.0 Liver Function 01/25/25 Range/Units 12:36 Total Bilirubin 0.5 (0.2-1.0) mg/dL AST 14 L (15-37) U/L ALT 38 (14-59) U/L Alkaline Phosphatase 76 (46-116) U/L Albumin 3.5 (3.4-5.0) g/dL Urine 01/25/25 Range/Units 14:30 Urine Color Lt. yellow (YELLOW) Urine Clarity Clear (CLEAR) Urine pH 6.0 (5.0-9.0) Ur Specific [place] <=1.005 A (1.005-1.025) Urine Protein Negative (NEG/TRACE) mg/dL Urine Glucose (UA) Negative (NEGATIVE) mg/dL Urology Assessment and Plan Assessment and Plan (1) Hydronephrosis with ureteral calculus: (2) Flank pain: Plan Options discussed. She has failed to pass stones on her own on the past and agrees with operative intervention. Risks of surgical intervention discussed. She understands this may be a staged procedure. Viewed labs, imaging studies, UA. Perhaps only stent placement can be accomplished if I cannot access the stone. She understands anesthesia risks, increased due to co-morbidities. Discussed case with Dr. Calzada. The patient wishes to proceed.
[2025-01-25] MEDS: IOHEXOL 240 MG/ML - 10 ML VIAL INJ (16:38)
[2025-01-25] MEDS: LACTATED RINGER'S SOLUTION 1,000 ML 50 ML IV (16:57)
[2025-01-25] MEDS: HYOSCYAMINE SULFATE 0.125 MG TAB.SUBL SL (17:32)
--- NOTE | 2025-01-25 19:37 | P.HP_ITS ---
HPI H&P: HPI History of Present Illness Chief complaint: ABDOMINAL PAIN Narrative: Patient seen and evaluated the emergency room earlier in the week, that what feels like more stomach flu, issue is as an outpatient was received a liter of fluids, however woke up this morning with acute onset of flank pains, unlike any pain she has had since she had her previous kidney stones. In ER found to have significantly large kidney stone unable to pass, patient taken to the operating room for extraction and stent placement Opioid HPI Opioid Management Most Recent Pain and Opioid Data: Last Pain Scale 6 01/25/25 18:07 01/25/25 Last Pain Assessment 01/25/25 18:07 Last MAR Pain Assessment 01/25/25 13:20 Last ORT Total Score 0 01/25/25 18:10 01/25/25 Last ORT Risk Category Low Risk 01/25/25 18:10 01/25/25 Review of Systems ROS Status of ROS 10 or more systems reviewed and unremark able except as noted in history and below PFSH PFS Medical History Transient ischemic attack (TIA) ?G45.9 - Transient cerebral ischemic attack, unspecified (ICD-10) Pacemaker ?Z95.0 - Presence of cardiac pacemaker (ICD-10) Presence of Watchman left atrial appendage closure device ?Z95.818 - Presence of other cardiac implants and grafts (ICD-10) Atrial fibrillation ?I48.91 - Unspecified atrial fibrillation (ICD-10) Surgical History H/O lithotripsy ?Z98.890 - Other specified postprocedural states (ICD-10) Hx of section ?Z98.891 - History of uterine scar from previous surgery (ICD-10) History of cardiac ablation for atrial fibrillation ?Z98.890 - Other specified postprocedural states (ICD-10) ?I48.91 - Unspecified atrial fibrillation (ICD-10) H/O: hysterectomy ?Z90.710 - Acquired absence of both cervix and uterus (ICD-10) Social History (Updated 01/25/25 @ 18:34 by Lisa Pinzon RN) Smoking status: Former smoker Second hand tobacco smoke exposure: No Non-prescribed substance use: denies use Highest level of school completed/degree received: Associate degree: academic program Little interest or pleasure in doing things: not at all Feeling down, depressed, or hopeless: not at all Meds Home Medications and Allergies Home Medications ?Medication ?Instructions ?Recorded ?Confirmed ?Type diltiazem HCl 120 mg tablet 120 mg PO BID 01/25/25 01/25/25 History (Cardizem) hyoscyamine sulfate 0.125 mg 0.125 mg PO Q6H PRN spasms 01/25/25 History sublingual tablet lisinopril 5 mg tablet 5 mg PO DAILY 01/25/25 01/25/25 History Allergies Allergy/AdvReac Type Severity Reaction Status Date / Time No Known Drug Allergies Allergy Verified 01/25/25 12:22 Exam Constitutional Vital Signs, click to edit/add: Last Vital Signs Temp 97.9 F 01/25/25 18:10 Pulse 61 01/25/25 18:10 Resp 18 01/25/25 18:10 BP 133/83 01/25/25 18:10 Pulse Ox 95 01/25/25 18:10 O2 Del Method Room Air 01/25/25 18:10 Documenting provider has reviewed patient's vital signs: yes Common normals: apparent distress (Mild to moderate painful distress) Respiratory Common normals: normal respiratory effort and no retractions Cardio Common normals: regular rate and regular rhythm GI Common normals: Normal to inspection, nondistended, normoactive bowel sounds present Results Labs Labs: Short CBC 01/25/25 Range/Units 12:36 WBC 11.7 H (4.0-11.0) 10^3/uL Hgb 15.4 (12.0-16.0) g/dL Hct 45.0 (36.0-48.0) % Plt Count 397 (150-450) 10^3/uL BMP 01/25/25 12:36 Sodium 141 Potassium 3.9 Chloride 103 Carbon Dioxide 29.7 BUN 14.0 Creatinine 1.05 H Glucose 127 H Calcium 9.0 Liver Function 01/25/25 Range/Units 12:36 Total Bilirubin 0.5 (0.2-1.0) mg/dL AST 14 L (15-37) U/L ALT 38 (14-59) U/L Alkaline Phosphatase 76 (46-116) U/L Albumin 3.5 (3.4-5.0) g/dL Urine 01/25/25 Range/Units 14:30 Urine Color Lt. yellow (YELLOW) Urine Clarity Clear (CLEAR) Urine pH 6.0 (5.0-9.0) Ur Specific [place] <=1.005 A (1.005-1.025) Urine Protein Negative (NEG/TRACE) mg/dL Urine Glucose (UA) Negative (NEGATIVE) mg/dL Assessment and Plan Assessment and Plan (1) Hydronephrosis with ureteral calculus: (2) Flank pain: Plan Admission findings: Over 5 mm size kidney stone with obstruction and mild elevation in creatinine consistent with dehydration Nephrolithiasis-Stone has been extracted but stent placed, significant pain still, will try patient on double dose of the Levsin and addition of Vesicare Dehydration-IV fluids overnight, repeat labs in a.m. Hypertension-Continue with home medications Admission status: Patient admitted overnight observation for status post nephrolithiasis with extraction but stent placement significant pain and dehydration prior to admission, medically necessary treatment likely to span 1 midnight, observation status
[2025-01-25] MEDS: LACTATED RINGER'S SOLUTION 1,000 ML 100 ML IV (21:21)
[2025-01-25] MEDS: HYOSCYAMINE SULFATE 0.125 MG TAB.SUBL 0.25 MG G-TUBE (21:22)
[2025-01-25] MEDS: DILTIAZEM HCL 60 MG TABLET 120 MG PO (21:22)
[2025-01-25] MEDS: TEMAZEPAM 15 MG CAPSULE PO (21:22)
[2025-01-26] MEDS: HYDROCODONE/ACET 5-325 MG TABLET 2 TAB PO ×2 (01:04→08:39)
[2025-01-26 04:39] VITALS: BP 118/75; PULSE 61; TEMP 36.6; O2SAT 95
[2025-01-26] MEDS: LACTATED RINGER'S SOLUTION 1,000 ML 100 ML IV (05:10)
[2025-01-26] MEDS: HYOSCYAMINE SULFATE 0.125 MG TAB.SUBL 0.25 MG G-TUBE ×2 (05:11→11:40)
[2025-01-26 05:25] LABS: Basophils Percent Auto 0.1 % (0.2-2.0); Hematocrit 40.3 % (36.0-48.0); Hemoglobin 13.9 g/dL (12.0-16.0); Immature Granulocytes Abs Auto 0.05 10^3/uL (0.00-0.03); Immature Granulocytes Pct Auto 0.5 % (0.0-0.5); Lymphocytes Percent Auto 10.2 % (20.5-60.0); Mean Corpuscular HGB Conc 34.5 g/dL (29.9-35.2); Mean Corpuscular Hemoglobin 29.6 pg (26.7-34.0); Mean Corpuscular Volume 85.9 fL (81.0-99.0); Mean Platelet Volume 9.2 fL (9.5-13.5); Monocytes Absolute Auto 0.5 10^3/uL (0.3-0.8); Monocytes Percent Auto 5.8 % (1.7-12.0); Neutrophils Absolute Auto 7.8 10^3/uL (1.4-6.5); Neutrophils Percent Auto 83.4 % (43.0-75.0); Platelet Count 342 10^3/uL (150-450); Red Blood Count 4.69 10^6/uL (4.20-5.40); Red Cell Distribution Width 12.2 % (11.0-15.0); White Blood Count 9.3 10^3/uL (4.0-11.0)
[2025-01-26 05:42] LABS: Anion Gap 14.2; BUN Creatinine Ratio 16.2; Calcium 8.6 mg/dL (8.5-10.1); Carbon Dioxide 25.6 mmol/L (21.0-32.0); Chloride 104 mmol/L (98-107); Estimated GFR (African America >60 (>=60 mL/min/1.73m^2); Estimated GFR (Non-African Ame >60 (>=60 mL/min/1.73m^2); Glucose 153 mg/dL (74-106); Potassium 3.8 mmol/L (3.5-5.1); Sodium 140 mmol/L (136-145)
--- NOTE | 2025-01-26 06:55 | P.DS_ITS ---
DS: Providers Provider Primary care physician: Jah Pop MD Consults: 01/25/25 17:44 Consult to Pharmacy Routine Consulting Provider: Reason for consultation: Please [place] me when Med [facility] is Updated Has provider been notified: No DS: Diagnosis Discharge Diagnosis (1) Hydronephrosis with ureteral calculus: (2) Flank pain: Plan Admission findings: Over 5 mm size kidney stone with obstruction and mild elevation in creatinine consistent with dehydration Nephrolithiasis-Stone has been extracted but stent placed, significant pain still, will try patient on double dose of the Levsin and addition of Vesicare Dehydration-IV fluids overnight, repeat labs in a.m. Hypertension-Continue with home medications Admission status: Patient admitted overnight observation for status post nephrolithiasis with extraction but stent placement significant pain and dehydration prior to admission, medically necessary treatment likely to span 1 midnight, observation status ? DS: Summary Hospital Course Hospital Course: Was seen and evaluated in the emergency room with acute onset of right flank pain. Found to have greater than 5 mm stone that was unable to pass, by the time I saw her she had already been taken to the operating room and stent placed, she was manage overnight for the dehydration. She did well overnight. Still having some significant pain with the stent. But she feels comfortable going home's will discharge patient home in improving condition. Medications see the. Follow-up with urology per protocol Status at Discharge Overall status at discharge: patient is not back to baseline Time Spent with Patient Time attestation: Total time spent providing and/or coordinating discharge services: Time spent: greater than 30 minutes Exam Constitutional Vital Signs, click to edit/add: Last Vital Signs Temp 97.8 F 01/26/25 04:39 Pulse 61 01/26/25 04:39 Resp 18 01/26/25 04:39 BP 118/75 01/26/25 04:39 Pulse Ox 95 01/26/25 04:39 O2 Del Method Room Air 01/26/25 04:39 Documenting provider has reviewed patient's vital signs: yes Common normals: apparent distress (Mild to moderate painful distress) Respiratory Common normals: normal respiratory effort and no retractions Cardio Common normals: regular rate and regular rhythm GI Common normals: Normal to inspection, nondistended, normoactive bowel sounds present DS: Data Data Completed and Pending Labs on day of discharge: Labs from last 24 hours 01/26/25 01/25/25 01/25/25 05:12 14:30 12:36 WBC 9.3 11.7 H RBC 4.69 5.18 Hgb 13.9 15.4 Hct 40.3 45.0 MCV 85.9 86.9 MCH 29.6 29.7 MCHC 34.5 34.2 RDW 12.2 12.2 Plt Count 342 397 MPV 9.2 L 9.3 L Neut % (Auto) 83.4 H 73.1 Lymph % (Auto) 10.2 L 15.5 L Johnson % (Auto) 5.8 9.2 Eos % (Auto) 0.0 L 1.0 Baso % (Auto) 0.1 L 0.5 Neut # (Auto) 7.8 H 8.6 H Lymph # (Auto) 1.0 L 1.8 Johnson # (Auto) 0.5 1.1 H Eos # (Auto) 0.0 0.1 Baso # (Auto) 0.0 0.1 Abs Immat Gran (auto) 0.05 H 0.08 H Imm/Tot Granulo (auto) 0.5 0.7 H Sodium 140 141 Potassium 3.8 3.9 Chloride 104 103 Carbon Dioxide 25.6 29.7 Anion Gap 14.2 12.2 BUN 12.0 14.0 Creatinine 0.74 1.05 H Est GFR ( Amer) >60 >60 Est GFR (Non-Af Amer) >60 55 L BUN/Creatinine Ratio 16.2 13.3 Glucose 153 H 127 H Calcium 8.6 9.0 Total Bilirubin 0.5 AST 14 L ALT 38 Alkaline Phosphatase 76 Total Protein 6.8 Albumin 3.5 Globulin 3.3 Albumin/Globulin Ratio 1.1 Lipase 22.0 Urine Color Lt. yellow Urine Clarity Clear Urine pH 6.0 Ur Specific [place] <=1.005 A Urine Protein Negative Urine Glucose (UA) Negative Urine Ketones Negative Urine Occult Blood Large A Urine Nitrite Negative Urine Bilirubin Negative Urine Urobilinogen 0.2 Ur Leukocyte Esterase Negative Urine RBC 10-20 A Urine WBC 0-2 A Ur Squamous Epith Cells Rare Urine Crystals None seen Urine Bacteria Trace A Urine Casts None seen Urine Mucus None seen Ur Culture Indicated? No Urine HCG, Qual Negative Discharge Plan Discharge Disposition: Home, Self-Care Condition: Good Discharge Medications: New hydrocodone-acetaminophen 5-325 mg Tablet 2 tab PO Q4H PRN (Reason: Pain Scale 7-10) Qty: 14 0RF hyoscyamine sulfate 0.125 mg Tablet, Sublingual 0.25 mg G-tube QID Qty: 20 0RF solifenacin 10 mg Tablet 10 mg PO DAILY Qty: 10 0RF Continued diltiazem HCl [Cardizem] 120 mg tablet 120 mg PO BID lisinopril 5 mg tablet 5 mg PO DAILY hyoscyamine sulfate 0.125 mg tablet, sublingual 0.125 mg PO Q6H PRN (Reason: spasms) Activity: increase activity as tolerated Diet: advance to your usual diet Print Language: [place] Patient Instructions: Hydrocodone/Acetaminophen (By mouth), Hyoscyamine (By mouth), Solifenacin (By mouth) (Vesicare), Abdominal Pain (DC), Hydronephrosis (DC), Ureteral Stones (DC), Ureteral Stent Placement (DC) Referrals: Jah Pop MD [Primary Care Provider] - 1 week Gerry Hernandez MD [Physician] - (Please call my office to arrange for a visit in about six months with an abdominal X-ray prior to that visit. You may remove the string stent by pulling on the threads and the stent will follow (on Thursday or Thursday)) Follow Up Appointments: February 02 @ 10:30am with Dr. Pop [phone] Discharge Date/Time: 01/26/25 12:52
[2025-01-26 07:21] VITALS: BP 124/75; PULSE 62; TEMP 36.4; O2SAT 98
--- NOTE | 2025-01-26 07:30 | CM.NOTE ---
Rounds made with Dr. Pop, pt will discharge to home. No discharge needs identified.
--- OUTSIDE RECORDS SUMMARY | 2025-01-26 08:24 | XMS_ITS | CCD ---
Author Organization [facility] CliniSyid Care Team Providers Care Lathing Supervisor Name Role Phone Italia Pruitt Attending Unavailable [...] Referring Unavailable KASEY POP Primary Care Unavailable [place] Procedure Practitioner Unavailab le UNKNOWN, PROVIDER Surgeon Unavailable [place] Procedure Practitioner Unavailab JODI Hogan Surgeon Unavailable Monica Garcia Unavailable LUIS Cardozo, DR AUNG Syed Admitting Unavailira Cardozo, DR AUNG Syed Attending Unavaila skyler [...] Unavailable Kasey Pop Primary Care Physician Alexandria Feranndez Referring Unavailable Alexandria Fernandez Attending Unavailable Alexandria Fernandez Admitting Unavailable CLEMENT PEREZ Attending Unavailable CLEMENT PEREZ Admitting Unavailable KIRSTEN REIS Attending Unavailable DELFINA FAJARDO Attending Unavailable CLEMENT PEREZ Referring Unavailable CLEMENT PEREZ Referring Unavailable CLEMENT PEREZ Referring Unavailable CLEMENT PEREZ Attending Unavailable STANLEY REYES Attending Unavailable CLEMENT PEREZ Referring Unavailable Allergies Allergy Classification Reported Allergen(s) Allergy Type Date of Onset Reaction(s) Facility (1 source) 35701,00; Translations: [Unknown] Propensity to adverse reactions (disorder) 9 [facility] Repository (1 source) No Known Medication Allergies; Translations: [No Known Medication Allergies] Propensity to adverse reactions (disorder) [place] Repository Medications Current Medications Medication Drug Class(es) Dates Sig (Normalized) Sig (Original) Acetaminophen / oxyCODONE (1 source) Opioid Agonist Start: 04-08-2014 Percocet 325 mg-5 mg Tab 1 tab(s), Oral, q4hr as needed for pain, 15 tab(s), Refill(s) 0, Take one tab by mouth every four hours as needed for pain Start Date: 04/08/14 Status: Ordered aspirin 81 mg delayed release oral tablet (3 sources) Platelet Aggregation Inhibitor, Nonsteroidal Anti-inflammatory Drug Start: 11-11-2021 take 1 mg by mouth once daily aspirin 81 mg Oral EC Tab mg tab(s), Oral, Daily, Refills(s) 0 Start Date: 11/11/21 Status: Ordered Start: 11-30-2018 End: 02-22-2019 take 1 tablet by mouth once daily Aspirin 81 mg Tablet,Chewable Discontinued 81 MG PO Daily 90 90 November 30, 2018 12:00am February 22, 2019 1:12pm Aspirin Active 24 hr dilTIAZem hydrochloride 240 mg extended release oral capsule (3 sources) Calcium Channel Sarah Start: 11-11-2021 take 1 capsule by mouth once daily Cardizem CD 240 mg/24 hours Cap-ER mg cap(s), Oral, Daily, Refills(s) 0 Start Date: 11/11/21 Status: Ordered Start: 11-26-2018 take 1 tablet by gina twice daily Diltiazem Hcl (Cardizem) 120 mg Tablet Active 120 MG PO Twice daily November 26, 2018 12:00am Cartia XT Active lisinopril 5 mg oral tablet (3 sources) Angiotensin Converting Enzyme Inhibitor Start: 01-13-2025 take 1 tablet by mouth once daily Lisinopril 5 mg tablet Active 5 MG PO Daily January 13, 2025 12:00am Start: 11-11-2021 take 1 mg by mouth [...] Orally tid for 10 day(s) Aug, Active Completed/Discontinued Medications Medication Drug Class(es) Dates Sig (Normalized) Sig (Original) acetaminophen 325 mg oral tablet (1 source) Start: 11-26-2018 End: 02-22-2019 Acetaminophen (Tylenol) 325 mg Tablet Discontinued 500 MG PO Q4H as needed for Pain November 26, 2018 12:00am February 22, 2019 1:12pm apixaban 5 mg oral tablet (1 source) Factor Xa Inhibitor Start: 11-30-2018 End: 01-13-2025 take 1 tablet by mouth twice daily Apixaban (Eliquis) 5 mg Tablet Discontinued 5 MG PO Twice daily 60 November 30, 2018 12:00am January 13, 2025 4:55pm atorvastatin 40 mg oral tablet (1 source) HMG-CoA Reductase Inhibitor Start: 11-30-2018 End: 02-22-2019 take 1 tablet by mouth once daily in the evening Atorvastatin 40 mg Tablet Discontinued 40 MG PO Every evening 30 November 30, 2018 12:00am February 22, 2019 1:12pm cephalexin 500 mg oral capsule (1 source) Cephalosporin Antibacterial Start: 12-07-2018 End: 12-14-2018 take 1 capsule by mouth twice daily Cephalexin (Keflex) 500 mg capsule Discontinued 500 MG PO Twice daily 14 December 07, 2018 12:00am December 13, 2018 12:00am December 14, 2018 12:02am ciprofloxacin 500 mg oral tablet (1 source) Quinolone Antimicrobial Start: 02-22-2019 End: 01-13-2025 take 1 tablet by mouth twice daily Ciprofloxacin Hcl 500 mg tablet Discontinued 500 MG PO Twice daily February 21, 2019 11:00pm January 13, 2025 4:42pm docusate sodium 100 mg oral capsule (2 sources) Start: 11-26-2018 End: 02-22-2019 take 1 capsule by mouth twice daily Docusate Sodium 100 mg Capsule Discontinued 100 MG PO Twice daily 60 November 30, 2018 12:00am December 07, 2018 2:44pm ibuprofen 600 mg oral tablet (1 source) Nonsteroidal Anti-inflammatory Drug Start: 11-26-2018 End: 02-22-2019 take 1 tablet by mouth every six hours as needed for pain Ibuprofen 600 mg tablet Discontinued 600 MG PO Q6H as needed for Pain November 26, 2018 12:00am February 22, 2019 1:12pm oxyCODONE hydrochloride 5 mg oral tablet (1 source) Opioid Agonist Start: 11-26-2018 End: 12-07-2018 take 1 tablet by mouth every six hours as needed for pain Oxycodone 5 mg tablet Discontinued 5 MG PO Q6H as needed for Pain November 26, 2018 12:00am December 07, 2018 2:45pm potassium chloride 10 meq extended release oral capsule (1 source) Start: 12-07-2018 End: 12-10-2018 take 1 capsule by mouth once daily Potassium Chloride 10 mEq capsule, extended release Discontinued 10 MEQ PO Daily 3 December 07, 2018 12:00am December 09, 2018 12:00am December 10, 2018 12:02am tiZANidine 4 mg oral capsule (1 source) Central alpha-2 Adrenergic Agonist Start: 12-01-2018 End: 02-22-2019 take 1 capsule by mouth every eight hours as needed Tizanidine (Zanaflex) 4 mg capsule Discontinued 4 MG PO Q8H as needed for muscle spasticity December 01, 2018 12:00am February 22, 2019 1:12pm Problems Active Problems Problem Classification Problem Date Documented Date Episodic/Chronic Acute cerebrovascular disease (2 sources) Cerebrovascular accident; Translations: [Cerebral infarction, unspecified] 11-11-2021 Chronic Blindness and vision defects (1 source) Diplopia; Translations: [Diplopia] 11-04-2023 Episodic Comment on above: Problem List clean-u p per request of Phys. [facility] Cmte Calculus of urinary tract (2 sources) Kidney stone; Translations: [History of calculus of kidney] 11-11-2021 Episodic Cardiac and circulatory congenital anomalies (4 sources) Persistent left superior vena cava; Translations: [PERSISTENT LEFT SUPERIOR VENA CAVA] Onset: 04-02-2023 Chronic Cardiac dysrhythmias (9 sources) Atrial fibrillation; Translations: [Unspecified atrial fibrillation] Onset: 03-24-2023 11-11-2021 Chronic Comment on above: Problem List clean-u p per request of Phys. [facility] Cmte Conduction disorders (6 sources) Presence of cardiac pacemaker; Translations: [Encounter for adjustment and management of automatic implantable cardiac defibrillator] Onset: 04-04-2023 Chronic Comment on above: Problem List clean-u p [facility] Essential hypertension (3 sources) Essential (primary) hypertension; Translations: [Hypertensive disorder] Onset: 03-24-2023 Chronic Genitourinary symptoms and ill-defined conditions (1 source) Nocturia 01-13-2022 Episodic Heart valve disorders (1 source) Rheumatic tricuspid insufficiency; Translations: [RHEUMATIC TRICUSPID INSUFFICIENCY] Onset: 04-04-2023 Chronic Immunizations and screening for infectious disease (1 source) Contact with or exposure to other viral diseases; Translations: [Contact with or suspected exposure to severe acute respiratory syndrome coronavirus 2 (SARS-CoV-2)] 01-13-2025 Episodic Late effects of cerebrovascular disease (1 source) Hemiparesis as late effect of cerebrovascular accident; Translations: [Hemiplegia and hemiparesis following cerebral infarction affecting left non-dominant side] 11-04-2023 Chronic Comment on above: Problem List clean-u p per request of Phys[facility] Nonspecific chest pain (2 sources) Other chest pain; Translations: [Other chest pain] Onset: 10-10-2024 Episodic Other and ill-defined heart disease (1 source) Heart disease; Translations: [Heart disease, unspecified] 01-13-2025 Chronic Other circulatory disease (3 sources) Presence of other cardiac implants and grafts; Translations: [Presence of Watchman left atrial appendage closure device] Onset: 05-12-2024 Chronic Other connective tissue disease (1 source) Weakness of face muscles; Translations: [Facial weakness] 11-04-2023 Episodic Comment on above: Problem List clean-u p per request of Phys. [facility] Other nervous system disorders (1 source) Ataxic gait; Translations: [Ataxic gait] 11-04-2023 Episodic Comment on above: Problem List clean-u p per request of Phys. [facility] Other nervous system disorders (1 source) Hyperreflexia; Translations: [Abnormal reflex] 11-04-2023 Episodic Comment on above: Problem List clean-u p per request of Phys. [facility] Unclassified (1 source) Asymptomatic microscopic hematuria 01-13-2022 [...] Name Value Interpretation Reference Range Facility 36on 12-22-[address] Reis - stress test performed on 12/05/2024 is normal. Patient made aware. Normal [facility] 36on 10-28-[address] Reis: Patient informed of Holter monitor result, with occasional PAC's and PVC's. Lexiscan stress test will be ordered. Patient made aware. Order faxed to [facility]. Patient verbalized understanding. Normal [facility] Telephoneon 10-28-2024 Telephone [id number] Todd Stanley 1970 F Date Provider Department Center 10/28/2024 Lillie8-GABRIEL CHEEMA QIAN [facility] Family History Problem Relation Age of Onset Bilateral breast cancer Other Diabetes Other Coronary artery disease Other Hypertension Other Family Status - Relation Status Age at Other Normal [facility] Documentationon 10-13-2024 Documentation [id number] Todd Stanley 1970 F Date Provider Department Center 10/13/2024 [id number]-MZYGJENNIFER ANDRE HVCANTICOAG DE [facility] Family History Problem Relation Age of Onset Bilateral breast cancer Other Diabetes Other Coronary artery disease Other Hypertension Other Family Status - Relation Status Age at Other Reason for Visit and Comments: PharmD Cardiology Consult [Other] [facility] Office Visiton 10-10-2024 Follow-up visit [id number] Todd Stanley 1970 F Date Provider Department Center 10/10/2024 [id number]-TVJWKYKIRSTEN REIS CARD [facility] Family History Problem Relation Age of Onset Bilateral breast cancer Other Diabetes Other Coronary artery disease Other Hypertension Other Family Status - Relation Status Age at Other Level of Service:00825 [place] OFFICE/OUTPATIENT ESTABLISHED MOD MDM 30 MIN Reason for Visit and Comments: Hypertension [557344] Atrial Fibrillation [80] - Pt is here for a three month follow up. [facility] 36on 07-29-2024 36 Regarding limited echo result from 07/22/2024: Delfina Fajardo, CHIDI Cheema MA Please let her know her ECHO [...] Follow-up as planned. Thanks! Patient made aware. [facility] 36on 07-19-2024 36 Appreciate your help! Normal [facility] 36 She can get a limite d ECHO, assessing for effusion. I didn't see anything concerning on EKG, did you Dr. Perez? [facility] 36on 07-18-2024 36 Just spoke with Sandrita freedman and she hasn't transmitted since 07/12. She just left the office. I will email the ECG to you and Dr. Perez. She will have labs drawn right now. I did ask her to do a manual transmission when she gets home. [facility] 36 Patient just had ech o last month prior to ablation. Did you still want another one? I spoke with scheduling at [facility] and they can't get her in for an echo for a week or so. Unless you wanted a limited, as they have more wiggle room for that. Patient is coming to the office right now for EKG and labs. Will call Evoke right now also. Normal [facility] 36 Patient called to make you aware of an episode that happened yesterday morning around 7:50am. She was woken up by chest pain. Says she wasn't able to breathe during this time. Patient states it felt like someone was gripping my heart . She says she hasn't felt right since then. She did not go to the ED. Any suggestions? [facility] Follow-Upon 07-12-2024 Follow-Up [id number] MinaTodd Galicia 1970 F Date Provider Department Center 07/12/2024 DELFINA AMOS QIAN [facility] Family History Problem Relation Age of Onset Bilateral breast cancer Other Diabetes Other Coronary artery disease Other Hypertension Other Family Status - Relation Status Age at Other Level of Service:42556 [place] OFFICE/OUTPATIENT ESTABLISHED MOD MDM 30 MIN Reason for Visit and Comments: Atrial Fibrillation [80] Hypertension [854115] [facility] Telephoneon 07-01-2024 Telephone [id number] GordonserjioTodd Galicia 1970 F Date Provider Department Center 07/01/20241986-MEHRDAD LOPEZ [facility] VASC LAB DE [facility] Family History Problem Relation Age of Onset Bilateral breast cancer Other Diabetes Other Coronary artery disease Other Hypertension Other Family Status - Relation Status Age at Other Reason for Visit and Comments: 3 week post ablation f/u [Other] [facility] Telephoneon 06-16-2024 Telephone [id number] GordonserjioTodd 1970 F Date Provider Department Center 06/16/20241986-MEHRDAD LOPEZ [facility] VASC LAB DE [facility] Family History Problem Relation Age of Onset Bilateral breast cancer Other Diabetes Other Coronary artery disease Other Hypertension Other Family Status - Relation Status Age at Other Reason for Visit and Comments: week f/u post ablation [Other] [facility] Anesthesiaon 06-09-2024 Anesthesia [id number] GordonserjioTodd 1970 F Date Provider Department Center 06/09/2024 4031-DILLON WILSON [facility] VASC LAB UT [facility] Family History Problem Relation Age of Onset Bilateral breast cancer Other Diabetes Other Coronary artery disease Other Hypertension Other Family Status - Relation Status Age at Other Normal [facility] HPon 06-09-2024 [facility] Electrophysiology Consult Note Reason for visit: Afib [...] Intimate Partner Violence: Not At Risk (06/08/2023) [place] Safety & Environment Fear of Current or [...] no w (more content not included)... Normal [facility] NURSNOTEon 06-09-2024 NURSNOTE EKG called to do EKG . Pt/inr sent Normal [facility] Orders Onlyon 06-09-2024 Orders Only [id number] Todd Stanley Grayson 1970 F Date Provider Department Center 06/09/20241986-MEHRDAD LOPEZ [facility] VASC LAB DE [facility] Family History Problem Relation Age of Onset Bilateral breast cancer Other Diabetes Other Coronary artery disease Other Hypertension Other Family Status - Relation Status Age at Other Normal [facility] POCT GLUCOSE METER UNSOLICIT ED RESULTSon 06-09-2024 Glucose [Mass/Vol] 104 mg/dL Normal 70-105 [facility] Comment on above: Order Comment: Waive d Testing in the ED is performed under the ED CLIA certificate #[id number]. Result Comment: [facility] [place] jennifer Performed By: #### L [id number] ####[facility] (BEAKER)[address] [place] [address] PROTIME-INRon 06-09-2024 INR IN PPP BY COAGULATION ASSAY 0.97 Normal 0.90-1.10 [facility] Comment on above: Result Comment: ACCC P [...] CHEST 1995;108:231S-246S. Performed By: #### L [id number] ####[facility] [employer] (Exit41)[address] [place] [address] PROTHROMBIN TIME (PT) IN PPP BY COAGULATION ASSAY 12.9 Seconds Normal 12.3-14.8 [facility] Comment on above: Performed By: #### L [id number] ####[facility] [employer] ([facility])[address] [place] [address] CTA CHEST W IV CONTRASTon CTA CHEST [...] pathology. Electronically signed: Fatmata Wheeler MD. Not Rexdtd Invalid Interpretation Code [facility] Comment on above: Order Comment: Modesta freedman schedule prior to Jun 30 Telemedicineon 05-24-2024 Telemedicine [id number] Todd Stanley 1970 F Date Provider Department Center 05/24/2024 CLEMENT AGUAYO QIAN [facility] Family History Problem Relation Age of Onset Bilateral breast cancer Other Diabetes Other Coronary artery disease Other Hypertension Other Family Status - Relation Status Age at Other Level of Service:03530 [place] PHYS/QHP TELEPHONE EVALUATION 11-20 MIN Normal [facility] Orders Onlyon 05-17-2024 Orders Only [id number] Todd Stanley 1970 F Date Provider Department Center 05/17/[address] Family History Problem Relation Age of Onset Bilateral breast cancer Other Diabetes Other Coronary artery disease Other Hypertension Other Family Status - Relation Status Age at Other Normal [facility] Prep for Procedureon 024 Prep for Procedure [id number] Todd Stanley 1970 F Date Provider Department Center 05/17/2024 CLEMENT AGUAYO [facility] VASC LAB [facility] Family History Problem Relation Age of Onset Bilateral breast cancer Other Diabetes Other Coronary artery disease Other Hypertension Other Family Status - Relation Status Age at Other Normal [facility] Office Visiton 05-12-2024 Follow-up visit [id number] Todd Stanley 1970 F Date Provider Department Center 05/12/2024 SosaSTANLEY HOWE QIAN [facility] Family History Problem Relation Age of Onset Bilateral breast cancer Other Diabetes Other Coronary artery disease Other Hypertension Other Family Status - Relation Status Age at Other Level of Service:98524 [place] OFFICE/OUTPATIENT ESTABLISHED MOD MDM 30 MIN Normal [facility] MA Mamm Screen w/CAD if perf and 3D Bilon 12-28-2023 MA Mamm Screen w/CAD if perf and 3D Arymond Exam Date/Time: 12/24/2023 16:35 EST Reason for [...] very important to your health. The current [employer] and [employer] Cancer [...] Category 1-Negative Recommendation: Normal interval follow-up Normal [place] Consent for Treatmenton 020 Consent for Treatment [id number] .[id number] Normal [place] Physician Orderon 12-15-2023 Physician Order [id number] .[id number] Normal [place] ECHOCARDIO M/2D COMPLETEon 0 04-02-2023 ECHOCARDIO M/2D COMPLETE Patient: TODD STANLEY Exam Date: 04/02/2023 : 1970 Gender:F Ordering : CLEMENT PEREZ Admission #: [id number] Family : Order #: [id number] CLICK HERE TO VIEW EXAM ECHOCARDIOGRAM REPORT [...] M.D. on 04/02/2023 at 15:09 Normal [facility] CBC AUTO DIFFon 07-10-2022 BASO # 0.1 103/ul Normal 0.0-0.1 [facility] Comment on above: Performed By: #### H FPFCBC #### [facility] [address] [place] [address] Dr. Landen Mcrae Basophils/100 WBC (Bld) 1.0 % Normal 0.2-2.0 [facility] Comment on above: Performed By: #### H FPFCBC #### [facility] [address] [place] [address] Dr. Landen Mcrae EO # 0.4 103/ul Normal 0.0-0.7 [facility] Comment on above: Performed By: #### H FPFCBC #### [facility] [address] [address] [address] Landen Mcrae Eosinophils/100 WBC (Bld) 4.0 % Normal 0.9-7.0 [facility] Comment on above: Performed By: #### H FPFCBC #### [facility] [address] [place] [address] Dr. Landen Mcrae Erythrocyte distribution width (RBC) [Ratio] 12.3 % Normal 11.0-15.0 [facility] Comment on above: Performed By: #### H FPFCBC #### [facility] [address] [address] [address] Landen Mcrae Hematocrit (Bld) [Volume fraction] 41.9 % Normal 36.0-48.0 [facility] Comment on above: Performed By: #### H FPFCBC #### [facility] [address] [place] [address] Dr. Landen Mcrae Hemoglobin (Bld) [Mass/Vol] 14.1 g/dL Normal 12.0-16.0 [facility] Comment on above: Performed By: #### H FPFCBC #### [facility] [address] [place] [address] Dr. Landen Mcrae IG # 0.04 10e3/ul Critically high 0.00-0.03 [facility] Comment on above: Performed By: #### H FPFCBC #### [facility] [address] [place] [address] Dr. Landen Mcrae IG % 0.5 % Normal 0.0-0.5 [facility] Comment on above: Performed By: #### H FPFCBC #### [facility] [address] [place] [address] Dr. Landen Mcrae LYMPH # 1.6 103/ul Normal 1.2-3.8 [facility] Comment on above: Performed By: #### H FPFCBC #### [facility] [address] [place] [address] Dr. Landen Mcrae Lymphocytes/100 WBC (Bld) 17.7 % Critically low 20.5-60.0 [facility] Comment on above: Performed By: #### H FPFCBC #### [facility] [address] [place] [address] Dr. Landen Mcrae MCH (RBC) [Entitic mass] 29.5 pg Normal 26.7-34.0 [facility] Comment on above: Performed By: #### H FPFCBC #### [facility] [address] [place] [address] Dr. Landen Mcrae MCHC (RBC) [Mass/Vol] 33.7 g/dL Normal 29.9-35.2 [facility] Comment on above: Performed By: #### H FPFCBC #### [facility] [address] [place] [address] Dr. Landen Mcrae MCV (RBC) [Entitic vol] 87.7 fL Normal 81.0-99.0 [facility] Comment on above: Performed By: #### H FPFCBC #### [facility] [address] [place] [address] Dr. Landen Mcrae MONO # 0.6 103/ul Normal 0.3-0.8 [facility] Comment on above: Performed By: #### H FPFCBC #### [facility] [address] [place] [address] Dr. Landen Mcrae Monocytes/100 WBC (Bld) 7.0 % Normal 1.7-12.0 [facility] Comment on above: Performed By: #### H FPFCBC #### [facility] [address] [place] [address] Dr. Landen Mcrae NEUT # 6.2 103/ul Normal 1.4-6.5 [facility] Comment on above: Performed By: #### H FPFCBC #### [facility] [address] [place] [address] Dr. Landen Mcrae Neutrophils/100 WBC (Bld) 69.8 % Normal 43.0-75.0 [facility] Comment on above: Performed By: #### H FPFCBC #### [facility] [address] [place] [address] Dr. Landen Mcrae Platelet mean volume (Bld) [Entitic vol] 9.9 fL Normal 9.5-13.5 [facility] Comment on above: Performed By: #### H FPFCBC #### [facility] [address] [place] [address] Dr. Landen Mcrae PLT 344 103/ul Normal 150-450 [facility] Comment on above: Performed By: #### H FPFCBC #### [facility] [address] [place] [address] Dr. Landen Mcrae RBC 4.78 106/ul Normal 4.20-5.40 [facility] Comment on above: Performed By: #### H FPFCBC #### [facility] [address] [place] [address] Dr. Landen Mcrae WBC 8.8 103/ul Normal 4.0-11.0 [facility] Comment on above: Performed By: #### H FPFCBC #### [facility] Laboratory [address] [place] [address] Dr. Landen Mcrae [facility] PROFILEon 022 Albumin [Mass/Vol] 3.8 g/dL Normal 3.4-5.0 [facility] Comment on above: Performed By: #### H FPF #### [facility] Laboratory [address] [place] [address] Dr. Landen Mcrae Albumin/Globulin [Mass ratio] 1.4 {ratio} Normal [facility] Comment on above: Performed By: #### H FPF #### [facility] Laboratory [address] [place] [address] Dr. Landen Mcrae ALP [Catalytic activity/Vol] 83 U/L Normal 46-116 [facility] Comment on above: Performed By: #### H FPF #### [facility] Laboratory [address] [place] [address] Dr. Landen Mcrae ALT [Catalytic activity/Vol] 19 U/L Normal 14-59 [facility] Comment on above: Performed By: #### H FPF #### [facility] Laboratory [address] [place] [address] Dr. Landen Mcrae AST [Catalytic activity/Vol] 15 U/L Normal 15-37 [facility] Comment on above: Performed By: #### H FPF #### [facility] Laboratory [address] [place] [address] Dr. Landen Mcrae Bilirubin [Mass/Vol] 0.5 mg/dL Normal 0.2-1.0 [facility] Comment on above: Performed By: #### H FPF #### [facility] Laboratory [address] [place] [address] Dr. Landen Mcrae Calcium [Mass/Vol] 8.9 mg/dL Normal 8.5-10.1 [facility] Comment on above: Performed By: #### H FPF #### [facility] Laboratory [address] [address] [address] Landen Mcrae Chloride [Moles/Vol] 103 mmol/L Normal 98-107 [facility] Comment on above: Performed By: #### H FPF #### [facility] Laboratory [address] [address] [address] Landen Mcrae CHOL-HDL RATIO NORM SEE BELOW Normal [facility] Comment on above: Result Comment: 3.3 - 4.4 LOW RISK 4.4 - 7.1 AVERAGE RISK 7.1 - 11.0 MODERATE RISK >11.0 HIGH RISK Performed By: #### H FPF #### [facility] Laboratory [address] [place] [address] Dr. Landen Mcrae Cholesterol [Mass/Vol] 161 mg/dL Normal <=200 [facility] Comment on above: Performed By: #### H FPF #### [facility] Laboratory [address] [place] [address] Dr. Landen Mcrae Cholesterol in HDL [Mass/Vol] 57 mg/dL Normal 40-60 [facility] Comment on above: Performed By: #### H FPF #### [facility] Laboratory [address] [place] [address] Dr. Landen Mcrae Cholesterol in LDL [Mass/Vol] 88.0 mg/dL Normal [facility] Comment on above: Performed By: #### H FPF #### [facility] Laboratory [address] [address] [address] Landen Mcrae Cholesterol.total/C holesterol in HDL [Mass ratio] 2.8 {ratio} Normal [facility] Comment on above: Performed By: #### H FPF #### [facility] Laboratory [address] [address] [address] Landen Mcrae CO2 [Moles/Vol] 27.1 mmol/L Normal 21.0-32.0 [facility] Comment on above: Performed By: #### H FPF #### [facility] Laboratory [address] [place] [address] Dr. Landen Mcrae Creatinine [Mass/Vol] 0.58 mg/dL Normal 0.55-1.02 [facility] Comment on above: Performed By: #### H FPF #### [facility] Laboratory [address] [address] [address] Landen Mcrae Globulin (S) [Mass/Vol] 2.8 g/dL Normal [facility] Comment on above: Performed By: #### H FPF #### [facility] Laboratory [address] [address] [address] Landen Mcrae Glucose [Mass/Vol] 88 mg/dL Normal 74-[address] [facility] Comment on above: Performed By: #### H FPF #### [facility] Laboratory [address] [address] [address] Landen Mcrae HDL NORMAL > or = 60 mg/dl - LO W CARDIOVASCULAR RISK <40 mg/dl - HIGH CARDIOVASCULAR RISK Normal [facility] Comment on above: Performed By: #### H FPF #### [facility] Laboratory [address] [address] [address] Landen Mcrae LDL CALC NORMAL SEE BELOW Normal [facility] Comment on above: Result Comment: <100 mg/dl OPTIMAL 100 - 129 mg/dl NEAR OR ABOVE OPTIMAL 130 - 159 mg/dl BORDERLINE HIGH 160 - 189 mg/dl HIGH >190 mg/dl VERY HIGH Performed By: #### H FPF #### [facility] Laboratory [address] [address] [address] Landen Mcrae Potassium [Moles/Vol] 3.8 mmol/L Normal 3.5-5.1 [facility] Comment on above: Performed By: #### H FPF #### [facility] Laboratory [address] [address] [address] Landen Mcrae Protein [Mass/Vol] 6.6 g/dL Normal 6.4-8.[address] [facility] Comment on above: Performed By: #### H FPF #### [facility] Laboratory [address] [address] [address] Landen Mcrae Sodium [Moles/Vol] 140 mmol/L Normal 136-[address] [facility] Comment on above: Performed By: #### H FPF #### [facility] Laboratory [address] [address] [address] Landen Mcrae Triglyceride [Mass/Vol] 80 mg/dL Normal <=150 [facility] Comment on above: Performed By: #### H FPF #### [facility] Laboratory [address] [address] [address] Landen Mcrae TSH 1.159 uIU/mL Normal 0.358-3.740 [facility] Comment on above: Performed By: #### H FPF #### [facility] Laboratory [address] [address] [address] Landen Mcrae Urea nitrogen [Mass/Vol] 19.0 mg/dL Critically high 7.0-18.0 [facility] Comment on above: Performed By: #### H FPF #### [facility] Laboratory [address] [address] [address] Landen Mcrae Urea nitrogen/Creatinine [Mass ratio] 32.8 mg/mg Normal [facility] Comment on above: Performed By: #### H FPF #### [facility] Laboratory [address] [address] [address] Landen Mcrae VLDL CALC 16.0 mg/dL Normal [facility] Comment on above: Performed By: #### H FPF #### [facility] Laboratory [address] [address] [address] Landen Mcrae CBC COMPLETE BLOOD COUNTon 01-04-2019 Erythrocyte distribution width (RBC) [Ratio] 12.7 % Normal 11.5-15.0 [facility] Comment on above: Order Comment: No: D o not add to previous draw Performed By: #### 0 0071 #### [facility] [address] [place] [address], [facility] Hematocrit (Bld) [Volume fraction] 36.4 % Normal 36.0-45.0 [facility] Comment on above: Order Comment: No: D o not add to previous draw Performed By: #### 0 0071 #### [facility] [address] [place] [address], [facility] Hemoglobin (Bld) [Mass/Vol] 12.0 g/dL Normal 12.0-15.0 [facility] Comment on above: Order Comment: No: D o not add to previous draw Performed By: #### 0 0071 #### [facility] [address] [place] [address], [facility] MCH (RBC) [Entitic mass] 29.3 pg Normal 27.0-33.0 [facility] Comment on above: Order Comment: No: D o not add to previous draw Performed By: #### 0 0071 #### [facility] [address] [place] [address], [facility] MCHC (RBC) [Mass/Vol] 33.0 g/dL Normal 32.0-35.0 [facility] Comment on above: Order Comment: No: D o not add to previous draw Performed By: #### 0 0071 #### [facility] [address] [place] [address], [facility] MCV (RBC) [Entitic vol] 89.0 fL Normal 82.0-98.0 [facility] Comment on above: Order Comment: No: D o not add to previous draw Performed By: #### 0 0071 #### [facility] [address] [place] [address], [facility] Nucleated RBC/100 WBC (Bld) [Ratio] 0 % Normal 0-0 [facility] Comment on above: Order Comment: No: D o not add to previous draw Performed By: #### 0 0071 #### [facility] [address] [facility] [place] [address], [facility] PLAT CNT 242 10*3/uL Normal 150-400 [facility] Comment on above: Order Comment: No: D o not add to previous draw Performed By: #### 0 0071 #### [facility] [address] [place] [address], [facility] RBC (Bld) [#/Vol] 4.09 10*6/uL Normal 3.80-5.00 [facility] Comment on above: Order Comment: No: D o not add to previous draw Performed By: #### 0 0071 #### [facility] [address] [place] [address], [facility] WBC (Bld) [#/Vol] 8.63 10*3/uL Normal 4.00-10.60 [facility] Comment on above: Order Comment: No: D o not add to previous draw Performed By: #### 0 0071 #### [facility] [address] Cardiovascular Lab Reporton 11-03-2019 Cardiovascular Lab Report [facility] Patient Name: [facility] Deedee Galicia MR #: [id number] Department of Physician: [facility] Patt Roblero M.D. Division of Service Date: 11/02/2019 Cardiology Birthdate: 1970 Adult Cardiovascular Room #: [id number] [facility] [address] [address] Cardiovascular Laboratory Report INDICATION: The patient is a 48-year-old woman with a history of hypertension, paroxysmal atrial fibrillation, and transient ischemic attack. Her CHADS-VASc score is 4. She could not tolerate anticoagulation due to recurrent bleeding and hematuria. She has stopped the anticoagulation therapy. She had a shared care decision making with her bag tester, Dr. Ian Bruce and they both agreed [...] an informed consent. She was brought to laborer/grade check in a fasting state. A transesophageal echocardiogram was performed under conscious sedation. After clearing the appendage from thrombi and doing initial measurement, access was obtained in the right common femoral vein. Using ultrasound guidance and micropuncture technique, a 6-Bahraini x 11 cm sheath was placed. A preclosure in the right common femoral vein was performed using a 6-Bahraini ProGlide device. An SL-1 transseptal sheath was [...] sheath was then exchanged to the Watchman 14-Bahraini access sheath single curve. Note that after initial access in the right common femoral vein, 3000 units of heparin were administered and after obtaining transseptal position, full heparinization was given with therapeutic ACT confirmed during the rest of the procedure and additional heparin given as needed. 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 The patient tolerated the [...] P/Mario Roblero M.D. Date Trans: 11/03/2019 03:13 Ira/carla [id number] cc: Kasey Pop M.D. [address] [place] [address] Normal [facility] PROTHROMBIN TIMEon 9 INR Coag (PPP) [Relative time] 1.16 {INR} Normal 0.91-1.16 [facility] Comment on above: Order Comment: No: [...] 1995;108:231S-246S. Performed By: #### 0 0071 #### [facility] [address] PT Coag (PPP) [Time] 14.9 s High 12.3-14.8 [facility] Comment on above: Order Comment: No: D o not add to previous draw Result Comment: ALL RESULTS MUST BE INTERPRETED WITH RESPECT TO BLOOD DRAWING ARTIFACT OR DILUTION ERROR OF ANTICOAGULANT AT THE TIME OF SAMPLING. Performed By: #### 0 0071 #### [facility] [address] [place] [address], [facility] BASIC METABOLIC PANELon 10-23 Calcium [Mass/Vol] 9.0 mg/dL Normal 8.6-10.3 [place] Comment on above: Performed By: #### 0 0071 #### [facility] [address] [place] [address], [place] Chloride [Moles/Vol] 102 mmol/L Normal 98-107 [facility] Comment on above: Performed By: #### 0 0071 #### [facility] [address] [place] [address], [place] CO2 [Moles/Vol] 29 mmol/L Normal 21-31 [facility] Comment on above: Performed By: #### 0 0071 #### [facility] [address] [place] [address], [place] Creatinine [Mass/Vol] 0.61 mg/dL Normal 0.60-1.20 [facility] Comment on above: Performed By: #### 0 0071 #### [facility] [address] [place] [address], [place] GFR/1.73 sq M predicted among blacks MDRD (S/P/Bld) [Vol rate/Area] mL/min/{1.73_m2} Normal >60 [facility] Comment on above: Performed By: #### 0 0071 #### [facility] [address] [place] [address], [place] GFR/1.73 sq M predicted among non-blacks MDRD (S/P/Bld) [Vol rate/Area] mL/min/{1.73_m2} Normal >60 [facility] Comment on above: Performed By: #### 0 0071 #### [facility] [address] [place] [address], [place] Glucose [Mass/Vol] 97 mg/dL Normal 70-100 [place] Comment on above: Performed By: #### 0 0071 #### [facility] [address] [place] [address], [place] Potassium [Moles/Vol] 3.2 mmol/L Low 3.5-5.1 [facility] Comment on above: Performed By: #### 0 0071 #### [facility] [address] [place] [address], [facility] Sodium [Moles/Vol] 139 mmol/L Normal 136-[address] [facility] Comment on above: Performed By: #### 0 0071 #### [facility] [address] [place] [address], [facility] Urea nitrogen [Mass/Vol] 16 mg/dL Normal 7-25 [facility] Comment on above: Performed By: #### 0 0071 #### [facility] [address] [place] [id number], [facility] CBC COMPLETE BLOOD COUNTon 01-03-2019 Erythrocyte distribution width (RBC) [Ratio] 12.4 % Normal 11.5-15.0 [facility] Comment on above: Performed By: #### 5 0608 #### [facility] [address] [place] [address], [facility] Hematocrit (Bld) [Volume fraction] 47.3 % High 36.0-45.0 [facility] Comment on above: Performed By: #### 5 0608 #### [facility] [address] [place] [address], [facility] Hemoglobin (Bld) [Mass/Vol] 15.7 g/dL High 12.0-15.0 [facility] Comment on above: Performed By: #### 5 0608 #### [facility] [address] [place] [address], [facility] MCH (RBC) [Entitic mass] 28.9 pg Normal 27.0-33.0 [facility] Comment on above: Performed By: #### 5 0608 #### [facility] [address] [place] [address], [facility] MCHC (RBC) [Mass/Vol] 33.2 g/dL Normal 32.0-35.0 [facility] Comment on above: Performed By: #### 5 0608 #### [facility] [address] [place] [address], [facility] MCV (RBC) [Entitic vol] 87.1 fL Normal 82.0-98.0 [facility] Comment on above: Performed By: #### 5 0608 #### [facility] [address] [facility] [place] [address], [facility] Nucleated RBC/100 WBC (Bld) [Ratio] 0 % Normal 0-0 [facility] Comment on above: Performed By: #### 5 0608 #### [facility] [address] [place] [address], [facility] PLAT CNT 359 10*3/uL Normal 150-400 [facility] Comment on above: Performed By: #### 5 0608 #### [facility] [address] [facility] [place] [address], [facility] RBC (Bld) [#/Vol] 5.43 10*6/uL High 3.80-5.00 [facility] Comment on above: Performed By: #### 5 0608 #### [facility] [address] [facility] [place] [address], [facility] WBC (Bld) [#/Vol] 12.09 10*3/uL High 4.00-10.60 [facility] Comment on above: Performed By: #### 5 0608 #### [facility] [address] PROTHROMBIN TIMEon 9 INR Coag (PPP) [Relative time] 1.17 {INR} High 0.91-1.16 [facility] Comment on above: Order Comment: [...] 1995;108:231S-246S. Performed By: #### 5 6101 #### [facility] [address] PT Coag (PPP) [Time] 15.0 s High 12.3-14.8 [facility] Comment on above: Order Comment: No: D o not add to previous draw Result Comment: ALL RESULTS MUST BE INTERPRETED WITH RESPECT TO BLOOD DRAWING ARTIFACT OR DILUTION ERROR OF ANTICOAGULANT AT THE TIME OF SAMPLING. Performed By: #### 5 6101 #### [facility] [address] *MRSA/MSSA DNA NASALon 06-17 *MRSA/MSSA DNA NASAL Clinical Report: (D) Specimen: NASAL SWAB Collected: 06/17/2019 11:45 Status: Final Last Updated: 06/17/2019 18:47 MSSA DNA (Final) Negative MRSA DNA (Final) Methicillin Resistant Staphylococcus aureus DNA Detected Normal [facility] Comment on above: Performed By: #### 3 1595 #### [facility] [address] APTTon 06-17-2019 aPTT Coag (Bld) [Time] 30.5 s Normal 25.0-35.0 [facility] Comment on above: Result Comment: ALL RESULTS [...] THIS PURPOSE. Performed By: #### 5 7307, 11893 #### [facility] [address] [place] [address], [facility] BASIC METABOLIC PANELon 05-24 Calcium [Mass/Vol] 9.4 mg/dL Normal 8.6-10.3 [place] Comment on above: Performed By: #### 0 0071 #### [facility] [address] [place] [address], [facility] Chloride [Moles/Vol] 102 mmol/L Normal 98-107 [facility] Comment on above: Performed By: #### 0 0071 #### [facility] [address] [place] [address], [place] CO2 [Moles/Vol] 28 mmol/L Normal 21-31 [facility] Comment on above: Performed By: #### 0 0071 #### [facility] [address] [place] [address], [facility] Creatinine [Mass/Vol] 0.56 mg/dL Low 0.60-1.20 [facility] Comment on above: Performed By: #### 0 0071 #### [facility] [address] [place] [address], [place] GFR/1.73 sq M predicted among blacks MDRD (S/P/Bld) [Vol rate/Area] mL/min/{1.73_m2} Normal >60 [facility] Comment on above: Performed By: #### 0 0071 #### [facility] [address] [place] [address], [facility] GFR/1.73 sq M predicted among non-blacks MDRD (S/P/Bld) [Vol rate/Area] mL/min/{1.73_m2} Normal >60 [facility] Comment on above: Performed By: #### 0 0071 #### [facility] [address] [place] [address], [place] Glucose [Mass/Vol] 93 mg/dL Normal 70-[address] [facility] Comment on above: Performed By: #### 0 0071 #### [facility] [address] [place] [address], [place] Potassium [Moles/Vol] 3.3 mmol/L Low 3.5-5.1 [facility] Comment on above: Performed By: #### 0 0071 #### [facility] [address] [place] [address], [place] Sodium [Moles/Vol] 139 mmol/L Normal 136-[address] [facility] Comment on above: Performed By: #### 0 0071 #### [facility] [address] [place] [address], [place] Urea nitrogen [Mass/Vol] 17 mg/dL Normal 7-25 [facility] Comment on above: Performed By: #### 0 0071 #### [facility] [address] [place] [address], [facility] CBC COMPLETE BLOOD COUNTon 0 06-17-2019 Erythrocyte distribution width (RBC) [Ratio] 12.7 % Normal 11.5-15.0 [facility] Comment on above: Performed By: #### 5 0608 #### [facility] [address] [place] [address], [facility] Hematocrit (Bld) [Volume fraction] 45.3 % High 36.0-45.0 [facility] Comment on above: Performed By: #### 5 0608 #### [facility] [address] [place] [address], [facility] Hemoglobin (Bld) [Mass/Vol] 15.4 g/dL High 12.0-15.0 [facility] Comment on above: Performed By: #### 5 0608 #### [facility] [address] [place] [id number], [facility] MCH (RBC) [Entitic mass] 29.1 pg Normal 27.0-33.0 [facility] Comment on above: Performed By: #### 5 0608 #### [facility] [address] [place] [address], [facility] MCHC (RBC) [Mass/Vol] 34.0 g/dL Normal 32.0-35.0 [facility] Comment on above: Performed By: #### 5 0608 #### [facility] [address] [place] [address], [facility] MCV (RBC) [Entitic vol] 85.5 fL Normal 82.0-98.0 [facility] Comment on above: Performed By: #### 5 0608 #### [facility] [address] [place] [address], [facility] Nucleated RBC/100 WBC (Bld) [Ratio] 0 % Normal 0-0 [facility] Comment on above: Performed By: #### 5 0608 #### [facility] [address] [place] [address], [facility] PLAT CNT 417 10*3/uL High 150-400 [facility] Comment on above: Performed By: #### 5 0608 #### [facility] [address] [place] [address], [facility] RBC (Bld) [#/Vol] 5.30 10*6/uL High 3.80-5.00 [facility] Comment on above: Performed By: #### 5 0608 #### [facility] [address] [place] [address], [facility] WBC (Bld) [#/Vol] 10.62 10*3/uL [facility] 4.00-10.60 [facility] Comment on above: Performed By: #### 5 0608 #### [address] CHEST AND LATERALon 06-17-20 CHEST AND LATERAL [facility] Department of Radiology [address] [place] [id number] Patient Name: DEEDEE STANLEY : 1970 [...] findings. Electronically signed by:Madhav Harley. Transcribed by: [email or web address], User Resident: ITALIA KNAPP Electronically Signed by: MADHAV HARLEY @ 06/17/2019 04:12 PM I personally read this/these film(s) with this resident Normal [facility] Comment on above: Order Comment: H/O a trial fibrillation PROTHROMBIN TIMEon 9 INR Coag (PPP) [Relative time] 0.97 {INR} Normal 0.91-1.16 [facility] Comment on above: Result Comment: ACCC [...] CHEST 1995;108:231S-246S. Performed By: #### 5 7307, [address] #### [place] [address] PT Coag (PPP) [Time] 12.9 s Normal 12.3-14.8 [facility] Comment on above: Result Comment: ALL RESULTS MUST BE INTERPRETED WITH RESPECT TO BLOOD DRAWING ARTIFACT OR DILUTION ERROR OF ANTICOAGULANT AT THE TIME OF SAMPLING. Performed By: #### 5 7307, [address]72[address] #### [facility] [address] [place] [id number], [facility] TYPE AND SCREENon 06-17-2019 ABO INTERPRETATION A Normal [facility] Comment on above: Performed By: #### 6 [id number] #### [facility] [address] [place] [address], [place] RH INTERPRETATION Positive Normal [facility] Comment on above: Performed By: #### 6 2586 #### [facility] [address] [place] [address], [facility] Basic Metabolic Panelon 04- Calcium mass conc 9.4 mg/dL Normal 8.2-10.2 [facility] Comment on above: Performed By: #### C BC, PT, PTT, BMP #### [facility] [address] Chloride molar conc 101 mmol/L Normal 95-114 [facility] Comment on above: Performed By: #### C BC, PT, PTT, BMP #### [facility] [address] CO2 molar conc 24.1 mmol/L Normal 22.0-30.0 [facility] Comment on above: Performed By: #### C BC, PT, PTT, BMP #### [facility] [address] Creatinine mass conc 0.60 mg/dL Normal 0.44-1.03 [facility] Comment on above: Performed By: #### C BC, PT, PTT, BMP #### [facility] [address] Creatinine mass conc 90.8213081156 mg/dL Normal [facility] Comment on above: Result Comment: PERF ORMED BY: [place] [address] PATHOLOGIST [employer] MANAGER JIANLAN SUN M.D. Performed By: #### C BC, PT, PTT, BMP #### [facility] [address] [place] [address] [place] Estimated GFR ( Mehreen > 60 Normal [facility] Comment on above: Result Comment: GFR estimated reference range: According to KDOQI guidelines, <60 ml/min/1.73m2 is sufficient to diagnose a patient with chronic kidney disease. Performed By: #### C BC, PT, PTT, BMP #### [facility] [address] [place] [address] [place] Estimated GFR (Non- Am > 60 Normal [facility] Comment on above: Performed By: #### C BC, PT, PTT, BMP #### [facility] [address] Glucose mass conc 116 mg/dL High 70-100 [facility] Comment on above: Result Comment: [place] om Glucose Reference Range is dependent on time and content of last meal. Glucose of more than 200 mg/dL in a nonstressed, ambulatory subject supports the diagnosis of Diabetes Mellitus. ADA recommended reference range Performed By: #### C BC, PT, PTT, BMP #### [facility] [address] Potassium molar conc 3.5 mmol/L Normal 3.5-5.1 [facility] Comment on above: Performed By: #### C BC, PT, PTT, BMP #### [facility] [address] [place] [address] [place] Sodium molar conc 137 mmol/L Normal 136-146 [facility] Comment on above: Performed By: #### C BC, PT, PTT, BMP #### [facility] [address] [place] [address] [place] Urea nitrogen mass conc 19 mg/dL Normal 9-23 [facility] Comment on above: Performed By: #### C BC, PT, PTT, BMP #### [facility] [address] [place] [address] CT abdomen pelvis wo conon 0 02-22-2019 CT abdomen pelvis wo con [facility] [address] [place] [address] [place] [address] CT Scan Report Signed Patient: Todd Stanley MR#: [id number] : 1970 Acct:[id number] Age/Sex: 48 / F ADM Date: 02/22/19 Loc: ER Room: Type: [facility] ER Attending Dr: Ordering Provider: Italia Pruitt [...] 3:21 PM Dictation Location: [facility] Transcribed By: MICHI 02/22/19 1521 Dictated By: Nicole Freedman MD 02/22/19 1514 Signed By: 02/22/19 1521 Normal [facility] Complete Blood Count Auto Di ffon 02-22-2019 Basophils #/vol (Bld) 0.1 10*3/uL Normal 0.0-0.2 [facility] Comment on above: Result Comment: PERF ORMED BY: [place] [address] PATHOLOGIST [employer]ATION MANAGER ARELIS MONTEMAYOR M.D. Performed By: #### C BC, PT, PTT, BMP #### [facility] [address] [place] [address] Basophils/100 WBC (Bld) 0.8 % Normal . [facility] Comment on above: Performed By: #### C BC, PT, PTT, BMP #### [facility] [address] [place] [address] Eosinophils #/vol (Bld) 0.2 10*3/uL Normal 0.0-0.45 [facility] Comment on above: Performed By: #### C BC, PT, PTT, BMP #### [facility] [address] [place] [address] Eosinophils/100 WBC (Bld) 2.1 % Normal . [facility] Comment on above: Performed By: #### C BC, PT, PTT, BMP #### [facility] [address] [place] [address] Erythrocyte distribution width Ratio (RBC) 13.9 % Normal 11.9-15.3 [facility] Comment on above: Performed By: #### C BC, PT, PTT, BMP #### [facility] [address] [place] [address] Hematocrit Volume Fraction (Bld) 39.6 % Normal 34.0-46.4 [facility] Comment on above: Performed By: #### C BC, PT, PTT, BMP #### [facility] [address] Hemoglobin mass conc (Bld) 13.2 g/dL Normal 11.8-15.4 [facility] Comment on above: Performed By: #### C BC, PT, PTT, BMP #### [address] Lymphocytes #/vol (Bld) 1.3 10*3/uL Normal 1.00-4.8 [facility] Comment on above: Performed By: #### C BC, PT, PTT, BMP #### [address] Lymphocytes/100 WBC (Bld) 11.5 % Normal . [facility] Comment on above: Performed By: #### C BC, PT, PTT, BMP #### [address] MCH Entitic mass (RBC) 28.5 pg Normal 24.7-34.3 [facility] Comment on above: Performed By: #### C BC, PT, PTT, BMP #### [address] [facility] Entitic mass (RBC) 33.3 g/dL Normal 32.0-35.0 [facility] Comment on above: Performed By: #### C BC, PT, PTT, BMP #### [address] MCV Entitic volume (RBC) 85.6 fL Normal 80-100 [facility] Comment on above: Performed By: #### C BC, PT, PTT, BMP #### [address] Monocytes #/vol (Bld) 0.8 10*3/uL Normal 0.0-0.8 [facility] Comment on above: Performed By: #### C BC, PT, PTT, BMP #### [place] [address] [place] Monocytes/100 WBC (Bld) 7.0 % Normal . [facility] Comment on above: Performed By: #### C BC, PT, PTT, BMP #### [facility] [address] [place] [address] Neutrophils #/vol (Bld) 9.1 10*3/uL High 1.8-7.7 [facility] Comment on above: Performed By: #### C BC, PT, PTT, BMP #### [facility] [address] [place] [address] Neutrophils/100 WBC (Bld) 78.6 % Normal . [facility] Comment on above: Performed By: #### C BC, PT, PTT, BMP #### [address] Nucleated RBC/100 WBC Ratio (Bld) 0.0 % Normal 0-0.5 [facility] Comment on above: Performed By: #### C BC, PT, PTT, BMP #### [address] Platelet mean volume Entitic volume (Bld) 8.3 fL Normal 6.3-10.7 [facility] Comment on above: Performed By: #### C BC, PT, PTT, BMP #### [address] Platelets #/vol (Bld) 319 10*3/uL Normal 150-450 [facility] Comment on above: Performed By: #### C BC, PT, PTT, BMP #### [address] RBC #/vol (Bld) 4.62 10*6/uL Normal 3.60-5.00 [facility] Comment on above: Performed By: #### C BC, PT, PTT, BMP #### [facility] [address] [place] [address] WBC #/vol (Bld) 11.6 10*3/uL High 4.5-11.0 [facility] Comment on above: Performed By: #### C BC, PT, PTT, BMP #### [address] [address] [place] Dipstick and Microscopicon 0 02-22-2019 Appearance Nom (U) Turbid Critically abnormal Clear [facility] Comment on above: Order Comment: Name Collection Type: Clean-Voided Midstream Performed By: #### A DDONUAPLUS, CUU #### [facility] [address] [place] [address] [place] Bacteria LM.HPF #/area (Urine sed) 1+ High None Seen [facility] Comment on above: Order Comment: Name Collection Type: Clean-Voided Midstream Result Comment: PERF ORMED BY: [place] [address] PATHOLOGIST [employer]ATION MANAGER ARELIS MONTEMAYOR M.D. Performed By: #### A DDONUAPLUS, CUU #### [facility] [address] [place] [address] [place] Bilirubin,Urine 2+ High Negative [facility] Comment on above: Order Comment: Name Collection Type: Clean-Voided Midstream Performed By: #### A DDONUAPLUS, CUU #### [facility] [address] [place] [address] [place] Color Nom (U) Red Critically abnormal Yellow [facility] Comment on above: Order Comment: Name Collection Type: Clean-Voided Midstream Performed By: #### A DDONUAPLUS, CUU #### [facility] [address] [place] [address] [place] Glucose Ql (U) 100 mg/dL High Normal [facility] Comment on above: Order Comment: Name Collection Type: Clean-Voided Midstream Performed By: #### A DDONUAPLUS, CUU #### [facility] [address] [place] [address] [place] Ketones Ql (U) 1+ High Negative [facility] Comment on above: Order Comment: Name Collection Type: Clean-Voided Midstream Performed By: #### A DDONUAPLUS, CUU #### [facility] [address] [place] [address] [place] Leukocyte esterase Test strip Ql (U) 3+ High Negative [facility] Comment on above: Order Comment: Name Collection Type: Clean-Voided Midstream Performed By: #### A DDONUAPLUS, CUU #### [place] [address] [place] Nitrite,Urine Positive High Negative [facility] Comment on above: Order Comment: Name Collection Type: Clean-Voided Midstream Performed By: #### A DDONUAPLUS, CUU #### [address] Occult Blood,Urine 3+ High Negative [facility] Comment on above: Order Comment: Name Collection Type: Clean-Voided Midstream Result Comment: PERF ORMED BY: [place] [address] PATHOLOGIST [employer] STATION MANAGER ARELIS MONTEMAYOR M.D. Performed By: #### A DDONUAPLUS, CUU #### [address] pH (U) 6.5 [pH] Normal 5.0-9.0 [facility] Comment on above: Order Comment: Name Collection Type: Clean-Voided Midstream Performed By: #### A DDONUAPLUS, CUU #### [address] Protein mass conc (U) mg/dL High Negative [facility] Comment on above: Order Comment: Name Collection Type: Clean-Voided Midstream Performed By: #### A DDONUAPLUS, CUU #### [place] [address] [place] RBC LM.HPF #/area (Urine sed) Innumerable High 0-4 [facility] Comment on above: Order Comment: Name Collection Type: Clean-Voided Midstream Performed By: #### A DDONUAPLUS, CUU #### [place] [address] [place] Specificy [place],Urine 1.025 Normal 1.001-1.030 [facility] Comment on above: Order Comment: Name Collection Type: Clean-Voided Midstream Performed By: #### A DDONUAPLUS, CUU #### [address] Squamous Epithelial Cell,Urine 3-4 High 0-2 [facility] Comment on above: Order Comment: Name Collection Type: Clean-Voided Midstream Performed By: #### A DDONUAPLUS, CUU #### [address] Urobilinogen,Urine >=[address] [facility] Comment on above: Order Comment: Name Collection Type: Clean-Voided Midstream Performed By: #### A DDONUAPLUS, CUU #### [address] WBC LM.HPF #/area (Urine sed) 10-19 High 0-4 [facility] Comment on above: Order Comment: Name Collection Type: Clean-Voided Midstream Performed By: #### A DDONUAPLUS, CUU #### [address] Partial Thromboplastin Timeo n 02-22-2019 aPTT Coag time (Bld) 34.2 s Normal 23.0-35.0 [facility] Comment on above: Result Comment: PERF ORMED BY: [place] [address] PATHOLOGIST [employer]ATION MANAGER ARELIS MONTEMAYOR M.D. Performed By: #### C BC, PT, PTT, BMP #### [address] Prothrombin Time INRon 02-22 INR Coag RelTime (PPP) 1.2 {INR} Normal [facility] Comment on above: Result Comment: INR Therapeutic [...] #### C BC, PT, PTT, BMP #### [address] [place] [address] [facility] Prothrombin time (PT) Coag time (PPP) 14.3 s High 9.0-12.9 [facility] Comment on above: Performed By: #### C BC, PT, PTT, BMP #### [facility] [address] Urine Cultureon 02-22-2019 Bacteria identified Cx Nom (U) No Growth 2 Days PERFORMED BY: [place] [address] PATHOLOGIST [employer] STATION MANAGER ARELIS MONTEMAYOR M.D. Normal [facility] Comment on above: Performed By: #### A DDONUAPLUS, CUU #### [address] Vital Signs Date Time Vital Sign Value Performing Clinician Facility 01-13-2025 16:51-0500 Body height 157.[address] [facility] 01-13-2025 16:51-0500 Body mass index (BMI) [Ratio] 24.3 kg/m2 [facility] 01-13-2025 16:51-0500 Body temperature 97.7 [degF] [facility] 01-13-2025 16:51-0500 Body weight 60.[address] [facility] 01-13-2025 16:51-0500 Diastolic blood pressure 81 mm[Hg] [facility] 01-13-2025 16:51-0500 Heart rate 74 /min [facility] 01-13-2025 16:51-0500 Respiratory rate 18 /min [facility] 01-13-2025 16:51-0500 SaO2% (BldA) [Mass fraction] 98 % [facility] 01-13-2025 16:51-0500 Systolic blood pressure 127 mm[Hg] [facility] 09-08-2021 13:05-0400 Body height 157.48 cm Monica Garcia Other [facility] Other 09-08-2021 13:05-0400 Body mass index (BMI) [Ratio] 24.32 kg/m2 Monica Garcia Other [facility] Other 09-08-2021 13:05-0400 Body temperature 97.1 [degF] Monica Garcia Other [facility] Other 09-08-2021 13:05-0400 Body weight 60.33 kg Monica Garcia Other [facility] Other 09-08-2021 13:05-0400 Diastolic blood pressure 94 mm[Hg] Monica Garcia Other [facility] Other 09-08-2021 13:05-0400 Respiratory rate 18 /min Monica Garcia Other [facility] Other 09-08-2021 13:05-0400 SaO2% (BldA) [Mass fraction] 100 % Monica Garcia Other [facility] Other 09-08-2021 13:05-0400 Systolic blood pressure 144 mm[Hg] Monica Garcia Other [facility] Other Encounters Encounter Date Encounter Type Care Provider Facility Start: 01-13-2025 End: 01-13-2025 ambulatory [facility] Work Phone: Start: 01-13-2025 End: 01-13-2025 Patient encounter procedure [facility] Work Phone: Start: 10-10-2024 End: 10-10-2024 ambulatory [facility] Start: 07-12-2024 End: [facility]12-[facility]: 06-09-[facility]24 ambulatory [facility] Start: 06-09-2024 End: 06-09-2024 ambulatory [facility] Start: 06-02-2024 End: 06-02-2024 ambulatory [facility] Start: 05-24-2024 ambulatory [facility] Start: 05-12-2024 End: 05-12-2024 ambulatory STANLEY REYES [facility] Start: 05-10-2024 End: 05-10-2024 ambulatory [facility] Start: 12-24-2023 End: 12-25-2023 ambulatory Alexandria Fernandez [facility] Start: 12-24-2023 End: 12-24-2023 Patient encounter procedure Alexandria Fernandez [facility] Start: 04-02-2023 End: 04-03-2023 ambulatory CLEMENT PEREZ Facility: Start: 07-20-[address] AUNG Cardozo Facility: Start: 07-10-2022 End: 07-11-[address] KASEY POP . Facility: Start: 09-08-2021 Office outpatient vi sit 15 minutes Monica SOL[facility] Start: 11-02-2019 End: 11-03-2019 Evaluation and management of inpatient PROVIDER UNKNOWN Facility:[facility] Start: 06-17-2019 End: 06-18-2019 Patient encounter procedure NITA CHIANG Facility:[facility] Start: 02-22-2019 End: 02-22-2019 Emergency department patient visit Italia Pruitt Facility:[facility] Start: 12-29-2018 End: 12-30-2018 Patient encounter procedure JODI MEZA Facility:[facility] Procedures Date Procedure Procedure Detail Performing Clinician Start: 12-28-2021 Cystoscopy Alexandria Nelson pe Start: 11-07-2020 Cardiac pacemaker, d evice (physical object) Alexandria Fernandez Start: 11-02-2019 OCCLUSION OF JOHN WIT H INTRALUM DEV, PERC APPROACH MARIO Gloria ROBLERO Start: 11-02-2019 ULTRASONOGRAPHY OF L EFT HEART, TRANSESOPHAGEAL JODI MEZA Start: 06-17-2019 Antibody screen JODI HIGGINS Comment on above: Performed By: #### 6 2586 #### [facility] [place] [address], [facility] Start: 01-06-2019 Cystourethroscopy wi th dilation of urethral stricture Alexandria Jim section Alexandria Lamp e H/O: hysterectomy History of hysterectomy Hysterectomy Alexandria Jim Immunizations Immunization Date Immunization Notes Care Provider Fa cility 01-25-2021 SARS-CoV-2 (COVID-19 ) mRNA BNT-162b2 vax Alexandria Jim [facility] 01-04-2021 SARS-CoV-2 (COVID-19 ) mRNA BNT-162b2 vax Alexandria Jim [facility] NEGATED: Highlighted row has not occurred!11-11-2021 influenza virus vaccine, unspecified formulation Alexandria Fernandez [facility] NEGATED: Highlighted row has not occurred!11-28-2018 influenza, injectable, quadrivalent, preservative free [facility] Payers Date Payer Category Payer Self-pay 1970 Unknown [id number] 2.16.8 [id number] 1970 Unknown [id number] 2.16.8 [id number] 1970 Unknown [id number] 2.16.8 [id number] 1970 Unknown [id number] 2.16.84 [id number] 1970 Unknown [id number] 2.16.84 [id number] 1970 Unknown [id number] 2.16.8 [id number] 1959 Self-pay [id number] 1959 Unknown [id number] Unknown [id number] Unknown [id number] 2.16.84 [id number] Social History Date Type Detail Facility Unknown if ever smoked [facility] Other Sex Assigned At [facility] Start: 01-13-2022 End: 01-13-2025 Tobacco smoking status Never smoked tobacco (finding) [facility] Tobacco smoking status Never [facility] Start: 01-13-2025 Sex Female (finding) [facility] Start: 1970 Sex Assigned At Female F [facility] Clinical Notes 09-08-2021 to 11-03-2024 Note Date & Type Note Facility 11-03-2024 Note Addendum created 11/15 by Rafael Miranda MD Attestation recorded in Intraprocedure, Flowsheet accepted, Intraprocedure Attestations filed [facility] 10-13-2024 Note PharmD Consult - Josi or Authorization Referring Provider: Dr. Clement Perez PharmD received consult from provider to assist with coverage of Xarelto. Pertinent PMH includes Afib. Patient does have insurance. Insurance type: Commercial Xarelto requires prior authorization. Completed on CoverMyMeds. Per CoverMyMeds: This request has been approved using information available on the patient's profile. CaseId:[id number];Status:Approved;Review Type:Prior Auth;Coverage Start Date:09/13/2024;Coverage End Date:10/13/2025 Please notify patient. Jennifer Andre PharmD Cardiology Outpatient Clinical Pharmacist 10/13/24 [facility] 10-10-2024 Note [place] Cardiology - [facility] Subjective Todd Stanley is a 53 [...] fascicular block.NS T changes Echo: 07/22/2024 at [facility] Stress test: Cardiac cath: EP procedure 06/09/2024 NAME OF THE PROCEDURE: Pulmonary Vein Isolation and Comprehensive EP study. INDICATIONS FOR PROCEDURE: 1. Early Persistent atrial fibrillation. FLUROSCOPY: 4.9minutes/ 21mGy. EBL: 15cc SPECIMEN REMOVED: None PROCEDURES PERFORMED: 1. Sonosite guided venous (more content not included)... [facility] 07-12-2024 Note Cardiovascular Medic ine [facility] SUBJECTIVE Chief Complaint Patient presents with [...] Final QTC CALCULATION(BAZETT) 06/09/2024 495 ms Final R-[place] 06/09/2024 74 degrees Final T Wave [place] 06/09/2024 -85 degrees Final Protime 06/09/2024 12.9 12.3 - 14.8 Seconds Final INR 06/09/2024 0.97 0.90 - 1.10 Final Glucose POC 06/09/2024 104 70 - 105 mg/dL Final Ventricular Rate 06/09/2024 69 BPM Final QRS DURATION 06/09/2024 92 ms Final QT Interval 06/09/2024 464 ms Final QTC CALCULATION(BAZETT) 06/09/2024 497 ms Final R-[place] 06/09/2024 -58 degrees Final T Wave [place] 06/09/2024 87 degrees Final POCT ACT 06/09/2024 400 (A) 82 - 152 seconds In process QC Pass/Fail 06/09/2024 Passed In process QC LOT # 06/09/2024 18 In process QC (more content not included)... [facility] 07-12-2024 Note Pt is here for follo w up from afib ablation. Review of Systems Musculoskeletal: Positive for myalgias. All other systems reviewed and are negative. [facility] 06-09-2024 Note ATRIAL FIBRILLATION ABLATION PROCEDURE NOTE [...] were placed. Esophagus was mapped using the [employer] 3D mapping software and noted to be [...] transseptal was perform (more content not included)... [facility] 06-09-2024 Note Patient: Todd palomares Procedure Summary Date: 06/09/24 Room / Location: [facility] ZONE MAINTENANCE TECHNICIAN 1 / [facility] (Cath) Anesthesia Start: 831 Anesthesia [...] and follow verbal commands throughout transport process [facility] 06-09-2024 Note Patient: Todd palomares Procedure Summary Date: 06/09/24 Room / Location: [facility] ZONE MAINTENANCE TECHNICIAN 1 EP / [facility] (Cath) Anesthesia Start: 831 Anesthesia [...] per anesthesia protocol. No notable events documented. [facility] 06-09-2024 Note Airway Date/Time: 06/09/2024 8:52 AM Urgency: elective Airway not difficult General Information and Staff Patient location during procedure: OR Anesthesiologist: Rafael Miranda MD Resident/GIN FEEDER/CAA: Iliana Gandara MD Performed: other anesthesia staff [...] 1 Number of other approaches attempted: 0 [facility] 06-09-2024 Note Arterial Line: Date/Time: 06/09/2024 7:35 [...] mL - 06/09/2024 7:35:00 AM Staffing Performed: resident/GIN FEEDER/CAA Anesthesiologist: Rafael Miranda MD Resident/GIN FEEDER: Iliana Gandara MD Performed by: Iliana Gandara MD Authorized by: Iliana Gandara MD [facility] 06-09-2024 Note Patient: Todd palomares Procedure Information Date/Time: 06/09/24 0800 Procedure: Ablation a-fib paroxysmal Location: [facility] ZONE MAINTENANCE TECHNICIAN 1 EP / [facility] VASCULAR LAB (Cath) Providers: Clement Perez MD [...] Plan discussed with attending. Additional Equipment Requests [facility] 05-24-2024 Note Date of Telehealth V isit: 05/24/24 The patient was notified that using 3rd libertarian telecommunication application (e.g., [employer]) is not HIPPA compliant and may carry some privacy risks. Yes The visit was conducted [id number] with the use of audio and video technology Jonatan. between patient and provider for a virtual [...] documentation in this note for specific details. [place] Electrophysiology Consult Note Reason for visit: s/p [...] Intimate Partner Violence: Not At Risk (06/08/2023) [place] Safety & Environment Fear of Current or [...] reviewed and are negative. Physical Exam: Tele [facility] Labs: @LABRESULTS@ No results found for: CHOLESTEROL TOTAL , HDL , LDL CALC , LDL DIRECT , TRIGLYCERIDES , TSH , T3 TOTAL , T4 TOTAL , THYROID PEROXIDASE AB , BNP EKG: Encounter Date: 06/09/24 ECG 12 lead Result Value Ventricular Rate 69 QRS DURATION 92 QT Interval 464 QTC CALCULATION(BAZETT) 497 R-[place] -58 T Wave [place] 87 Impression Atrial pacemaker with premature supraventricular [...] in left submuscular site with underlying PLSVC: [place] discomfort in the device site has markedly decreased. there is no evidence of infection or discharge. - PLSVC - AF s/p WATCHMAN Afib ablation would require placement of multiple catheters in the heart under moderate sedation which will include diagnostic catheters, ICE catheters and ablation catheters. The risk of the procedures can be described as minor and major min (more content not included)... [facility] 05-12-2024 Note Device interrogation q 6 months [facility] 05-12-2024 Note stable [facility] 05-12-2024 Note Continue lisinopril and Diltiazem- provider asked pt to check b/p at home 1-2 times/day and goal is < 130/80- she voiced understanding that staff will call her in 1-2 weeks to review b/p log and she is to call office. [facility] 05-12-2024 Note Stable s/p SVT Ablat ion 2008- remains on diltiazem. [facility] 05-12-2024 Note Stable s/p PPM implantation [facility] 05-12-2024 Note Patient here for 1 y ear follow up sinus node dysfunction s/p PPM and afib s/p Watchman implant. Her device was interrogated in the office 2 days ago. She denies chest pain, SOB, palpitations, and lightheadedness/syncope. Review of Systems Musculoskeletal: Positive for myalgias. All other systems reviewed and are negative. [facility] 05-12-2024 Note [facility] CARDIOLOGY PROGR ESS NOTE [...] with Dr Perez- possible a fib abalation. [facility] 06-20-2024 Note - AF s/p WATCHMAN - no anticoagulation Continue diltiazem, noted A fib on PPM device interrogation and d/w pt about possible a fib ablation, provided pt information via pamphlet about a fib ablation, and she voiced understanding and agreement- Dr Perez- EP updated. During A fib episodes she is not in RVR and rate remains controlled, she denied any symptoms [facility] 09-08-2021 Evaluation note Encounter Date Diagnosis Assessment Notes Aug, Herpes zoster without complication (ICD-10 - B02.9) Drink plenty fluids, get plenty of rest. Continue home medications as prescribed. Take the Valtrex as prescribed until gone. Consider using zytv-[id number]-zypiv er capsaicin cream to the rash for pain. Follow-up with your family physician if no improvement in 2 to 3 days. [facility] Other Evaluation + Plan note No data available for this section [facility] Diagnosis Onset Date Resolution Status Admit Date Contact with or suspected exposure to severe acute respiratory syndrome noneactive January 132024 4:37pm [facility] Work Phone: Hisxfnj general Narrative - Reported* Type Description Date Medical History stroke Medical History heart disease Medical History htn Surgical History hysterectomy Surgical History pacemaker Surgical History watchman Hospitalization History see above Hospitalization History stroke 2019 [facility] Discharge instructions No data available for this section [facility] data available for this section [facility] Summary Purpose Family History Relationship Condition Age at Onset Recorded Date/T burke father Malignant neoplasm Unknown Hypertension Unknown Diabetes mellitus Unknown Unknown Advance Directives Advance Directive Response Recorded Date/ Time Advance Directives No November 26, 2018 6:24pm Hospital Course Note MR#: [id number] [facility] Pt. Name: Deedee Stanley Admitted: 11/02/2019 [...] a shared care decision making with her bag tester, Dr. Ian Bruce, they both agreed that she should undergo the Watchman left atrial appendage closure procedure as an alternative to long-ter (more content not included)... Chief Complaint and Reason for Visit Chief Complaint Admit Date chills, headache, stuffy nose December 252024 4:37pm Reason for Visit Admit Date Contact with or suspected ex posure to severe acute respiratory syndrome January 13, 2025 4:37pm Additional Source Comments INFORMATION SOURCE (unrecogn ized section and content) DATE CREATED AUTHOR 02/26/2019 [facility] DATE CREATED AUTHOR AUTHOR'S ORGANIZ ATION 12/20/2019 [facility] DATE CREATED AUTHOR AUTHOR'S ORGANIZ ATION 04/05/2023 [facility] DATE CREATED AUTHOR AUTHOR'S ORGANIZ ATION 12/28/2023 [facility] DATE CREATED AUTHOR AUTHOR'S ORGANIZ ATION 12/24/2024 [facility] REASON FOR VISIT (unrecogniz ed section and content) RASH ON BACK OF NECK FOR 3 D AYS Patient Care team informatio n (unrecognized section and content) Team Status: Active Member Role Status Vanessa Pop MD Primary Care Provider Active Team Status: Inactive Member Role Status Dates Ksaey Pop MD Primary Care Provider Active Start: January 13, 2025 End: January 13, 2025 Soraida Tidwell APRN Attending Provider Active Start: January 13, 2025 End: January 13, 2025 Goals (unrecognized section and content) Goals may be documented in a n alternate section FOR RECORDS PERTAINING TO PATIENTS WHO ARE [...] BE BASED ON THE PRIMARY CLINICAL RECORDS. [employer] [facility]. provides no warranty or guarantee of the accuracy or completeness of information in this document.
[2025-01-26] MEDS: DILTIAZEM HCL 60 MG TABLET 120 MG PO (08:39)
[2025-01-26] MEDS: LISINOPRIL 5 MG TABLET PO (08:39)
[2025-01-26] MEDS: SOLIFENACIN SUCCINATE 10 MG TABLET PO (08:39)
--- NOTE | 2025-01-26 11:00 | CM.NOTE ---
RN asking if pt would need to be seen by urologist prior to discharge. In rounds with Dr. Pop, explained to pt she would see urology as outpt and RN would instruct on removal of stent. [place] txt Dr. Pop to make sure this is correct. Pt is okay to discharge to home and f/u as outpt with urology.
[2025-01-26 11:42] VITALS: BP 145/80; PULSE 65; TEMP 37.1; O2SAT 97
[2025-01-26 12:06] VITALS: O2SAT 97
--- OUTSIDE RECORDS SUMMARY | 2025-01-27 08:18 | XMS_ITS | CCD ---
Author Organization [facility]ini[facility] Care Team Providers Care Relationship Assoc Name Role Phone Italia Pruitt Attending Unavailable [...] Referring Unavailable KASEY POP Primary Care Unavailable [place] Procedure Practitioner Unavailab le UNKNOWN, PROVIDER Surgeon Unavailable [place] Procedure Practitioner Unavailab JODI Hogan Surgeon Unavailable [...] Date of Onset Reaction(s) Facility (1 source) 35751,00; Translations: [Unknown] Propensity to adverse reactions (disorder) 9 [facility] Repository (1 source) No Known Medication Allergies; Translations: [No Known Medication Allergies] Propensity to adverse reactions (disorder) [facility] Repository Medications Current Medications Medication Drug Class(es) [...] List clean-u p per request of Phys. 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 [facility] Cmte Conduction disorders (6 sources) Presence of cardiac pacemaker; Translations: [Encounter for adjustment and management of automatic implantable cardiac defibrillator] Onset: 04-04-2023 Chronic Comment on above: Problem List clean-u p per request of Phys. [facility] Ess[facility] hypertension (3 sources) Essential (primary) [...] List clean-u p per request of Phys. [facility] Nonspecific chest pain (2 sources) Other [...] 12/05/2024 is normal. Patient made aware. Normal [facility] 36on 10-28-[address] Reis: Patient informed of Holter monitor result, with occasional PAC's and PVC's. Lexiscan stress test will be ordered. Patient made aware. Order faxed to [facility]. Patient verbalized understanding. Normal [facility] Telephoneon 10-28-2024 Telephone [id number] Todd Stanley 1970 F Date Provider Department Center 10/28/2024 Lillie8-GABRIEL CHEEMA QIAN [facility] Family History Problem Relation Age of Onset Bilateral breast cancer Other Diabetes Other Coronary artery disease Other Hypertension Other Family Status - Relation Status Age at Other Normal [facility] Documentationon 10-13-2024 Documentation [id number] Todd Stanley 1970 F Date Provider Department Center 10/13/2024 16134-OFOGJENNIFER ANDRE HVCANTICOAG [place] [facility] Family History Problem Relation Age of Onset Bilateral breast cancer Other Diabetes Other Coronary artery disease Other Hypertension Other Family Status - Relation Status Age at Other Reason for Visit and Comments: PharmD Cardiology Consult [Other] [facility] Office Visiton 10-10-2024 Follow-up visit [id number] Todd Stanley 1970 F Date Provider Department Center 10/10/2024 06225-HVKQTEKIRSTEN REIS CARD [facility] Family History Problem Relation Age of Onset Bilateral breast cancer Other Diabetes Other Coronary artery disease Other Hypertension Other Family Status - Relation Status Age at Other Level of Service:94342 [place] OFFICE/OUTPATIENT ESTABLISHED MOD MDM 30 MIN Reason for Visit and Comments: Hypertension [146357] Atrial Fibrillation [80] - Pt is here for a three month follow up. [facility] 36on 07-29-2024 36 Regarding limited echo result [...] Follow-up as planned. Thanks! Patient made aware. [facility] 36on 07-19-2024 36 Appreciate your help! Normal [facility] 36 She can get a limite d ECHO, assessing for effusion. I didn't see anything concerning on EKG, did you Dr. Perez? [facility] 36on 07-18-2024 36 Just spoke with Sandrita freedman and she hasn't transmitted since 07/12. She just left the office. I will email the ECG to you and Dr. Perez. She will have labs drawn right now. I did ask her to do a manual transmission when she gets home. [facility] 36 Patient just had ech o last month prior to ablation. Did you still want another one? I spoke with scheduling at [facility] and they can't get her in for an echo for a week or so. Unless you wanted a limited, as they have more wiggle room for that. Patient is coming to the office right now for EKG and labs. Will call Evoke right now also. Normal [facility] 36 Patient called to make you aware of an episode that happened yesterday morning around 7:50am. She was woken up by chest pain. Says she wasn't able to breathe during this time. Patient states it felt like someone was gripping my heart . She says she hasn't felt right since then. She did not go to the ED. Any suggestions? [facility] Follow-Upon 07-12-2024 Follow-Up [id number] MinaTodd Galicia 1970 F Date Provider Department Center 07/12/2024 DELFINA AMOS QIAN [facility] Family History Problem Relation Age of Onset Bilateral breast cancer Other Diabetes Other Coronary artery disease Other Hypertension Other Family Status - Relation Status Age at Other Level of Service:64414 [place] OFFICE/OUTPATIENT ESTABLISHED MOD MDM 30 MIN Reason for Visit and Comments: Atrial Fibrillation [80] Hypertension [981799] [facility] Telephoneon 07-01-2024 Telephone [id number] GordonserjioTodd Galicia 1970 F Date Provider Department Center 07/01/20241986-MEHRDAD LOPEZ [facility] Family History Problem Relation Age of Onset Bilateral breast cancer Other Diabetes Other Coronary artery disease Other Hypertension Other Family Status - Relation Status Age at Other Reason for Visit and Comments: 3 week post ablation f/u [Other] [facility] Telephoneon 06-16-2024 Telephone [id number] GordonserjioTodd 1970 F Date Provider Department Center 06/16/20241986-MEHRDAD LOPEZ [facility] Family History Problem Relation Age of Onset Bilateral breast cancer Other Diabetes Other Coronary artery disease Other Hypertension Other Family Status - Relation Status Age at Other Reason for Visit and Comments: week f/u post ablation [Other] [facility] Anesthesiaon 06-09-2024 Anesthesia [id number] GordonserjioTodd 1970 F Date Provider Department Center 06/09/2024 4031-DILLON WILSON [facility] Family History Problem Relation Age of Onset Bilateral breast cancer Other Diabetes Other Coronary artery disease Other Hypertension Other Family Status - Relation Status Age at Other Normal [facility] HPon 06-09-2024 [facility] Electrophysiology Consult Note Reason for [...] Intimate Partner Violence: Not At Risk (06/08/2023) [place] Safety & Environment Fear of Current or [...] no w (more content not included)... Normal [facility] NURSNOTEon 06-09-2024 NURSNOTE EKG called to do EKG . Pt/inr sent Normal [facility] Orders Onlyon 06-09-2024 Orders Only [id number] Todd Stanley Grayson 1970 F Date Provider Department Center 06/09/20241986-MEHRDAD LOPEZ [facility] Family History Problem Relation Age of Onset Bilateral breast cancer Other Diabetes Other Coronary artery disease Other Hypertension Other Family Status - Relation Status Age at Other Normal [facility] POCT GLUCOSE METER UNSOLICIT ED RESULTSon 06-09-2024 Glucose [Mass/Vol] 104 mg/dL Normal 70-105 [facility] Comment on above: Order Comment: Waive d Testing in the ED is performed under the ED CLIA certificate #[id number]. Result Comment: [facility] jennifer Performed By: #### L [id number] ####[facility] ([facility]AKER)[address] [place] [address] PROTIME-INRon 06-09-2024 INR IN PPP BY COAGULATION ASSAY 0.97 Normal 0.90-1.10 [facility] Comment on above: Result Comment: [...] 1995;108:231S-246S. Performed By: #### L [id number] ####[facility] [employer] ([employer])[address] [place] [address] PROTHROMBIN TIME (PT) IN PPP BY COAGULATION ASSAY 12.9 Seconds Normal 12.3-14.8 [facility] Comment on above: Performed By: #### L AB320 ####[facility] [employer] ([facility])[address] [place] [address] CTA CHEST W IV CONTRASTon CTA CHEST [...] Wheeler MD. Not Rexdtd Invalid Interpretation Code [facility] Comment on above: Order Comment: Modesta freedman schedule prior to Jun 30 Telemedicineon 05-24-2024 Telemedicine [id number] Todd Stanley 1970 F Date Provider Department Center 05/24/2024 CLEMENT AGUAYO QIAN [facility] Family History Problem Relation Age of Onset Bilateral breast cancer Other Diabetes Other Coronary artery disease Other Hypertension Other Family Status - Relation Status Age at Other Level of Service:16795 [place] PHYS/QHP TELEPHONE EVALUATION 11-20 MIN Normal [facility] Orders Onlyon 05-17-2024 Orders Only [id number] Todd Stanley 1970 F Date Provider Department Center 05/17/[address] Family History Problem Relation Age of Onset Bilateral breast cancer Other Diabetes Other Coronary artery disease Other Hypertension Other Family Status - Relation Status Age at Other Normal [facility] Prep for Procedureon 024 Prep for Procedure [id number] Todd Stanley 1970 F Date Provider Department Center 05/17/2024 CLEMENT AGUAYO [facility] Family History Problem Relation Age of Onset Bilateral breast cancer Other Diabetes Other Coronary artery disease Other Hypertension Other Family Status - Relation Status Age at Other Normal [facility] Office Visiton 05-12-2024 Follow-up visit [id number] Todd Stanley 1970 F Date Provider Department Center 05/12/2024 SosaSTANLEY HOWE QIAN [facility] Family History Problem Relation Age of Onset Bilateral breast cancer Other Diabetes Other Coronary artery disease Other Hypertension Other Family Status - Relation Status Age at Other Level of Service:05953 [place] OFFICE/OUTPATIENT ESTABLISHED MOD MDM 30 MIN Normal [facility] [place] Mamm Screen w/CAD if [...] very important to your health. The current [employer] and National Comprehensive Cancer [...] Category 1-Negative Recommendation: Normal interval follow-up Normal [facility] Consent for Treatmenton 020 Consent for Treatment [id number] Normal [facility] Physician Orderon 12-15-2023 Physician Order [id number] .[id number] Normal [facility] ECHOCARDIO M/2D COMPLETEon 0 04-02-2023 ECHOCARDIO M/2D COMPLETE Patient: TODD STANLEY Exam Date: 04/02/2023 : 1970 Gender:F Ordering : CLEMENT PEREZ Admission #: [id number] Family : Order #: [id number] CLICK HERE TO VIEW EXAM ECHOCARDIOGRAM REPORT [...] M.D. on 04/02/2023 at 15:09 Normal [facility] CBC AUTO DIFFon 07-10-2022 BASO # 0.1 103/ul Normal 0.0-0.1 [facility] Comment on above: Performed By: #### H FPFCBC #### [facility] [address] [place] [address] Dr. Landen Mcrae Basophils/100 WBC (Bld) 1.0 % Normal 0.2-2.0 [facility] Comment on above: Performed By: #### H FPFCBC #### [facility] [address] [place] [address] Dr. Landen Mcrae EO # 0.4 103/ul Normal 0.0-0.7 [facility] Comment on above: Performed By: #### H FPFCBC #### [facility] [address] [address] [address] Landen Mcrae Eosinophils/100 WBC (Bld) 4.0 % Normal 0.9-7.0 [facility] Comment on above: Performed By: #### H FPFCBC #### [facility] [address] [place] [address] Dr. Landen Mcrae Erythrocyte distribution width (RBC) [Ratio] 12.3 % Normal 11.0-15.0 [facility] Comment on above: Performed By: #### H FPFCBC #### [facility] [address] [address] [address] Landen Mcrae Hematocrit (Bld) [Volume fraction] 41.9 % Normal 36.0-48.0 [facility] Comment on above: Performed By: #### H FPFCBC #### [facility] [address] [place] [address] Dr. Landen Mcrae Hemoglobin (Bld) [Mass/Vol] 14.1 g/dL Normal 12.0-16.0 [facility] Comment on above: Performed By: #### H FPFCBC #### [facility] [address] [place] [address] Dr. Landen Mcrae IG # 0.04 10e3/ul Critically high 0.00-0.03 [facility] Comment on above: Performed By: #### H FPFCBC #### [facility] [address] [place] [address] Dr. Landen Mcrae IG % 0.5 % Normal 0.0-0.5 [facility] Comment on above: Performed By: #### H FPFCBC #### [facility] [address] [place] [address] Dr. Landen Mcrae LYMPH # 1.6 103/ul Normal 1.2-3.8 [facility] Comment on above: Performed By: #### H FPFCBC #### [facility] [address] [place] [address] Dr. Landen Mcrae Lymphocytes/100 WBC (Bld) 17.7 % Critically low 20.5-60.0 [facility] Comment on above: Performed By: #### H FPFCBC #### [facility] [address] [place] [address] Dr. Landen Mcrae MCH (RBC) [Entitic mass] 29.5 pg Normal 26.7-34.0 [facility] Comment on above: Performed By: #### H FPFCBC #### [facility] [address] [place] [address] Dr. Landen Mcrae MCHC (RBC) [Mass/Vol] 33.7 g/dL Normal 29.9-35.2 [facility] Comment on above: Performed By: #### H FPFCBC #### [facility] [address] [place] [address] Dr. Landen Mcrae MCV (RBC) [Entitic vol] 87.7 fL Normal 81.0-99.0 [facility] Comment on above: Performed By: #### H FPFCBC #### [facility] [address] [place] [address] Dr. Landen Mcrae MONO # 0.6 103/ul Normal 0.3-0.8 [facility] Comment on above: Performed By: #### H FPFCBC #### [facility] [address] [place] [address] Dr. Landen Mcrae Monocytes/100 WBC (Bld) 7.0 % Normal 1.7-12.0 [facility] Comment on above: Performed By: #### H FPFCBC #### [facility] [address] [place] [address] Dr. Landen Mcrae NEUT # 6.2 103/ul Normal 1.4-6.5 [facility] Comment on above: Performed By: #### H FPFCBC #### [facility] [address] [place] [address] Dr. Landen Mcrae Neutrophils/100 WBC (Bld) 69.8 % Normal 43.0-75.0 [facility] Comment on above: Performed By: #### H FPFCBC #### [facility] [address] [place] [address] Dr. Landen Mcrae Platelet mean volume (Bld) [Entitic vol] 9.9 fL Normal 9.5-13.5 [facility] Comment on above: Performed By: #### H FPFCBC #### [facility] [address] [place] [address] Dr. Landen Mcrae PLT 344 103/ul Normal 150-450 [facility] Comment on above: Performed By: #### H FPFCBC #### [facility] [address] [place] [address] Dr. Landen Mcrae RBC 4.78 106/ul Normal 4.20-5.40 [facility] Comment on above: Performed By: #### H FPFCBC #### [facility] [address] [place] [address] Dr. Landen Mcrae WBC 8.8 103/ul Normal 4.0-11.0 [facility] Comment on above: Performed By: #### H FPFCBC #### [facility] [address] [place] [address] Dr. Landen Mcrae [facility] PROFILEon 022 Albumin [Mass/Vol] 3.8 g/dL Normal 3.4-5.0 [facility] Comment on above: Performed By: #### H FPF #### [facility] [address] [place] [address] Dr. Landen Mcrae Albumin/Globulin [Mass ratio] 1.4 {ratio} Normal [facility] Comment on above: Performed By: #### H FPF #### [facility] [address] [place] [address] Dr. Landen Mcrae ALP [Catalytic activity/Vol] 83 U/L Normal 46-116 [facility] Comment on above: Performed By: #### H FPF #### [facility] [address] [place] [address] Dr. Landen Mcrae ALT [Catalytic activity/Vol] 19 U/L Normal 14-59 [facility] Comment on above: Performed By: #### H FPF #### [facility] [address] [place] [address] Dr. Landen Mcrae AST [Catalytic activity/Vol] 15 U/L Normal 15-37 [facility] Comment on above: Performed By: #### H FPF #### [facility] [address] [place] [address] Dr. Landen Mcrae Bilirubin [Mass/Vol] 0.5 mg/dL Normal 0.2-1.0 [facility] Comment on above: Performed By: #### H FPF #### [facility] [address] [place] [address] Dr. Landen Mcrae Calcium [Mass/Vol] 8.9 mg/dL Normal 8.5-10.1 [facility] Comment on above: Performed By: #### H FPF #### [facility] [address] [address] [address] Landen Mcrae Chloride [Moles/Vol] 103 mmol/L Normal 98-107 [facility] Comment on above: Performed By: #### H FPF #### [facility] [address] [address] [address] Landen Mcrae CHOL-HDL RATIO NORM SEE BELOW Normal [facility] Comment on above: Result Comment: 3.3 - 4.4 LOW RISK 4.4 - 7.1 AVERAGE RISK 7.1 - 11.0 MODERATE RISK >11.0 HIGH RISK Performed By: #### H FPF #### [facility] [address] [place] [address] Dr. Landen Mcrae Cholesterol [Mass/Vol] 161 mg/dL Normal <=200 [facility] Comment on above: Performed By: #### H FPF #### [facility] [address] [place] [address] Dr. Landen Mcrae Cholesterol in HDL [Mass/Vol] 57 mg/dL Normal 40-60 [facility] Comment on above: Performed By: #### H FPF #### [facility] [address] [place] [address] Dr. Landen Mcrae Cholesterol in LDL [Mass/Vol] 88.0 mg/dL Normal [facility] Comment on above: Performed By: #### H FPF #### [facility] [address] [address] [address] Landen Mcrae Cholesterol.total/C holesterol in HDL [Mass ratio] 2.8 {ratio} Normal [facility] Comment on above: Performed By: #### H FPF #### [facility] [address] [address] [address] Landen Mcrae CO2 [Moles/Vol] 27.1 mmol/L Normal 21.0-32.0 [facility] Comment on above: Performed By: #### H FPF #### [facility] [address] [place] [address] Dr. Landen Mcrae Creatinine [Mass/Vol] 0.58 mg/dL Normal 0.55-1.02 [facility] Comment on above: Performed By: #### H FPF #### [facility] [address] [address] [address] Landen Mcrae Globulin (S) [Mass/Vol] 2.8 g/dL Normal [facility] Comment on above: Performed By: #### H FPF #### [facility] [address] [address] [address] Landen Mcrae Glucose [Mass/Vol] 88 mg/dL Normal 74-106 [facility] Comment on above: Performed By: #### H FPF #### [facility] [address] [address] [address] Landen Mcrae HDL NORMAL > or = 60 mg/dl - LO W CARDIOVASCULAR RISK <40 mg/dl - HIGH CARDIOVASCULAR RISK Normal [facility] Comment on above: Performed By: #### H FPF #### [facility] [address] [address] [address] Landen Mcrae LDL CALC NORMAL SEE BELOW Normal [facility] Comment on above: Result Comment: <100 mg/dl OPTIMAL 100 - 129 mg/dl NEAR OR ABOVE OPTIMAL 130 - 159 mg/dl BORDERLINE HIGH 160 - 189 mg/dl HIGH >190 mg/dl VERY HIGH Performed By: #### H FPF #### [facility] [address] [address] [address] Landen Mcrae Potassium [Moles/Vol] 3.8 mmol/L Normal 3.5-5.1 [facility] Comment on above: Performed By: #### H FPF #### [facility] [address] [address] [address] Landen Mcrae Protein [Mass/Vol] 6.6 g/dL Normal 6.4-8.2 [facility] Comment on above: Performed By: #### H FPF #### [facility] [address] [address] [address] Landen Mcrae Sodium [Moles/Vol] 140 mmol/L Normal 136-145 [facility] Comment on above: Performed By: #### H FPF #### [facility] [address] [address] [address] Landen Mcrae Triglyceride [Mass/Vol] 80 mg/dL Normal <=150 [facility] Comment on above: Performed By: #### H FPF #### [facility] [address] [address] [address] Landen Mcrae TSH 1.159 uIU/mL Normal 0.358-3.740 [facility] Comment on above: Performed By: #### H FPF #### [facility] [address] [address] [address] Landen Mcrae Urea nitrogen [Mass/Vol] 19.0 mg/dL Critically high 7.0-18.0 [facility] Comment on above: Performed By: #### H FPF #### [facility] [address] [address] [address] Landen Mcrae Urea nitrogen/Creatinine [Mass ratio] 32.8 mg/mg Normal [facility] Comment on above: Performed By: #### H FPF #### [facility] [address] [address] [address] Landen Mrcae VLDL CALC 16.0 mg/dL Normal [facility] Comment on above: Performed By: #### H FPF #### [facility] [address] [address] [address] Landen Mcrae CBC COMPLETE BLOOD COUNTon 01-04-2019 Erythrocyte distribution width (RBC) [Ratio] 12.7 % Normal 11.5-15.0 [facility] Comment on above: Order Comment: No: D o not add to previous draw Performed By: #### 0 0071 #### [facility] [address] [place] [address], [facility] Hematocrit (Bld) [Volume fraction] 36.4 % Normal 36.0-45.0 [facility] Comment on above: Order Comment: No: D o not add to previous draw Performed By: #### 0 0071 #### [facility] [address] [place] [address], [facility] Hemoglobin (Bld) [Mass/Vol] 12.0 g/dL Normal 12.0-15.0 [facility] Comment on above: Order Comment: No: D o not add to previous draw Performed By: #### 0 0071 #### [facility] [address] [place] [address], [facility] MCH (RBC) [Entitic mass] 29.3 pg Normal 27.0-33.0 [facility] Comment on above: Order Comment: No: D o not add to previous draw Performed By: #### 0 0071 #### [facility] [address] [facility] [address], [facility] MCHC (RBC) [Mass/Vol] 33.0 g/dL Normal 32.0-35.0 [facility] Comment on above: Order Comment: No: D o not add to previous draw Performed By: #### 0 0071 #### [facility] [address] [facility] [place] [address], [facility] MCV (RBC) [Entitic vol] 89.0 fL Normal 82.0-98.0 [facility] Comment on above: Order Comment: No: D o not add to previous draw Performed By: #### 0 0071 #### [facility] [address] [facility] [place] [address], [facility] Nucleated RBC/100 WBC (Bld) [Ratio] 0 % Normal 0-0 [facility] Comment on above: Order Comment: No: D o not add to previous draw Performed By: #### 0 0071 #### [facility] [address] [place] [address], [facility] PLAT CNT 242 10*3/uL Normal 150-400 [facility] Comment on above: Order Comment: No: D o not add to previous draw Performed By: #### 0 0071 #### [facility] [address] [facility] [place] [address], [facility] RBC (Bld) [#/Vol] 4.09 10*6/uL Normal 3.80-5.00 [facility] Comment on above: Order Comment: No: D o not add to previous draw Performed By: #### 0 0071 #### [facility] [address] [place] [address], [facility] WBC (Bld) [#/Vol] 8.63 10*3/uL Normal 4.00-10.60 [facility] Comment on above: Order Comment: No: D o not add to previous draw Performed By: #### 0 0071 #### [facility] [address] Cardiovascular Lab Reporton 11-03-2019 Cardiovascular Lab Report [facility] Patient Name: [facility] Deedee Galicia MR #: [id number] Department of Physician: [facility] Patt Roblero M.D. Division of Service Date: 11/02/2019 Cardiology Birthdate: 1970 Adult Cardiovascular Room #: 3CD 208006 [facility] [address] [place] [place] [address] Cardiovascular Laboratory Report INDICATION: The patient is a 48-year-old woman with a history of hypertension, paroxysmal atrial fibrillation, and transient ischemic attack. Her CHADS-VASc score is 4. She could not tolerate anticoagulation due to recurrent bleeding and hematuria. She has stopped the anticoagulation therapy. She had a shared care decision making with her corporate fitness program coordinator, Dr. Ian Bruce and they both agreed [...] an informed consent. She was brought to manager labor delivery in a fasting state. A transesophageal echocardiogram was performed under conscious sedation. After clearing the appendage from thrombi and doing initial measurement, access was obtained in the right common femoral vein. Using ultrasound guidance and micropuncture technique, a 6-Libyan x 11 cm sheath was placed. A preclosure in the right common femoral vein was performed using a 6-Libyan ProGlide device. An SL-1 transseptal sheath was [...] sheath was then exchanged to the Watchman 14-Libyan access sheath single curve. Note that after initial access in the right common femoral vein, 3000 units of heparin were administered and after obtaining transseptal position, full heparinization was given with therapeutic ACT confirmed during the rest of the procedure and additional heparin given as needed. A 6-Libyan angled pigtail catheter was advanced into the [...] sheath was then sent back to the pan devulcanizer for further examination. The patient tolerated the [...] Roblero M.D. Date Trans: 11/03/2019 03:13 Ira/carla [id number] cc: Kasey Pop M.D. [address] [place] [address] Normal [facility] PROTHROMBIN TIMEon 9 INR Coag (PPP) [Relative time] 1.16 {INR} Normal 0.91-1.16 [facility] Comment on above: Order Comment: [...] 1995;108:231S-246S. Performed By: #### 0 0071 #### [facility] [address] [employer] PT Coag (PPP) [Time] 14.9 s High 12.3-14.8 [facility] Comment on above: Order Comment: No: D o not add to previous draw Result Comment: ALL RESULTS MUST BE INTERPRETED WITH RESPECT TO BLOOD DRAWING ARTIFACT OR DILUTION ERROR OF ANTICOAGULANT AT THE TIME OF SAMPLING. Performed By: #### 0 0071 #### [facility] [address] [place] [address], [facility] BASIC METABOLIC PANELon 10-23 Calcium [Mass/Vol] 9.0 mg/dL Normal 8.6-10.3 [facility] Comment on above: Performed By: #### 0 0071 #### [facility] [address] [place] [address], [place] Chloride [Moles/Vol] 102 mmol/L Normal 98-107 [facility] Comment on above: Performed By: #### 0 0071 #### [facility] [address] [place] [address], [place] CO2 [Moles/Vol] 29 mmol/L Normal 21-31 [facility] Comment on above: Performed By: #### 0 0071 #### [facility] [address] [place] [address], [place] Creatinine [Mass/Vol] 0.61 mg/dL Normal 0.60-1.20 [facility] Comment on above: Performed By: #### 0 0071 #### [facility] [address] [place] [address], [place] GFR/1.73 sq M predicted among blacks MDRD (S/P/Bld) [Vol rate/Area] mL/min/{1.73_m2} Normal >60 [facility] Comment on above: Performed By: #### 0 0071 #### [facility] [address] [place] [address], [place] GFR/1.73 sq M predicted among non-blacks MDRD (S/P/Bld) [Vol rate/Area] mL/min/{1.73_m2} Normal >60 [facility] Comment on above: Performed By: #### 0 0071 #### [facility] [address] [place] [address], [place] Glucose [Mass/Vol] 97 mg/dL Normal 70-100 [facility] Comment on above: Performed By: #### 0 0071 #### [facility] [address] [place] [address], [place] Potassium [Moles/Vol] 3.2 mmol/L Low 3.5-5.1 [facility] Comment on above: Performed By: #### 0 0071 #### [facility] [address] [place] [address], [facility] Sodium [Moles/Vol] 139 mmol/L Normal 136-145 [facility] Comment on above: Performed By: #### 0 0071 #### [facility] [address] [place] [address], [facility] Urea nitrogen [Mass/Vol] 16 mg/dL Normal 7-25 [facility] Comment on above: Performed By: #### 0 0071 #### [facility] [address] [place] [id number], [facility] CBC COMPLETE BLOOD COUNTon 01-03-2019 Erythrocyte distribution width (RBC) [Ratio] 12.4 % Normal 11.5-15.0 [facility] Comment on above: Performed By: #### 5 0608 #### [facility] [address] [place] [address], [facility] Hematocrit (Bld) [Volume fraction] 47.3 % High 36.0-45.0 [facility] Comment on above: Performed By: #### 5 0608 #### [facility] [address] [place] [address], [facility] Hemoglobin (Bld) [Mass/Vol] 15.7 g/dL High 12.0-15.0 [facility] Comment on above: Performed By: #### 5 0608 #### [facility] [address] [place] [address], [facility] MCH (RBC) [Entitic mass] 28.9 pg Normal 27.0-33.0 [facility] Comment on above: Performed By: #### 5 0608 #### [facility] [address] [place] [address], [facility] MCHC (RBC) [Mass/Vol] 33.2 g/dL Normal 32.0-35.0 [facility] Comment on above: Performed By: #### 5 0608 #### [facility] [address] [place] [address], [facility] MCV (RBC) [Entitic vol] 87.1 fL Normal 82.0-98.0 [facility] Comment on above: Performed By: #### 5 0608 #### [facility] [address] [place] [address], [facility] Nucleated RBC/100 WBC (Bld) [Ratio] 0 % Normal 0-0 [facility] Comment on above: Performed By: #### 5 0608 #### [facility] [address] [place] [address], [facility] PLAT CNT 359 10*3/uL Normal 150-400 [facility] Comment on above: Performed By: #### 5 0608 #### [facility] [address] [place] [address], [facility] RBC (Bld) [#/Vol] 5.43 10*6/uL High 3.80-5.00 [facility] Comment on above: Performed By: #### 5 0608 #### [facility] [address] [place] [address], [facility] WBC (Bld) [#/Vol] 12.09 10*3/uL High 4.00-10.60 [facility] Comment on above: Performed By: #### 5 0608 #### [facility] [address] PROTHROMBIN TIMEon 9 INR Coag (PPP) [Relative time] 1.17 {INR} High 0.91-1.16 [facility] Comment on above: Order Comment: [...] 1995;108:231S-246S. Performed By: #### 5 6101 #### [facility] [address] PT Coag (PPP) [Time] 15.0 s High 12.3-14.8 [facility] Comment on above: Order Comment: No: D o not add to previous draw Result Comment: ALL RESULTS MUST BE INTERPRETED WITH RESPECT TO BLOOD DRAWING ARTIFACT OR DILUTION ERROR OF ANTICOAGULANT AT THE TIME OF SAMPLING. Performed By: #### 5 6101 #### [facility] [address] *MRSA/MSSA DNA NASALon 06-17 *MRSA/MSSA DNA NASAL Clinical Report: (D) Specimen: NASAL SWAB Collected: 06/17/2019 11:45 Status: Final Last Updated: 06/17/2019 18:47 MSSA DNA (Final) Negative MRSA DNA (Final) Methicillin Resistant Staphylococcus aureus DNA Detected Normal [facility] Comment on above: Performed By: #### 3 1595 #### [facility] [address] APTTon 06-17-2019 aPTT Coag (Bld) [Time] 30.5 s Normal 25.0-35.0 [facility] Comment on above: Result Comment: [...] THIS PURPOSE. Performed By: #### 5 7307, 04741 #### [facility] [address] [place] [address], [facility] BASIC METABOLIC PANELon 05-24 Calcium [Mass/Vol] 9.4 mg/dL Normal 8.6-10.3 [facility] Comment on above: Performed By: #### 0 0071 #### [facility] [address] [place] [address], [facility] Chloride [Moles/Vol] 102 mmol/L Normal 98-107 [facility] Comment on above: Performed By: #### 0 0071 #### [facility] [address] [place] [address], [place] CO2 [Moles/Vol] 28 mmol/L Normal 21-31 [facility] Comment on above: Performed By: #### 0 0071 #### [facility] [address] [place] [address], [facility] Creatinine [Mass/Vol] 0.56 mg/dL Low 0.60-1.20 [facility] Comment on above: Performed By: #### 0 0071 #### [facility] [address] [place] [address], [place] GFR/1.73 sq M predicted among blacks MDRD (S/P/Bld) [Vol rate/Area] mL/min/{1.73_m2} Normal >60 [facility] Comment on above: Performed By: #### 0 0071 #### [facility] [address] [place] [address], [facility] GFR/1.73 sq M predicted among non-blacks MDRD (S/P/Bld) [Vol rate/Area] mL/min/{1.73_m2} Normal >60 [facility] Comment on above: Performed By: #### 0 0071 #### [facility] [address] [place] [address], [place] Glucose [Mass/Vol] 93 mg/dL Normal 70-100 [facility] Comment on above: Performed By: #### 0 0071 #### [facility] [address] [place] [address], [place] Potassium [Moles/Vol] 3.3 mmol/L Low 3.5-5.1 [facility] Comment on above: Performed By: #### 0 0071 #### [facility] [address] [place] [address], [place] Sodium [Moles/Vol] 139 mmol/L Normal 136-145 [facility] Comment on above: Performed By: #### 0 0071 #### [facility] [address] [place] [address], [place] Urea nitrogen [Mass/Vol] 17 mg/dL Normal 7-25 [facility] Comment on above: Performed By: #### 0 0071 #### [facility] [address] [place] [address], [facility] CBC COMPLETE BLOOD COUNTon 0 06-17-2019 Erythrocyte distribution width (RBC) [Ratio] 12.7 % Normal 11.5-15.0 [facility] Comment on above: Performed By: #### 5 0608 #### [facility] [address] [place] [address], [facility] Hematocrit (Bld) [Volume fraction] 45.3 % High 36.0-45.0 [facility] Comment on above: Performed By: #### 5 0608 #### [facility] [address] [place] [address], [facility] Hemoglobin (Bld) [Mass/Vol] 15.4 g/dL High 12.0-15.0 [facility] Comment on above: Performed By: #### 5 0608 #### [facility] [address] [place] [address], [facility] MCH (RBC) [Entitic mass] 29.1 pg Normal 27.0-33.0 [facility] Comment on above: Performed By: #### 5 0608 #### [facility] [address] [place] [address], [facility] MCHC (RBC) [Mass/Vol] 34.0 g/dL Normal 32.0-35.0 [facility] Comment on above: Performed By: #### 5 0608 #### [facility] [address] [place] [address], [facility] MCV (RBC) [Entitic vol] 85.5 fL Normal 82.0-98.0 [facility] Comment on above: Performed By: #### 5 0608 #### [facility] [address] [place] [address], [facility] Nucleated RBC/100 WBC (Bld) [Ratio] 0 % Normal 0-0 [facility] Comment on above: Performed By: #### 5 0608 #### [facility] [address] [place] [address], [facility] PLAT CNT 417 10*3/uL High 150-400 [facility] Comment on above: Performed By: #### 5 0608 #### [facility] [address] [place] [address], [facility] RBC (Bld) [#/Vol] 5.30 10*6/uL High 3.80-5.00 [facility] Comment on above: Performed By: #### 5 0608 #### [facility] [address] [place] [address], [facility] WBC (Bld) [#/Vol] 10.62 10*3/uL [facility] 4.00-10.60 [facility] Comment on above: Performed By: #### 5 0608 #### [address] CHEST AND LATERALon 06-17-20 CHEST AND LATERAL [facility] Department of Radiology [address] [place] [id number] Patient Name: DEEDEE STANLEY : 1970 [...] findings. Electronically signed by:Madhav Harley. Transcribed by: [email or web address], User Resident: ITALIA KNAPP Electronically Signed by: MADHAV HARLEY @ 06/17/2019 04:12 PM I personally read this/these film(s) with this resident Normal [facility] Comment on above: Order Comment: H/O a trial fibrillation PROTHROMBIN TIMEon 9 INR Coag (PPP) [Relative time] 0.97 {INR} Normal 0.91-1.16 [facility] Comment on above: Result Comment: [...] CHEST 1995;108:231S-246S. Performed By: #### 5 7307, [address] #### [place] [address] [address] PT Coag (PPP) [Time] 12.9 s Normal 12.3-14.8 [facility] Comment on above: Result Comment: ALL RESULTS MUST BE INTERPRETED WITH RESPECT TO BLOOD DRAWING ARTIFACT OR DILUTION ERROR OF ANTICOAGULANT AT THE TIME OF SAMPLING. Performed By: #### 5 7307, 51350 #### [facility] [address] [place] [address], [facility] TYPE AND SCREENon 06-17-2019 ABO INTERPRETATION A Normal [facility] Comment on above: Performed By: #### 6 2586 #### [facility] [address] [place] [address], [place] RH INTERPRETATION Positive Normal [facility] Comment on above: Performed By: #### 6 2586 #### [facility] [address] [place] [address], [facility] Basic Metabolic Panelon 04- Calcium mass conc 9.4 mg/dL Normal 8.2-10.2 [facility] Comment on above: Performed By: #### C BC, PT, PTT, BMP #### [facility] [address] Chloride molar conc 101 mmol/L Normal 95-114 [facility] Comment on above: Performed By: #### C BC, PT, PTT, BMP #### [facility] [address] CO2 molar conc 24.1 mmol/L Normal 22.0-30.0 [facility] Comment on above: Performed By: #### C BC, PT, PTT, BMP #### [facility] [address] Creatinine mass conc 0.60 mg/dL Normal 0.44-1.03 [facility] Comment on above: Performed By: #### C BC, PT, PTT, BMP #### [facility] [address] Creatinine mass conc 90.9067438082 mg/dL Normal [facility] Comment on above: Result Comment: PERF ORMED BY: [place] [address] PATHOLOGIST CREDIT PROCESSOR JIANLAN SUN M.D. Performed By: #### C BC, PT, PTT, BMP #### [facility] [address] [place] [address] [place] Estimated GFR ( Mehreen > 60 Normal [facility] Comment on above: Result Comment: GFR estimated reference range: According to KDOQI guidelines, <60 ml/min/1.73m2 is sufficient to diagnose a patient with chronic kidney disease. Performed By: #### C BC, PT, PTT, BMP #### [facility] [address] [place] [address] [place] Estimated GFR (Non- Am > 60 Normal [facility] Comment on above: Performed By: #### C BC, PT, PTT, BMP #### [facility] [address] Glucose mass conc 116 mg/dL High 70-100 [facility] Comment on above: Result Comment: [place] om Glucose Reference Range is dependent on time and content of last meal. Glucose of more than 200 mg/dL in a nonstressed, ambulatory subject supports the diagnosis of Diabetes Mellitus. ADA recommended reference range Performed By: #### C BC, PT, PTT, BMP #### [facility] [address] Potassium molar conc 3.5 mmol/L Normal 3.5-5.1 [facility] Comment on above: Performed By: #### C BC, PT, PTT, BMP #### [facility] [address] [place] [address] [place] Sodium molar conc 137 mmol/L Normal 136-146 [facility] Comment on above: Performed By: #### C BC, PT, PTT, BMP #### [facility] [address] [place] [address] [place] Urea nitrogen mass conc 19 mg/dL Normal 9-23 [facility] Comment on above: Performed By: #### C BC, PT, PTT, BMP #### [facility] [address] [place] [address] CT abdomen pelvis wo conon 0 02-22-2019 CT abdomen pelvis wo con [facility] [address] [place] [address] CT Scan Report Signed Patient: Todd Stanley MR#: [id number] : 1970 Acct:[id number] Age/Sex: 48 / F ADM Date: 02/22/19 Loc: ER Room: Type: [facility] ER Attending Dr: Ordering Provider: [place]alia [...] 02/22/19 1514 Signed By: 02/22/19 1521 Normal [facility] Complete Blood Count Auto Di ffon 02-22-2019 Basophils #/vol (Bld) 0.1 10*3/uL Normal 0.0-0.2 [facility] Comment on above: Result Comment: PERF ORMED BY: [place] [address] PATHOLOGIST CREDIT PROCESSOR ARELIS MONTEMAYOR M.D. Performed By: #### C BC, PT, PTT, BMP #### [facility] [address] [place] [address] Basophils/100 WBC (Bld) 0.8 % Normal . [facility] Comment on above: Performed By: #### C BC, PT, PTT, BMP #### [facility] [address] [place] [address] Eosinophils #/vol (Bld) 0.2 10*3/uL Normal 0.0-0.45 [facility] Comment on above: Performed By: #### C BC, PT, PTT, BMP #### [facility] [address] [place] [address] Eosinophils/100 WBC (Bld) 2.1 % Normal . [facility] Comment on above: Performed By: #### C BC, PT, PTT, BMP #### [facility] [address] [place] [address] Erythrocyte distribution width Ratio (RBC) 13.9 % Normal 11.9-15.3 [facility] Comment on above: Performed By: #### C BC, PT, PTT, BMP #### [facility] [address] [place] [address] Hematocrit Volume Fraction (Bld) 39.6 % Normal 34.0-46.4 [facility] Comment on above: Performed By: #### C BC, PT, PTT, BMP #### [facility] [address] Hemoglobin mass conc (Bld) 13.2 g/dL Normal 11.8-15.4 [facility] Comment on above: Performed By: #### C BC, PT, PTT, BMP #### [address] Lymphocytes #/vol (Bld) 1.3 10*3/uL Normal 1.00-4.8 [facility] Comment on above: Performed By: #### C BC, PT, PTT, BMP #### [address] Lymphocytes/100 WBC (Bld) 11.5 % Normal . [facility] Comment on above: Performed By: #### C BC, PT, PTT, BMP #### [address] MCH Entitic mass (RBC) 28.5 pg Normal 24.7-34.3 [facility] Comment on above: Performed By: #### C BC, PT, PTT, BMP #### [address] MCH Entitic mass (RBC) 33.3 g/dL Normal 32.0-35.0 [facility] Comment on above: Performed By: #### C BC, PT, PTT, BMP #### [address] MCV Entitic volume (RBC) 85.6 fL Normal 80-100 [facility] Comment on above: Performed By: #### C BC, PT, PTT, BMP #### [address] Monocytes #/vol (Bld) 0.8 10*3/uL Normal 0.0-0.8 [facility] Comment on above: Performed By: #### C BC, PT, PTT, BMP #### [place] [address] [place] Monocytes/100 WBC (Bld) 7.0 % Normal . [facility] Comment on above: Performed By: #### C BC, PT, PTT, BMP #### [facility] [address] [place] [address] Neutrophils #/vol (Bld) 9.1 10*3/uL High 1.8-7.7 [facility] Comment on above: Performed By: #### C BC, PT, PTT, BMP #### [facility] [address] [place] [address] Neutrophils/100 WBC (Bld) 78.6 % Normal . [facility] Comment on above: Performed By: #### C BC, PT, PTT, BMP #### [address] Nucleated RBC/100 WBC Ratio (Bld) 0.0 % Normal 0-0.5 [facility] Comment on above: Performed By: #### C BC, PT, PTT, BMP #### [address] Platelet mean volume Entitic volume (Bld) 8.3 fL Normal 6.3-10.7 [facility] Comment on above: Performed By: #### C BC, PT, PTT, BMP #### [address] Platelets #/vol (Bld) 319 10*3/uL Normal 150-450 [facility] Comment on above: Performed By: #### C BC, PT, PTT, BMP #### [address] RBC #/vol (Bld) 4.62 10*6/uL Normal 3.60-5.00 [facility] Comment on above: Performed By: #### C BC, PT, PTT, BMP #### [facility] [address] [place] [address] WBC #/vol (Bld) 11.6 10*3/uL High 4.5-11.0 [facility] Comment on above: Performed By: #### C BC, PT, PTT, BMP #### [address] [address] [place] Dipstick and Microscopicon 0 02-22-2019 Appearance Nom (U) Turbid Critically abnormal Clear [facility] Comment on above: Order Comment: Name Collection Type: Clean-Voided Midstream Performed By: #### A DDONUAPLUS, CUU #### [facility] [address] [place] [address] [place] Bacteria LM.HPF #/area (Urine sed) 1+ High None Seen [facility] Comment on above: Order Comment: Name Collection Type: Clean-Voided Midstream Result Comment: PERF ORMED BY: [place] [address] PATHOLOGIST CREDIT PROCESSOR ARELIS MONTEMAYOR M.D. Performed By: #### A DDONUAPLUS, CUU #### [facility] [address] [place] [address] [place] Bilirubin,Urine 2+ High Negative [facility] Comment on above: Order Comment: Name Collection Type: Clean-Voided Midstream Performed By: #### A DDONUAPLUS, CUU #### [facility] [address] [place] [address] [place] Color Nom (U) Red Critically abnormal Yellow [facility] Comment on above: Order Comment: Name Collection Type: Clean-Voided Midstream Performed By: #### A DDONUAPLUS, CUU #### [facility] [address] [place] [address] [place] Glucose Ql (U) 100 mg/dL High Normal [facility] Comment on above: Order Comment: Name Collection Type: Clean-Voided Midstream Performed By: #### A DDONUAPLUS, CUU #### [facility] [address] [place] [address] [place] Ketones Ql (U) 1+ High Negative [facility] Comment on above: Order Comment: Name Collection Type: Clean-Voided Midstream Performed By: #### A DDONUAPLUS, CUU #### [facility] [address] [place] [address] [place] Leukocyte esterase Test strip Ql (U) 3+ High Negative [facility] Comment on above: Order Comment: Name Collection Type: Clean-Voided Midstream Performed By: #### A DDONUAPLUS, CUU #### [place] [address] [place] Nitrite,Urine Positive High Negative [facility] Comment on above: Order Comment: Name Collection Type: Clean-Voided Midstream Performed By: #### A DDONUAPLUS, CUU #### [address] Occult Blood,Urine 3+ High Negative [facility] Comment on above: Order Comment: Name Collection Type: Clean-Voided Midstream Result Comment: PERF ORMED BY: [place] [address] PATHOLOGIST CREDIT PROCESSOR ARELIS MONTEMAYOR M.D. Performed By: #### A DDONUAPLUS, CUU #### [address] pH (U) 6.5 [pH] Normal 5.0-9.0 [facility] Comment on above: Order Comment: Name Collection Type: Clean-Voided Midstream Performed By: #### A DDONUAPLUS, CUU #### [address] Protein mass conc (U) mg/dL High Negative [facility] Comment on above: Order Comment: Name Collection Type: Clean-Voided Midstream Performed By: #### A DDONUAPLUS, CUU #### [place] [address] [place] RBC LM.HPF #/area (Urine sed) Innumerable High 0-4 [facility] Comment on above: Order Comment: Name Collection Type: Clean-Voided Midstream Performed By: #### A DDONUAPLUS, CUU #### [place] [address] [place] Specificy [place],Urine 1.025 Normal 1.001-1.030 [facility] Comment on above: Order Comment: Name Collection Type: Clean-Voided Midstream Performed By: #### A DDONUAPLUS, CUU #### [address] Squamous Epithelial Cell,Urine 3-4 High 0-2 [facility] Comment on above: Order Comment: Name Collection Type: Clean-Voided Midstream Performed By: #### A DDONUAPLUS, CUU #### [address] Urobilinogen,Urine >=2 High Normal [facility] Comment on above: Order Comment: Name Collection Type: Clean-Voided Midstream Performed By: #### A DDONUAPLUS, CUU #### [address] WBC LM.HPF #/area (Urine sed) 10-19 High 0-4 [facility] Comment on above: Order Comment: Name Collection Type: Clean-Voided Midstream Performed By: #### A DDONUAPLUS, CUU #### [address] Partial Thromboplastin Timeo n 02-22-2019 aPTT Coag time (Bld) 34.2 s Normal 23.0-35.0 [facility] Comment on above: Result Comment: PERF ORMED BY: [place] [address] PATHOLOGIST CREDIT PROCESSOR ARELIS MONTEMAYOR M.D. Performed By: #### C BC, PT, PTT, BMP #### [address] Prothrombin Time INRon 02-22 INR Coag RelTime (PPP) 1.2 {INR} Normal [facility] Comment on above: Result Comment: INR Therapeutic [...] #### C BC, PT, PTT, BMP #### [address] [place] [address] [facility] Prothrombin time (PT) Coag time (PPP) 14.3 s High 9.0-12.9 [facility] Comment on above: Performed By: #### C BC, PT, PTT, BMP #### [facility] [address] Urine Cultureon 02-22-2019 Bacteria identified Cx Nom (U) No Growth 2 Days PERFORMED BY: [place] [address] PATHOLOGIST CREDIT PROCESSOR ARELIS MONTEMAYOR M.D. Normal [facility] Comment on above: Performed By: #### A DDONUAPLUS, CUU #### [address] Vital Signs Date Time Vital Sign Value Performing Clinician Facility 01-13-2025 16:51-0500 Body height 157.48 cm [facility] 01-13-2025 16:51-0500 Body mass index (BMI) [Ratio] 24.3 kg/m2 [facility] 01-13-2025 16:51-0500 Body temperature 97.7 [degF] [facility] 01-13-2025 16:51-0500 Body weight 60.32 kg [facility] 01-13-2025 16:51-0500 Diastolic blood pressure 81 mm[Hg] [facility] 01-13-2025 16:51-0500 Heart rate 74 /min [facility] 01-13-2025 16:51-0500 Respiratory rate 18 /min [facility] 01-13-2025 16:51-0500 SaO2% (BldA) [Mass fraction] 98 % [facility] 01-13-2025 16:51-0500 Systolic blood pressure 127 mm[Hg] [facility] 09-08-2021 13:05-0400 Body height 157.48 cm Monica Garcia Other [facility] Other 09-08-2021 13:05-0400 Body mass index (BMI) [Ratio] 24.32 kg/m2 Monica Garcia Other [facility] Other 09-08-2021 13:05-0400 Body temperature 97.1 [degF] Monica Garcia Other [facility] Other 09-08-2021 13:05-0400 Body weight 60.33 kg Monica Garcia Other [facility] Other 09-08-2021 13:05-0400 Diastolic blood pressure 94 mm[Hg] Monica Garcia Other [facility] Other 09-08-2021 13:05-0400 Respiratory rate 18 /min Monica Garcia Other [facility] Other 09-08-2021 13:05-0400 SaO2% (BldA) [Mass fraction] 100 % Monica Garcia Other [facility] Other 09-08-2021 13:05-0400 Systolic blood pressure 144 mm[Hg] Monica Garcia Other [facility] Other Encounters Encounter Date Encounter Type Care Provider Facility Start: 01-13-2025 End: 01-13-2025 ambulatory [facility] Work Phone: Start: 01-13-2025 End: 01-13-2025 Patient encounter procedure [facility] Work Phone: Start: 10-10-2024 End: 10-10-2024 ambulatory [facility] Start: 07-12-2024 End: 07[facility]12-[facility]: 06-09-[facility]24 [facility] Start: 06-09-2024 End: 06-09-2024 ambulatory [facility] Start: 06-02-2024 End: 06-02-2024 ambulatory [facility] Start: 05-24-2024 ambulatory [facility] Start: 05-12-2024 End: 05-12-2024 ambulatory STANLEY REYES [facility] Start: 05-10-2024 End: 05-10-2024 ambulatory [facility] Start: 12-24-2023 End: 12-25-2023 ambulatory Alexandria Fernandez Facility:[facility] Start: 12-24-2023 End: 12-24-2023 Patient encounter procedure Alexandria Fernandez [facility] Start: 04-02-2023 End: 04-03-2023 ambulatory CLEMENT PEREZ Facility: Start: 07-20-[address] AUNG Cardozo Facility: Start: 07-10-2022 End: 07-11-[address] KASEY POP . Facility: Start: 09-08-2021 Office outpatient vi sit 15 minutes Monica SOLIS [facility] Start: 11-02-2019 End: 11-03-2019 Evaluation and management of inpatient PROVIDER UNKNOWN Facility:[facility] Start: 06-17-2019 End: 06-18-2019 Patient encounter procedure NITA CHIANG Facility:[facility] Start: 02-22-2019 End: 02-22-2019 Emergency department patient visit Italia Pruitt Facility:[facility] Start: 12-29-2018 End: 12-30-2018 Patient encounter procedure JODI MEZA Facility:[facility] Procedures Date Procedure Procedure Detail Performing Clinician Start: 12-28-2021 Cystoscopy Alexandria Nelson pe Start: 11-07-2020 Cardiac pacemaker, d evice (physical object) Alexandria Fernandez Start: 11-02-2019 OCCLUSION OF JOHN WIT H INTRALUM DEV, PERC APPROACH MARIO Gloria ROBLERO Start: 11-02-2019 ULTRASONOGRAPHY OF L EFT HEART, TRANSESOPHAGEAL JODI MEZA Start: 06-17-2019 Antibody screen JODI HIGGINS Comment on above: Performed By: #### 6 [id number] #### [facility] [address], [facility] Start: 01-06-2019 Cystourethroscopy wi th dilation of urethral stricture Alexandria Jim section Alexandria Lamp e H/O: hysterectomy History of hysterectomy Hysterectomy Alexandria Jim Immunizations Immunization Date Immunization Notes Care Provider Fa cility 01-25-2021 SARS-CoV-2 (COVID-19 ) mRNA BNT-162b2 vax Alexandria Jim [facility] 01-04-2021 SARS-CoV-2 (COVID-19 ) mRNA BNT-162b2 vax Alexandria Jim [facility] NEGATED: Highlighted row has not occurred!11-11-2021 influenza virus vaccine, unspecified formulation Alexandria Fernandez [facility] NEGATED: Highlighted row has not occurred!11-28-2018 influenza, injectable, quadrivalent, preservative free [facility] Payers Date Payer Category Payer Self-pay 1970 Unknown [id number] [id number] [id number] 1970 Unknown [id number] 2.16.8 [id number] 1970 Unknown [id number] 2.16.8 [id number] 1970 Unknown [id number] 2.16.84 [id number] 1970 Unknown [id number] 2.16.84 [id number] 1970 Unknown [id number] 2.16.8 [id number] 1959 Self-pay [id number] 1959 Unknown [id number] Unknown [id number] Unknown [id number] 2.16.84 [id number] Social History Date Type Detail Facility Unknown if ever smoked [facility] Other Sex Assigned At [facility] Start: 01-13-2022 End: 01-13-2025 Tobacco smoking status Never smoked tobacco (finding) [facility] Tobacco smoking status Never [facility] Start: 01-13-2025 Sex Female (finding) [facility] Start: 1970 Sex Assigned At Female F [facility] Clinical Notes 09-08-2021 to 11-03-2024 Note Date & Type Note Facility 11-03-2024 Note Addendum created 11/15 by Rafael Miranda MD Attestation recorded in Intraprocedure, Flowsheet accepted, Intraprocedure Attestations filed [facility] 10-13-2024 Note PharmD Consult - Josi or Authorization Referring Provider: Dr. Clement Perez PharmD received consult from provider to assist with coverage of Xarelto. Pertinent PMH includes Afib. Patient does have insurance. Insurance type: Commercial Xarelto requires prior authorization. Completed on CoverMyMeds. Per CoverMyMeds: This request has been approved using information available on the patient's profile. CaseId:[id number];Status:Approved;Review Type:Prior Auth;Coverage Start Date:09/13/2024;Coverage End Date:10/13/2025 Please notify patient. Jennifer Andre PharmD Cardiology Outpatient Clinical Pharmacist 10/13/24 [facility] 10-10-2024 Note [place] Cardiology - [facility] Subjective Todd Stanley is a 53 [...] fascicular block.NS T changes Echo: 07/22/2024 at [facility] Stress test: Cardiac cath: EP procedure 06/09/2024 NAME OF THE PROCEDURE: Pulmonary Vein Isolation and Comprehensive EP study. INDICATIONS FOR PROCEDURE: 1. Early Persistent atrial fibrillation. FLUROSCOPY: 4.9minutes/ 21mGy. EBL: 15cc SPECIMEN REMOVED: None PROCEDURES PERFORMED: 1. Sonosite guided venous (more content not included)... [facility] 07-12-2024 Note Cardiovascular Medic ine [facility] SUBJECTIVE Chief Complaint Patient presents with [...] Final QTC CALCULATION(BAZETT) 06/09/2024 495 ms Final R-Arvada 06/09/2024 74 degrees Final T Wave [place] 06/09/2024 -85 degrees Final Protime 06/09/2024 12.9 12.3 - 14.8 Seconds Final INR 06/09/2024 0.97 0.90 - 1.10 Final Glucose POC 06/09/2024 104 70 - 105 mg/dL Final Ventricular Rate 06/09/2024 69 BPM Final QRS DURATION 06/09/2024 92 ms Final QT Interval 06/09/2024 464 ms Final QTC CALCULATION(BAZETT) 06/09/2024 497 ms Final R-Arvada 06/09/2024 -58 degrees Final T Wave [place] 06/09/2024 87 degrees Final POCT ACT 06/09/2024 400 (A) 82 - 152 seconds In process QC Pass/Fail 06/09/2024 Passed In process QC LOT # 06/09/2024 18 In process QC (more content not included)... [facility] 07-12-2024 Note Pt is here for follo w up from afib ablation. Review of Systems Musculoskeletal: Positive for myalgias. All other systems reviewed and are negative. [facility] 06-09-2024 Note ATRIAL FIBRILLATION ABLATION [...] were placed. Esophagus was mapped using the [employer]eko[employer] 3D mapping software and noted to be [...] transseptal was perform (more content not included)... [facility] 06-09-2024 Note Patient: Todd palomares Procedure Summary Date: 06/09/24 Room / Location: [facility] CORRECTIONAL CASEWORK SPECIALIST 1 / [facility]ULAR [facility] (Cath) Anesthesia Start: 831 Anesthesia [...] and follow verbal commands throughout transport process [facility] 06-09-2024 Note Patient: Todd palomares Procedure Summary Date: 06/09/24 Room / Location: [facility] CORRECTIONAL CASEWORK SPECIALIST 1 EP / [facility] (Cath) Anesthesia Start: 831 Anesthesia [...] per anesthesia protocol. No notable events documented. [facility] 06-09-2024 Note Airway Date/Time: 06/09/2024 8:52 AM Urgency: elective Airway not difficult General Information and Staff Patient location during procedure: OR Anesthesiologist: Rafael Miranda MD Resident/MULTIPLE SLIDE OPERATOR/CAA: Iliana Gandara MD Performed: other anesthesia staff [...] 1 Number of other approaches attempted: 0 [facility] 06-09-2024 Note Arterial Line: Date/Time: [...] mL - 06/09/2024 7:35:00 AM Staffing Performed: resident/MULTIPLE SLIDE OPERATOR/CAA Anesthesiologist: Rafael Miranda MD Resident/MULTIPLE SLIDE OPERATOR: Iliana Gandara MD Performed by: Iliana Gandara MD Authorized by: Iliana Gandara MD [facility] 06-09-2024 Note Patient: Todd palomares Procedure Information Date/Time: 06/09/24 0800 Procedure: Ablation a-fib paroxysmal Location: [facility] CORRECTIONAL CASEWORK SPECIALIST 1 EP / [facility]ASCULAR [facility] (Cath) Providers: Clement Perez [...] Plan discussed with attending. Additional Equipment Requests [facility] 05-24-2024 Note Date of Telehealth V isit: 05/24/24 The patient was notified that using 3rd constitution party telecommunication application (e.g., [employer]) is not HIPPA compliant and may carry some privacy risks. Yes The visit was conducted [id number] with the use of audio and video [...] documentation in this note for specific details. [place] Electrophysiology Consult Note Reason for visit: s/p [...] Intimate Partner Violence: Not At Risk (06/08/2023) [place] Safety & Environment Fear of Current or [...] reviewed and are negative. Physical Exam: Tele [facility] Labs: @LABRESULTS@ No results found for: CHOLESTEROL TOTAL , HDL , LDL CALC , LDL DIRECT , TRIGLYCERIDES , TSH , T3 TOTAL , T4 TOTAL , THYROID PEROXIDASE AB , BNP EKG: Encounter Date: 06/09/24 ECG 12 lead Result Value Ventricular Rate 69 QRS DURATION 92 QT Interval 464 QTC CALCULATION(BAZETT) 497 R-Arvada -58 T Wave Arv[place] 87 Impression Atrial pacemaker with premature supraventricular [...] in left submuscular site with underlying PLSVC: [place] discomfort in the device site has markedly decreased. there is no evidence of infection or discharge. - PLSVC - AF s/p WATCHMAN Afib ablation would require placement of multiple catheters in the heart under moderate sedation which will include diagnostic catheters, ICE catheters and ablation catheters. The risk of the procedures can be described as minor and major min (more content not included)... [facility] 05-12-2024 Note Device interrogation q 6 months [facility] 05-12-2024 Note stable [facility] 05-12-2024 Note Continue lisinopril and Diltiazem- provider asked pt to check b/p at home 1-2 times/day and goal is < 130/80- she voiced understanding that staff will call her in 1-2 weeks to review b/p log and she is to call office. [facility] 05-12-2024 Note Stable s/p SVT Ablat ion 2008- remains on diltiazem. [facility] 05-12-2024 Note Stable s/p PPM implantation [facility] 05-12-2024 Note Patient here for 1 y ear follow up sinus node dysfunction s/p PPM and afib s/p Watchman implant. Her device was interrogated in the office 2 days ago. She denies chest pain, SOB, palpitations, and lightheadedness/syncope. Review of Systems Musculoskeletal: Positive for myalgias. All other systems reviewed and are negative. [facility] 05-12-2024 Note [facility] CARDIOLOGY PROGR [...] with Dr Perez- possible a fib abalation. [facility] 06-20-2024 Note - AF s/p [...] rate remains controlled, she denied any symptoms [facility] 09-08-2021 Evaluation note Encounter Date Diagnosis Assessment Notes Aug, Herpes zoster without complication (ICD-10 - B02.9) Drink plenty fluids, get plenty of rest. Continue home medications as prescribed. Take the Valtrex as prescribed until gone. Consider using qosj-moi-xdkuo er capsaicin cream to the rash for pain. Follow-up with your family physician if no improvement in 2 to 3 days. [facility] Other Evaluation + Plan note No data available for this section [facility] Diagnosis Onset Date Resolution Status Admit Date Contact with or suspected exposure to severe acute respiratory syndrome noneactive January 132024 4:37pm [facility] Work Phone: Hispjyc general Narrative - Reported* Type Description Date Medical History stroke Medical History heart disease Medical History htn Surgical History hysterectomy Surgical History pacemaker Surgical History watchman Hospitalization History see above Hospitalization History stroke 2019 [facility] Other Hospital Discharge instructions No data available for this section [facility] No data available for this section [facility] Summary Purpose Family History Relationship Condition Age at Onset Recorded Date/T burke father Malignant neoplasm Unknown Hypertension Unknown Diabetes mellitus Unknown Unknown Advance Directives Advance Directive Response Recorded Date/ Time Advance Directives No November 26, 2018 6:24pm Hospital Course Note MR#: [id number] [facility] Pt. Name: Deedee Stanley Admitted: 11/02/2019 [...] a shared care decision making with her corporate fitness program coordinator, Dr. Ian Bruce, they both agreed that [...] section and content) DATE CREATED AUTHOR 02/26/2019 [facility] DATE CREATED AUTHOR AUTHOR'S ORGANIZ ATION 12/20/2019 [facility] DATE CREATED AUTHOR AUTHOR'S ORGANIZ ATION 04/05/2023 [facility] DATE CREATED AUTHOR AUTHOR'S ORGANIZ ATION 12/28/2023 [facility] DATE CREATED AUTHOR AUTHOR'S ORGANIZ ATION 12/24/2024 [facility] REASON FOR VISIT (unrecogniz ed section and content) RASH ON BACK OF NECK FOR 3 D AYS Patient Care team informatio n (unrecognized section and content) Team Status: Active Member Role Status Vanessa Pop MD Primary Care Provider Active Team Status: Inactive Member Role Status Dates Kasey Pop MD Primary Care Provider Active Start: [...] BE BASED ON THE PRIMARY CLINICAL RECORDS. [employer] [facility]. provides no warranty or guarantee of the accuracy or completeness of information in this document.
--- NOTE | 2025-01-27 15:13 | CM.DCFOLLOWU ---
Person spoke with:patient How are you feeling? OK How is your pain? none Did you understand your discharge instructions?yes Do you have any questions about your discharge instructions?no Were you given any prescriptions at discharge?yes Were you able to get your prescriptions filled?yes Do you understand how to take your medications as ordered?yes Do you have any questions about your follow up appointment and do you plan to keep your follow up appointment? no questions, reviewed follow up Is there anything else that you would like to discuss?no Questions/Comments/Concerns/Other: none
== END 2025-01-26 12:52 | disposition home or self-care (01) ==
LOC: ER 16:13 → SURGOUT 16:16 → MS 01-26 08:01
PROVIDERS: Nurse Practitioner Family; Urology; Admitting Provider Family Medicine; Emergency Provider Emergency Medicine; PCP Family Medicine; Visit Provider Family Medicine
PROC: (CPT 918; principal; 2025-01-25 16:00)
DX: N13.2 Hydronephrosis with renal and ureteral calculous obstruction (principal); R10.9 Unspecified abdominal pain; Z87.442 Personal history of urinary calculi; Z95.0 Presence of cardiac pacemaker; Z95.818 Presence of other cardiac implants and grafts; Z90.710 Acquired absence of both cervix and uterus; Z87.891 Personal history of nicotine dependence; E86.0 Dehydration; I10 Essential (primary) hypertension
CPT/HCPCS: 52356; 36415; 74177; 74420; 80048; 80053; 81001; 82365; 83690; 84703; 85025; 93005; 94761; 96361; 96374; 96375; 99285; 99999; G0378; J0690; J1100; J1885; J2250; J2405; J2704; J3010; J3490; Q9966; Q9967

== ENCOUNTER 2025-06-26 16:06 | Outpatient (OUT) | payer OTHER, SELFPAY ==
--- NOTE | 2025-06-26 | XR_ITS ---
[place] [id number] Patient Name: HILDA STANLEY MRN: [id number] date: 1970 Sex: F Assigned Patient Location: [facility] Current Patient Location: Accession/Order Number: [id number] Exam Date: 06/27/2025 09:58 Report Date: 06/27/2025 10:03 At the request of: KASEY SALAZAR MD Procedure: XR cervical spine 2-3V CERVICAL SPINE 4 views: CLINICAL HISTORY: Cervical Radiculopathy M54.12 COMPARISON: None FINDINGS: Moderate spondylosis C5-6 with 2 mm of retrolisthesis of C5 on C6. Vertebral body heights appear maintained. Mild joint degenerative change. No prevertebral soft tissue swelling. XR/XR cervical spine 2-3V IMPRESSION: MODERATE SPONDYLOSIS C5-6. Impression dictated by: Titi Barros Jr., D.O. 06/27/2025 10:03 AM Dictation Location: [email or web address] Electronically authenticated by: [id number] Y Date: 06/27/2025 10:03
--- OUTSIDE RECORDS SUMMARY | 2025-06-26 16:10 | XMS_ITS | Clinical Summary ---
Author Organization [facility] Address [address] [place] [address] Care Team Providers Care Water Resources Business Segment Leader Name Role Phone Jah Pop MD Primary Care Provider [phone] Ian Bruce MD Unavailable [phone] Ian Bruce MD Unavailable [phone] Allergies No known active allergies Medications diltiazem 120 MG Cap SR 24HR take 120 mg by mouth daily. Active tramadol (ULTRAM ER) 100 MG Tab SR 24 HR take 100 mg by mouth daily. Active lidocaine 5 % Patch 1 patch by Transdermal route every 24 hours. Max of 12 hours of application then remove Active oxyCODONE-aceta minophen 5-325 MG Tab take 1 tablet by mouth every 3 hours as needed for Moderate Pain. 30 tablet 0 5 Active morphine immediate release 15 MG Tab take 1 tablet by mouth every 4 hours as needed for Moderate Pain. 20 tablet 0 5 Active polyethylene glycol Pack take 1 packet by mouth daily. 14 packet 0 5 Active Active Problems Problem Noted Date Diagnosed Date Chronic pain at pacemaker site 10/16/2015 Assessment & Plan (10/17/2015 8:58 AM EST): Acute on chronic pain- on Tramadol as outpatient Required IV Opioids initially post procedure Pain improved today, now well managed with Percocet. Right pectoral site pain, now markedly reduced post extraction. Benign hypertension 10/16/2015 Assessment & Plan (10/17/2015 8:53 AM EST): Controlled Continue Cardizem Pacemaker malfunction 10/16/2015 Pacemaker complications- Painful Device Pocket 1 12/15/2014 Assessment & Plan (10/17/2015 9:05 AM EST): Pacemaker placed in 2007 for severe symptomatic bradycardia, recent generator replacement complicated by ongoing painful pocket. She underwent Pocket revision at [facility] without resolution of pain Ad[facility] system extraction and reimplant on contralateral site s/p removal of pacemaker from right side and implantation of pacemaker on left side (persistent isolated left superior vena cava) on 10/15/15 CXR 10/16/2015 showed no pneumothorax significant diaphragmatic stimulation, device interrogation unable to program around despite changing configurations - Plan for RV lead revision today. Social History Tobacco Use Types Packs/Day Years Used Date Smoking Tobacco: Never Alcohol Use Standard Drinks/Week Comments No 0 (1 standard drink = 0.6 oz pur e alcohol) Comments No Sex and Gender Information Value Date Recorded Sex Assigned at Not on file Legal Sex Female 10:54 AM EDT Gender Identity Not on file Sexual Orientation Not on file Last Filed Vital Signs Vital Sign Reading Time Taken Comments Blood Pressure 158/85 10/19/2015 3:00 PM EST Pulse 78 10/19/2015 10:55 AM EST Temperature 36.9 C (98.4 F) 10/19/2015 3:00 PM EST Respiratory Rate 16 10/19/2015 3:00 PM EST Oxygen Saturation 95% 10/19/2015 3:00 PM EST Inhaled Oxygen Concentration - - Weight 54.8 kg (120 lb 14.4 oz) 10/19/2015 5:00 AM EST Height 157.5 cm (5' 2 ) 10/15/2015 6:30 PM EST Body Mass Index 22.11 10/15/2015 6:30 PM EST Plan of Treatment Health Maintenance Due Date Last Done Comments HEPATITIS C VIRUS SCREENING 1970 TETANUS 1970 HIV SCREENING DISCUSSION 1985 HEP B VACCINE (1 of 3 - 19+ 3-dose series) 1989 TDAP (ADULT) 1989 CERVICAL CANCER SCREENING DISCUSSION 1991 LIPID SCREENING 2010 MAMMOGRAM SCREENING DISCUSSION 2010 COLORECTAL CANCER SCREENING DISCUSSION 2015 PNEUMOCOCCAL VACCINE SERIES (1 of 1 - PCV) 2020 ZOSTER (SHINGLES) VACCINE (1 of 2) 2020 COVID-19 VACCINE (1 - 2023-25 season) 2024 INFLUENZA VACCINE (#1) 2025 Medical Devices Implanted Type Area Medical Claims Analyst Device Identifier Shelf Expiration Date Model / Serial / Lot Lead Pace Standard Mdt 52cm - [id number] Implanted:Qty: 1 on 10/15/2015 by Varghese Martínez MD at [facility] Lead Heart [employer] PACER 09/15/2017 5076- 52 / [id number] / Description:This lead reposi tioned on 10/17/2015. Lead Pace Standard Mdt 58cm - [id number] Implanted:Qty: 1 on 10/15/2015 by Varghese Martínez MD at [facility] Lead Heart [employer] PACER 09/01/2017 5076- 58 / [id number] / Description:This lead reposi tioned on 10/17/2015 due to diaphramatic stimulation. Explanted Type Area Medical Claims Analyst Device Identifier Shelf Expiration Date Model / Serial / Lot Lead Pace Standard Bsci 4136 - [id number] Explanted:Qty: 1 on 10/15/2015 by Varghese Martínez MD at [facility] Lead N/A: Heart [employer] 4136 / [id number] / Description:The lead was zac ginally implanted on 09/14/2008. Lead Pace Standard Bsci 4135 - [id number] Explanted:Qty: 1 on 10/15/2015 by Varghese Martínez MD at [facility] Lead N/A: Heart [employer]ANT[employer] CRM 4135 / [id number] / Description:The lead was zac ginally implanted on 09/14/2008. Insurance Advance Directives For more information, please contact: [phone] (7:30 AM - 6PM [facility], Thursday-Thursday) Documents on File Type Date Recorded Patient Shafting Worker Expl anation HealthCare Power of Director Child Development Center 09/24/2015 12:00 AM Date Received = Date Executed HealthCare Power of Director Child Development Center 09/24/2015 12:00 AM Date Received = Date Executed Advance Directives/Living Will 09/24/2015 12:00 AM Date Received = Date Executed Advance Directives/Living Will 09/24/2015 12:00 AM Date Received = Date Executed * Full Code (Latest Code Status on File) Date Activated Date Inactivated Comments 10/17/2015 1:00 PM 10/19/2015 7:32 PM * Full Code Date Activated Date Inactivated Comments 10/15/2015 11:34 AM 10/17/2015 1:00 PM Care Teams Water Resources Business Segment Leader Relationship Specialty Start Date End Date Jah Pop MD PCP - General Family Medicine 08/17/15 Ian Bruce MD PCP - Referring 1 Cardiovascular Disease 10/17/15 Ian Bruce MD Cardiovascular Disease 10/12/15
--- OUTSIDE RECORDS SUMMARY | 2025-06-26 16:10 | XMS_ITS | Clinical Summary ---
Author Organization [facility] Address [address] [place] [address] Care Team Providers Care Driller Hand Name Role Phone Jah Pop MD Primary Care Provider [phone] Allergies No known active allergies Medications dilTIAZem CD (Cardizem CD) 120 mg 24 hr capsuleIndicatio ns:Paroxysmal atrial fibrillation (CMS/HCC) TAKE 1 CAPSULE TWICE A DAY 60 capsule 09/28/20 23 Active lisinopril 5 mg tabletIndication s:Essential hypertension TAKE 1 TABLET DAILY 90 tablet 3 06/13/20 25 Active lisinopril 5 mg tabletIndication s:Essential hypertension TAKE 1 TABLET DAILY 90 tablet 3 06/20/20 24 025 Discontinued Active Problems Problem Noted Date Diagnosed Date Chest discomfort 10/23/2024 Cardiomegaly 07/12/2024 Nonspecific intraventricular block 07/12/2024 Rheumatic tricuspid insufficiency 07/12/2024 CVA (cerebral vascular accident) 06/09/2024 Presence of Watchman left atrial appendage closu re device 05/12/2024 Assessment & Plan (05/12/2024 11:24 AM EDT): stable Asymptomatic microscopic hematuria 05/12/2024 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 During A fib episodes she is not in RVR and rate remains controlled, she denied any symptoms Kidney stones 11/05/2018 Essential hypertension 10/16/2015 Overview (03/24/2023): Last Assessment & Plan: Controlled Continue Cardizem Assessment & Plan (05/12/2024 11:22 AM EDT): Continue lisinopril and Diltiazem- provider asked pt to check b/p at home 1-2 times/day and goal is < 130/80- she voiced understanding that staff will call her in 1-2 weeks to review b/p log and she is to call office. Chronic pain 10/16/2015 Overview (03/24/2023): Last Assessment & Plan: Acute on chronic pain- on Tramadol as outpatient Required IV Opioids initially post procedure Pain improved today, now well managed with Percocet. Right pectoral site pain, now markedly reduced post extraction. Pacemaker malfunction 10/16/2015 Pacemaker complications 10/15/2015 Overview (03/24/2023): Last Assessment & Plan: Pacemaker placed in 2007 for severe symptomatic [...] - Plan for RV lead revision today. Sinus node dysfunction 03/25/2013 Assessment & Plan (05/12/2024 11:19 AM EDT): Stable s/p PPM implantation Paroxysmal supraventricular tachycardia 03/25/20 13 Assessment & Plan (05/12/2024 11:20 AM EDT): Stable s/p SVT Ablation 2008- remains on diltiazem. Dyspnea 03/25/2013 Pacemaker 03/25/2013 Overview (03/24/2023): h/o sinus bradycardia Assessment & Plan (05/12/2024 11:25 AM EDT): Device interrogation q 6 months Encounters Date Type Department Care Team Description 06/13/[address] [facility] [address] [place] [address] Rick Landrum MD Essential hypertension (Primary Dx) 05/22/2025 1:10 PM EDT Ancillary Procedure [facility] [address] [place] [address] Adjustment and management of cardiac pacemaker 05/20/2025 Orders Only [facility] [address] [place] [address] Clement Perez MD 05/01/2025 10:00 AM EDT Office Visit [facility] [address] [place] [address] Josh Lindo MD Chest discomfort (Primary Dx); Paroxysmal atrial fibrillation (CMS/HCC); Presence of Watchman left atrial appendage closure device; Cerebrovascular accident (CVA), unspecified mechanism (CMS/HCC); Sinus node dysfunction (CMS/HCC); Pacemaker; Essential hypertension; Persistent left superior vena cava from Last 3 Months Family History Medical History Relation Name Comments Bilateral breast cancer Other Coronary artery disease Other Diabetes Other Hypertension Other Relation Name Status Comments Father Mother Alive Other Social History Tobacco Use Types Packs/Day Years Used Date Smoking Tobacco: Never Passive Smoke Exposure: Never Smokeless Tobacco: Never Tobacco Cessation:Counseling Given: Not Answered Alcohol Use Standard Drinks/Week Comments Not Currently 0 (1 standard drink = 0.6 oz pur e alcohol) Humiliation, Afraid, Rape, and Kick questionnair e Answer Date Recorded Within the last year, have y ou been afraid of your partner or ex-partner? No 06/08/2023 Within the last year, have y ou been humiliated or emotionally abused in other ways by your partner or ex-partner? No Within the last year, have y ou been kicked, hit, slapped, or otherwise physically hurt by your partner or ex-partner? No 06/08/2023 Within the last year, have y ou been raped or forced to have any kind of sexual activity by your partner or ex-partner? No 06/08/2023 PHQ-2 Answer Date Recorded Patient Health Questionnaire-2 Score 0 06/08/2023 [place] Safety & Environment Answer Date Rec orded Within the last year, have y ou been afraid of your partner or ex-partner? No 06/08/2023 Within the last year, have y ou been humiliated or emotionally abused in other ways by your partner or ex-partner? No 06/08/2023 Within the last year, have y ou been kicked, hit, slapped, or otherwise physically hurt by your partner or ex-partner? No 06/08/2023 Within the last year, have y ou been raped or forced to have any kind of sexual activity by your partner or ex-partner? No 06/08/2023 Physically or Sexually Abused Not on file Comments No Sex and Gender Information Value Date Recorded Sex Assigned at Not on file Legal Sex Female 10:29 PM EDT Gender Identity Not on file Sexual Orientation Not on file Last Filed Vital Signs Vital Sign Reading Time Taken Comments Blood Pressure 133/84 05/01/2025 10:05 AM EDT Pulse 64 05/01/2025 10:05 AM EDT Temperature 36 C (96.8 F) 06/09/2024 12:25 PM EDT Respiratory Rate 15 06/09/2024 4:12 PM EDT Oxygen Saturation 96% 05/01/2025 10:05 AM EDT Inhaled Oxygen Concentration - - Weight 60.8 kg (134 lb) 05/01/2025 10:05 AM EDT Height 157.5 cm (5' 2 ) 05/01/2025 10:05 AM EDT Body Mass Index 24.51 05/01/2025 10:05 AM EDT Plan of Treatment Health Maintenance Due Date Last Done Comments CT Colonography 1970 Colonoscopy 1970 Colorectal Cancer Screening 1970 FIT-DNA 1970 FIT 1970 FOBT 1970 Sigmoidoscopy 1970 Depression Screening 1982 Hepatitis B Vaccines (1 of 3 - 19+ 3-dose series) 1989 Pneumococcal Vaccine: Pediatrics (0 to 5 Years) and At-Risk Patients (6 to 64 Years) (1 of 2 - PCV) 1989 Pap Smear 1991 Adult Tetanus 1992 Cervical Cancer Screening 2000 HPV/Cotest 2000 Mammogram 2010 Zoster Vaccines (1 of 2) 2020 COVID-19 Vaccine (3 2023-2 5 season) 2024 01/25/2021, 01/04/2021 Influenza Vaccine (#1) 2025 08/24/2019 HIB Vaccines Aged Out No longer eligi ble based on patient's age to complete this topic HPV Vaccines Aged Out No longer eligi ble based on patient's age to complete this topic IPV Vaccines Aged Out No longer eligi ble based on patient's age to complete this topic Meningococcal B Vaccine Aged Out No l onger eligible based on patient's age to complete this topic Meningococcal Vaccine Aged Out No margo kuldeep eligible based on patient's age to complete this topic Rotavirus Vaccines Aged Out No longer eligible based on patient's age to complete this topic Medical Devices Implanted Type Area Diamond Sizer And Grader Device Identifier Shelf Expiration Date Model / Serial / Lot July Lilly Mri Dr El - [id number] - [id number] Implanted:Qty: 1 on 05/18/2023 by Clement Perez MD at [facility] Pacemaker [employer] [id number] 03/19/2025 [id number] / [id number] / Procedures Procedure Name Priority Date/Time Associated Diagnosis Comments CARDIAC DEVICE CHECK CHECK - REMOTE Routine 06/23/2025 10:49 AM EDT Adjustment and management of cardiac pacemaker CARDIAC DEVICE CHECK - REMOTE - PACEMAKER Routine 05/20/2025 12:00 AM EDT CARDIAC DEVICE CHECK CHECK - REMOTE Routine 03/31/2025 11:34 AM EDT Adjustment and management of cardiac pacemaker from Last 3 Months Results * CARDIAC DEVICE CHECK - REMOTE - PACEMAKER (06/23/2025 10:49 AM EDT) Only the most recent of2 resultswithin the time period is included. Clement Perez MD CV IMPLANTABLE CARDIAC DEVICE OK OCEDURES Final Result CPACS * Cardiac device check - Remote pacemaker (05/20/2025 12:00 AM EDT) Anatomical Region Laterality Modality Other 05/20/2025 Clement Perez MD CV IMPLANTABLE CARDIAC DEVICE OK OCEDURES Final Result from Last 3 Months Insurance [employer] Advance Directives * Full Code (Latest Code Status on File) Date Activated Date Inactivated Comments 06/09/2024 12:42 PM 06/09/2024 6:44 PM * Full Code Date Activated Date Inactivated Comments 05/18/2023 4:24 PM 05/18/2023 7:15 PM Care Teams Driller Hand Relationship Specialty Start Date End Date Jah Pop MD [address] [facility] [address] [address] PCP - General 10/08/18
--- OUTSIDE RECORDS SUMMARY | 2025-06-26 16:10 | XMS_ITS | Clinical Summary ---
Author Organization [facility] Address [address] [place] [address] Care Team Providers Care Ruby Rails Developer Name Role Phone Unavailable Primary Care Provider Unavailabl e Social History Tobacco Use Types Packs/Day Years Used Date Smoking Tobacco: Never Assessed Comments Unknown Sex and Gender Information Value Date Recorded Sex Assigned at Not on file Legal Sex Female 8:33 PM EDT Gender Identity Not on file Sexual Orientation Not on file Last Filed Vital Signs Vital Sign Reading Time Taken Comments Blood Pressure 146/96 01/10/2019 12:00 PM EST Pulse - - Temperature - - Respiratory Rate - - Oxygen Saturation - - Inhaled Oxygen Concentration - - Weight 57.2 kg (126 lb) 01/10/2019 12:00 PM EST Height 157.5 cm (5' 2 ) 01/10/2019 12:00 PM EST Body Mass Index 23.05 01/10/2019 12:00 PM EST Plan of Treatment Not on file Insurance [employer]
--- OUTSIDE RECORDS SUMMARY | 2025-06-26 16:10 | XMS_ITS | Encounter Summary ---
Author Organization [facility] Address [address] [place] [address] Care Team Providers Care Beef Specialist Name Role Phone Jah Pop MD Primary Care Provider [phone] Reason for Visit * Reason Comments Med Refill Encounter Details Date Type Department Care Team (Late st Contact Info) Description 12/31/2022 Refill [facility] Cardiology Clinic [address] [place] [address] Rick Landrum MD [address] [place] [address] Paroxysmal atrial fibrillation (CMS/HCC) Social History Tobacco Use Types Packs/Day Years Used Date Smoking Tobacco: Never Assessed Comments Unknown Sex and Gender Information Value Date Recorded Sex Assigned at Not on file Legal Sex Female 10:29 PM EDT Gender Identity Not on file Sexual Orientation Not on file documented as of this encounter Plan of Treatment Not on file documented as of this encounter Visit Diagnoses Diagnosis Paroxysmal atrial fibrillation (CMS/HCC) Atrial fibrillation documented in this encounter Care Teams Beef Specialist Relationship Specialty Start Date End Date Jah Pop MD [address] [address] [address] PCP - General 10/08/18 documented as of this encounter
--- OUTSIDE RECORDS SUMMARY | 2025-06-26 16:10 | XMS_ITS | Encounter Summary ---
Author Organization [facility] Address [address] [place] [address] Care Team Providers Care Shipping Coordinator Name Role Phone Jah Pop MD Primary Care Provider [phone] Encounter Details Date Type Department Care Team (Late st Contact Info) Description 05/20/2025 Orders Only [facility] [address] [place] [address] Clement Perez MD [address] [place] [address] Social History Tobacco Use Types Packs/Day Years Used Date Smoking Tobacco: Never Passive Smoke Exposure: Never Smokeless Tobacco: Never Alcohol Use Standard Drinks/Week Comments Not Currently [...] Recorded Patient Health Questionnaire-2 Score 0 06/08/2023 [place] Safety & Environment Answer Date Rec orded [...] on file documented as of this encounter Procedures Procedure Name Priority Date/Time Associated Diagnosis Comments CARDIAC DEVICE CHECK - REMOTE - PACEMAKER Routine 05/20/2025 12:00 AM EDT documented in this encounter Results * Cardiac device check - Remote pacemaker (05/20/2025 12:00 AM EDT) Anatomical Region Laterality Modality Other 05/20/2025 Clement Perez MD CV IMPLANTABLE CARDIAC DEVICE WI OCEDURES Final Result documented in this encounter Visit Diagnoses Not on filedocumented in this encounter Care Teams Shipping Coordinator Relationship Specialty Start Date End Date Jah Pop MD [address] [place] [address] PCP - General 10/08/18 documented as of this encounter
--- OUTSIDE RECORDS SUMMARY | 2025-06-26 16:10 | XMS_ITS | Encounter Summary ---
Author Organization [facility] Address [address] [place] [address] Care Team Providers Care Senior Business Manager Name Role Phone Jah Pop MD Primary Care Provider + Ian Bruce MD Unavailable + [phone] Source Comments In the event this information is protected by the Federal Confidentiality of Alcohol and Drug AbusePatient Records regulations: The Federal rules restrict any use of the information to criminally investigate or prosecute any alcohol or drug abuse patient.[facility] Encounter Details Date Type Department Care Team (Late st Contact Info) Description 03/19/2022 Patient Msg [facility] [address] [place], [place] [id number] Amaya Short MD Social History Tobacco Use Types Packs/Day Years Used Date Smoking Tobacco: Never Smokeless Tobacco: Never Alcohol Use Standard Drinks/Week Comments No 0 (1 standard drink = 0.6 oz pur e alcohol) Area Deprivation Index Answer Date Miquel rded National Score (1-100), lower number is lower ri sk Not on file 11/01/2020 State Score (1-10), lower number is lower risk N ot on file 11/01/2020 Data from: https://www.neighborhoodatlas.medicine.[facility].edu/. Last address used for calculation Not on file 11/01/2020 Comments No Sex and Gender Information Value Date Recorded Sex Assigned at Not on file Legal Sex Female 11:12 AM EST Gender Identity Not on file Sexual Orientation Not on file documented as of this encounter Plan of Treatment Not on file documented as of this encounter Visit Diagnoses Not on filedocumented in this encounter Care Teams Senior Business Manager Relationship Specialty Start Date End Date Jah Pop MD PCP - General Family Medicine 10/08/18 Ian Bruce MD [address] [place] [address] Water Main Inspector Cardiology 05/31/19 documented as of this encounter
--- OUTSIDE RECORDS SUMMARY | 2025-06-26 16:10 | XMS_ITS | Clinical Summary ---
Author Organization [facility] Address [address] [place] [address] Phone Care Team Providers Care Clinical Review Specialist Name Role Phone Unavailable Primary Care Provider Unavailabl e Social History Tobacco Use Types Packs/Day Years Used Date Smoking Tobacco: Never Assessed Comments Unknown Sex and Gender Information Value Date Recorded Sex Assigned at Not on file Legal Sex Female 7:23 PM EST Gender Identity Not on file Sexual Orientation Not on file Plan of Treatment Not on file
--- OUTSIDE RECORDS SUMMARY | 2025-06-26 16:10 | XMS_ITS | Clinical Summary ---
Author Organization [facility] Address [address] [place] [id number] Care Team Providers Care Corrosion Prevention Metal Sprayer Name Role Phone Jah Pop MD Primary Care Provider + Ian Bruce MD Unavailable [phone] Allergies No known active allergies Medications diltiazem CD (CARTIA XT) 120 mg 24 hr capsule Take one(1) tablet two(2) times daily by mouth Active apixaban (ELIQUIS) 5 mg tab(s) Take by mouth twice daily. Active gabapentin (NEURONTIN) 100 mg capsule Take 1 capsule by mouth one time only for 1 dose. 2 hrs prior to procedure 1 capsule 9 Active tamsulosin ER (FLOMAX) 0.4 mg cap Take 1 capsule by mouth once daily for 14 days. 14 capsule 9 Active oxybutynin (DITROPAN) 5 mg tablet Take 1 tablet by mouth three times daily as needed for up to 7 days. 15 tablet 9 Active ketorolac (TORADOL) 10 mg tablet Take 1 tablet by mouth every 8 hours as needed. 15 tablet 9 Active Additional Information Patient not taking.Reason: Other, Reported on 08/26/2019 Active Problems Problem Noted Date Diagnosed Date Kidney stones 11/05/2018 Sinus node dysfunction 11/05/2018 Hypertension Pacemaker Overview (10/11/2018): h/o sinus bradycardia Resolved Problems Problem Noted Date Diagnosed Date Resolved Date Preop examination 10/15/2018 11/18/2018 Overview (10/15/2018): Added automatically from request for surgery [id number] Uterine leiomyoma 10/15/2018 11/18/2018 Overview (10/15/2018): Added automatically from request for surgery [id number] Fibroid uterus 10/15/2018 11/18/2018 Overview (10/15/2018): Added automatically from request for surgery [id number] Family History Medical History Relation Comments Cancer Father brain Cancer Maternal Grandfather Stroke Maternal Grandfather Stroke Maternal Grandmother Relation Status Comments Brother Alive Father Maternal Grandfather Maternal Grandmother Mother Alive Paternal Grandfather Paternal Grandmother Social History Tobacco Use Types Packs/Day Years [...] N ot on file 11/01/2020 Data from: https://www.neighborhoodatlas.medicine.[facility].edu/. Last address used for calculation Not on file 11/01/2020 Comments No Sex and Gender Information Value Date Recorded Sex Assigned at Not on file Legal Sex Female 11:12 AM EST Gender Identity Not on file Sexual Orientation Not on file Last Filed Vital Signs Vital Sign Reading Time Taken Comments Blood Pressure 142/60 06/01/2019 11:30 AM EDT Pulse 77 06/01/2019 11:30 AM EDT Temperature 36.8 C (98.2 F) 06/01/2019 11:15 AM EDT Respiratory Rate 16 06/01/2019 11:3 0 AM EDT Oxygen Saturation 98% 06/01/2019 11: 30 AM EDT Inhaled Oxygen Concentration - - Weight 58.5 kg (128 lb 15.5 oz) 05/31/2019 1:59 PM EDT Height 157.5 cm (5' 2.01 ) 05/31/2019 1:59 PM ED T Body Mass Index 23.58 05/31/2019 1:59 PM EDT Plan of Treatment Health Maintenance Due Date Last Done Comments Anxiety Screening 1988 Depression Screening 1988 HIV Screening 1988 Hepatitis C Screening 1988 DTaP,Tdap,Td Vaccine (1 - Tdap) 1989 Hepatitis B Vaccine (1 of 3 - 19+ 3-dose series) 1989 Cervical Cancer Screening [address] M[address] Colonography 2015 Cologuard (FIT-DNA) 2015 Colonoscopy 2015 Colorectal Cancer Screening 2015 Fecal Occult Blood 2015 Lipid Screening 2015 Sigmoidoscopy 2015 Pneumococcal Vaccine: 50+ (1 of 1 - PCV) 2020 Shingrix Vaccine (1 of 2) 2020 Diabetes Screening 05/31/2022 05/31/2019, 11/05/2018 Influenza Vaccine (#1) 2025 Medical Devices Implanted Type Area Immigration Associate Device Identifier Shelf Expiration Date Model / Serial / Lot [id number]-[id number] 05-10-2015 Implanted: (Quantity not on file) Pacemaker [employer] K173 INGENIO / [id number] / Stent Inlay Logan 7fr Taper [place] Green Polymer Phreecoat 22cm Ureteral - [id number] Implanted:Qty : 1 on 06/01/2019 by Froylan Simons MD at [facility] Urologic Stents Right: Ureter [employer] 03/24/2023 [id number] / / [id number] Procedures Procedure Name Priority Date/Time Associated Diagnosis Comments COMPREHENSIVE METABOLIC PANEL Routine 05/31/2019 9:16 AM EDT Pacemaker Nephrolithiasis from Last 3 Months or Most Recently Relevant to Health Maintenance Results * (ABNORMAL) COMP METABOLIC PANEL (05/31/2019 9:16 AM EDT) Protein, Total 7.1 6.3 - 8.0 g/dL 05/31/2019 11:41 AM EDT [facility] Albumin 4.2 3.9 - 4.9 g/dL 05/31/2019 11:41 AM EDT [facility] Calcium 10.1 8.5 - 10.2 mg/dL 05/31/2019 11:[address] [facility] Bilirubin, Total 0.3 0.2 - 1.3 mg/dL 05/31/2019 11:[address] [facility] Alkaline Phosphatase 76 34 - 123 U/L 05/31/2019 11:[address] [facility] AST 10(L) 13 - 35 U/L 05/31/2019 11:[address] [facility] Glucose 78 74 - 99 mg/dL 05/31/2019 11:[address] [facility] Comment: The [place] Diabetes Association (ADA) provides guidance for cutoff values for fasting glucose and random glucose. The ADA defines fasting as no caloric intake for at least 8 hours. Fasting plasma glucose results between 100 to 125 mg/dL indicate increased risk for diabetes (prediabetes). Fasting plasma glucose results greater than or equal to 126 mg/dL meet the criteria for diagnosis of diabetes. In the absence of unequivocal hyperglycemia, results should be confirmed by repeat testing. In a patient with classic symptoms of hyperglycemia or hyperglycemic crisis, random plasma glucose results greater than or equal to 200 mg/dL meet the criteria for diagnosis of diabetes. Reference: Standards of Medical Care in Diabetes 2016, [place] Diabetes Association. Diabetes Care. 2016.39(Suppl 1). BUN 15 7 - 21 mg/dL 05/31/2019 11:[address] [facility] Creatinine 0.64 0.58 - 0.96 mg/dL 05/31/2019 11:[address] [facility] Sodium 140 136 - 144 mmol/L 05/31/2019 11:[address] [facility] Potassium 4.0 3.7 - 5.1 mmol/L 05/31/2019 11:[address] [facility] Chloride 104 97 - 105 mmol/L 05/31/2019 11:[address] [facility] CO2 26 22 - 30 mmol/L 05/31/2019 11:[address] [facility] Anion Gap 10 9 - 18 mmol/L 05/31/2019 11:[address] [facility] ALT 13 7 - 38 U/L 05/31/2019 11:[address] [facility] eGFR- >60 05/31/2019 11:[address] [facility] eGFR-All Other Races >60 . 05/31/2019 11:41 AM EDT [facility] Comment: eGFR (Estimated GFR) Units of measure: mL/min/1.73 meters squared eGFR is derived from the reexpressed MDRD Study equation using the following parameters: serum creatinine, age, gender and race. The creatinine assay has been calibrated to be traceable to IDMS. An eGFR <60 mL/min/1.73m2 for >3 months is consistent with chronic kidney disease. Refer to KDOQI guidelines for clinical interpretation. In patients with unstable renal function, e.g. those with acute kidney injury, the eGFR may not accurately reflect actual GFR. Blood specimen (specimen) BLOOD SPECIMEN / Unknown 05/31/2019 9:16 AM EDT 05/31/2019 9:18 AM EDT Gómez Sands PA-C LABORATORY Final R esult [facility] [address] [place] [address] [facility] [address] [place] [address] from Last 3 Months or Most Recently Relevant to Health Maintenance Insurance [facility] PPO Advance Directives Documents on File Type Date Recorded Patient Finishing Frame Runner Expl anation Advance Directive(s) 05/31/2019 2:25 PM Care Teams Corrosion Prevention Metal Sprayer Relationship Specialty Start Date End Date Jah Pop MD PCP - General Family Medicine 10/08/18 Ian Bruce MD [address] [place] [address] Freight Delivery Driver Cardiology 05/31/19
--- OUTSIDE RECORDS SUMMARY | 2025-06-26 16:10 | XMS_ITS | Encounter Summary ---
Author Organization [facility] Address [address] [place] [place] [address] Care Team Providers Care Lighting Equipment Operator Name Role Phone Jah Pop MD Primary Care Provider [phone] Reason for Visit * Reason Comments Med Refill Encounter Details Date Type Department Care Team (Late st Contact Info) Description 06/13/2025 Refill [facility] [address] [place] [address] Rick Landrum MD [address] [facility] [place] [address] Essential hypertension (Primary Dx) Social History Tobacco Use Types Packs/Day Years [...] as of this encounter Visit Diagnoses Diagnosis Essential hypertension- Primary Unspecified essential hypertension documented in this encounter Care Teams Lighting Equipment Operator Relationship Specialty Start Date End Date Jah Pop MD [address] [place] [address] PCP - General 10/08/18 documented as of this encounter
== END 2025-06-26 16:07 | disposition home or self-care (01) ==
LOC: RAD 16:08
PROVIDERS: PCP Family Medicine; Visit Provider Family Medicine
DX: M54.12 Radiculopathy, cervical region (principal); M47.812 Spondylosis without myelopathy or radiculopathy, cervical region
CPT/HCPCS: 72040

== ENCOUNTER 2025-07-03 07:54 | Outpatient (RCR) | payer OTHER, SELFPAY | END 2025-07-14 11:20 | disposition home or self-care (01) | LOC: PT 07:54 | PROVIDERS: PCP Family Medicine; Visit Provider Family Medicine | DX: M54.14 Radiculopathy, thoracic region (principal); M54.12 Radiculopathy, cervical region | CPT/HCPCS: 97110; 97112; 97161 ==